=== PATIENT | female | born 1995 | race Two or more races ===

== ENCOUNTER 2024-11-20 18:49 | Inpatient (IN) | payer MEDICAID, OTHER ==
[~2024-11-20] VITALS: Ht 182.9 cm; Wt 102.1 kg
--- NOTE | 2024-11-20 19:26 | ED.PDOC ---
History of Present Illness HPI Comments 28 y/o F, with a Hx of DM - nonmedicated, presents with significant other for c/c of unhealing diabetic foot wound to bottom aspect of left foot, with associated swelling and pain and fever. Patient endorses on developing symptoms 2x days ago after cutting her foot by accident 3x weeks ago. Patient reports w rapping wound and using [id number] pain medication to no relief or improvement of symptoms. Denial of any wound discharge, nausea, vomiting, radiating pain or swelling, or further associated symptoms. Chief Complaint: Lower Extremity Time Seen by MD: 19:20 Reviewed Notes: Nurses Notes, Medications, Allergies Allergies: Coded Allergies: NO KNOWN ALLERGIES (Unverified , 11/20/24) Information Source: Patient Mode of Arrival: Wheelchair Severity: Moderate Timing: Days Duration: Since onset Prehospital treatment: None Past Medical History PAST MEDICAL HISTORY: DM All Other Systems: Reviewed and Negative (As per HPI) Physical Exam General Appearance: No Apparent Distress, Normal HEENT: Normal ENT Inspection, Pharynx Normal, TMs Normal Neck: Full Range of Motion, Non-Tender, Normal, Normal Inspection Respiratory: Chest Non-Tender, Lungs Clear, No Accessory Muscle Use, No Respiratory Distress, Normal Breath Sounds Cardiovascular: No Edema, No JVD, No Murmur, No Gallop, Normal Peripheral Pu lses, Regular Rate/Rhythm Breast Exam: Deferred Gastrointestinal: No Organomegaly, Non Tender, No Pulsatile Mass, Normal Bowel Sounds, Soft Genitalia: Deferred Pelvic: Deferred Rectal: Deferred Extremities: No calf tenderness, Normal capillary refill, Normal range of motion, Other (diffused edema with mild mild erythema associated with diabetic foot ulcer on plantar aspect of left foot ) Musculoskeletal : Apperance: Normal Neurologic: Alert, desktop support technician II-XII nml as Tested, No Motor Deficits, Normal Affect, Normal Mood, No Sensory Deficits Cerebellar Function: Normal Reflexes: Normal Skin: Dry, Normal Color, Warm Lymphatic: No Adenopathy Was a procedure done? Was a procedure done?: No Differential Dx Considerations may include: unhealing diabetic foot wound, cellulitis, dermatitis, viral syndrome, among others X-Ray, Labs, Meds, VS Vital Signs Date Time Temp Pulse Resp B/P (MAP) Pulse Ox O2 Delivery O2 Flow Rate FiO2 11/20/24 20:23 101.7 11/20/24 20:16 22 99 Room Air* 0 21 11/20/24 19:55 101.7 113 22 90/50 (63) 99 101.7 11/20/24 18:52 99.2 118 20 114/61 99 99.2 Lab Test 11/20/24 20:09 11/20/24 19:30 11/20/24 19:29 Range/Units POC Glucose 465 *H 70-106 mg/dl White Blood Count 22.4 H 4.4-10.8 10^3/uL Red Blood Count 4.06 4.0-5.20 10^6/uL Hemoglobin 11.9 L 12.2-16.2 g/dL Hematocrit 34.6 L 36.0-46.0 % Mean Corpuscular Volume 85.3 80.0-100.0 fL Mean Corpuscular Hemoglobin 29.4 28.0-32.0 pg Mean Corpuscular Hemoglobin Concent 34.5 32.0-36.0 g/dL Red Cell Distribution Width 13.1 11.8-14.3 % Platelet Count 332 140-450 10^3/uL Mean Platelet Volume 8.2 6.9-10.8 fL Neutrophils (%) (Auto) 91.6 H 37.0-80.0 % Lymphocytes (%) (Auto) 2.7 L 10.0-50.0 % Monocytes (%) (Auto) 5.5 0.0-12.0 % Eosinophils (%) (Auto) 0.0 0.0-7.0 % Basophils (%) (Auto) 0.2 0.0-2.0 % Neutrophils # (Auto) 20.5 H 1.6-8.6 10 ^3/uL Lymphocytes # (Auto) 0.6 0.4-5.4 10 ^3/uL Monocytes # (Auto) 1.2 0-1.3 10 ^3/uL Eosinophils # (Auto) 0 0-0.8 10 ^3/uL Basophils # (Auto) 0 0-0.2 10 ^3/uL Nucleated Red Blood Cells 0.0 % Sodium Level 129 L 136-145 mmol/L Potassium Level 3.7 3.5-5.1 mmol/L Chloride Level 94 L 98-107 mmol/L Carbon Dioxide Level 19 L 20-31 mmol/L Anion Gap 16 H 5-15 Blood Urea Nitrogen 15 9-23 mg/dL Creatinine 0.97 0.550-1.02 mg/dL Glomerular Filtration Rate Calc 81 >90 mL/min BUN/Creatinine Ratio 15.5 10.0-20.0 Serum Glucose 447 *H 74-106 mg/dL Lactic Acid Level 2.3 *H 0.4-2.0 mmol/L Calcium Level 9.2 8.7-10.4 mg/dL Total Bilirubin 2.1 H 0.2-1.0 mg/dL Aspartate Amino Transferase (AST) < 8 L 13-40 U/L Alanine Aminotransferase (ALT) 10 7-40 U/L Alkaline Phosphatase 128 H 46-116 U/L Total Protein 7.9 5.7-8.2 g/dL Albumin 4.2 3.2-4.8 g/dL Beta-Hydroxybutyric Acid 3.651 H < 0.4 mmol/L Blood Gas Specimen Type Venous Blood Gas Sample Site Vbg - n/a Blood Gas Patient Temperature 37.0 Arterial Blood Date Drawn [id number] Otoniel Test N/a Venous Blood pH 7.431 H 7.320-7.430 Venous Blood pCO2 at Patient Temp 28.7 L 38.0-54.0 mmHg Venous Blood pO2 at Patient Temp < 36.5 23.0-48.0 mmHg Venous Blood HCO3 18.7 L 22.0-29.0 mmol/L Venous Blood Base Excess -4.1 L -2.0-3.0 mmol/L Blood Gas Modality Vbg - n/a FiO2 % 21.0 Current Medications Medications (Trade) Dose Ordered Sig/Nadir Route Start Time Stop Time Status Last Admin Sodium Chloride 1,000 ml @ 1,000 mls/hr Q1H ONCE IVB 11/20/24 19:15 11/20/24 20:14 DC 11/20/24 19:58 Insulin Human Regular (InsuLIN R) 6 units ONCE ONCE SC 11/20/24 19:15 11/20/24 19:18 DC 11/20/24 20:09 Ondansetron HCl (Zofran) 4 mg ONCE ONCE IV 11/20/24 19:15 11/20/24 19:18 DC 11/20/24 20:06 Piperacillin Sod/ Tazobactam Sod 100 ml @ 100 mls/hr ONCE ONCE IV 11/20/24 19:15 11/20/24 20:14 DC 11/20/24 20:06 Acetaminophen (Tylenol Tablet) 1,000 mg ONCE ONCE PO 11/20/24 20:15 11/20/24 20:16 DC 11/20/24 20:23 Time of 1ST Reevaluation: 19:50 Reevaluation 1ST: Unchanged Patient Education/Counseling: Treatment, Other (need for admission ) Family Education/Counseling: Treatment, Other (need for admission ) SEPSIS Sepsis Screen Date sepsis recognized/suspect: Nov 20, 2024 Time Sepsis recognized/suspect: 1899 Recent Procedure: No On Antibiotic Therapy: No Respiratory Rate >20: No Heart Rate >90: No Temp<36 C (96.8 F) or >38.3 C: No SBP <90 or MAP <65 mmHG: No New Acute Mental Status Change: No Is the patient on CPAP, BIPAP,: No Physician Orders Blood Culture (11/20/24 19:11) Venous Blood Gas (11/20/24 19:11) Blood Glucose Q4h (11/20/24 19:11) L Foot 3 View Xray (11/20/24 19:11) Vital Signs Date Time Temp Pulse Resp B/P (MAP) Pulse Ox O2 Delivery O2 Flow Rate FiO2 11/20/24 20:23 101.7 11/20/24 20:16 22 99 Room Air* 0 21 11/20/24 19:55 101.7 113 22 90/50 (63) 99 101.7 11/20/24 18:52 99.2 118 20 114/61 99 99.2 Laboratory Tests Test 11/20/24 19:30 Lactic Acid Level 2.3 mmol/L (0.4-2.0) *H White Blood Count 22.4 10^3/uL (4.4-10.8) H Medications Medications Dose Ordered Sig/Nadir Route Start Time Stop Time Status Last Admin Dose Admin Acetaminophen 1,000 mg ONCE ONCE PO 11/20/24 20:15 11/20/24 20:16 DC 11/20/24 20:23 Insulin Human Regular 6 units ONCE ONCE SC 11/20/24 19:15 11/20/24 19:18 DC 11/20/24 20:09 Ondansetron HCl 4 mg ONCE ONCE IV 11/20/24 19:15 11/20/24 19:18 DC 11/20/24 20:06 Piperacillin Sod/ Tazobactam Sod 100 ml @ 100 mls/hr ONCE ONCE IV 11/20/24 19:15 11/20/24 20:14 DC 11/20/24 20:06 Sodium Chloride 1,000 ml @ 1,000 mls/hr Q1H ONCE IVB 11/20/24 19:15 11/20/24 20:14 DC 11/20/24 19:58 Departure 1 Departure Time of Disposition: 21:09 Impression: Primary Impression: Diabetic ulcer of left foot Additional Impression: Cellulitis of left foot Disposition: HOME / SELF CARE / HOMELESS Condition: Stable Discharged With: Self Comments Patient with uncontrolled diabetes with noncompliance and chronic hyperglycemia. Now patient has left foot ulcer with cellulitis. Patient will need admission for supportive care and further workup. Lab results reviewed. White blood cell count high at 22. Mild anemia with H and H of 12 and 35. Hyponatremia 129. Hypochloremia 94. Anion gap borderline elevated at 16. Glucose high at 447. Lactic acid slightly elevated 2.3. Beta hydroxybutyrate elevated at 3.65. Venous gas shows a normal pH. Patient was given IV fluids and insulin and IV antibiotics Zosyn and vancomycin. Patient will need to be admitted for supportive care and further workup. Critical Care Note Critical Care Time?: Yes (35 min-critical care time only) Critical care comment: Total critical care time: Approximately 36 minutes Due to a high probability of clinically significant, life threatening deterioration, the patient required my highest level of preparedness to intervene emergently and I personally spent this critical care time directly and personally managing the patient. This critical care time included obtaining a history; examining the patient; pulse oximetry; ordering and review of studies; arranging urgent treatment with development of a management plan; evaluation of patient's response to treatment; frequent reassessment; and, discussions with other providers. This critical care time was performed to assess and manage the high probability of imminent, life-threatening deterioration that could result in multi-organ failure. It was exclusive of separately billable procedures and treating other patients. Stability Stability form required: No Heart Score Heart Score: Heart Score Response (Comments) Value History N/A 0 EKG N/A 0 Age N/A 0 Risk Factors N/A 0 Troponin N/A 0 Total 0 I personally scribed for SURESH BURNS MD ([email or web address]) on 11/20/24 at 19:26. Electronically submitted by Candido Dominguez ([email or web address]). SURESH BURNS MD Nov 20, 2024 19:26
[2024-11-20 19:51] LABS: Hematocrit 34.6 % (36.0-46.0); Hemoglobin 11.9 g/dL (12.2-16.2); Mean Corpuscular Hemoglobin 29.4 pg (28.0-32.0); Mean Corpuscular Volume 85.3 fL (80.0-100.0); Nucleated Red Blood Cells % 0.0 %
[2024-11-20] MEDS: SODIUM CHLORIDE 0.9% 1,000 ML IVB ONE (19:58)
[2024-11-20] MEDS: PIPERACILLIN-TAZOB 3.375GM 100 ML IV ONE (20:06)
[2024-11-20] MEDS: ONDANSETRON HCL 4 MG/2 ML VIAL IV ONE (20:06)
[2024-11-20] MEDS: InsuLIN REG 1unit/0.01ml Soln (100units/ml) SC ONE (20:09)
[2024-11-20 20:14] LABS: Alanine Aminotransferase 10 U/L (7-40); Albumin 4.2 g/dL (3.2-4.8); Anion Gap 16 (5-15); BUN/Creatinine Ratio 15.5 (10.0-20.0); Blood Urea Nitrogen 15 mg/dL (9-23); Calcium 9.2 mg/dL (8.7-10.4); Potassium 3.7 mmol/L (3.5-5.1); Total Protein 7.9 g/dL (5.7-8.2)
[2024-11-20 20:16] VITALS: RESP 22; O2SAT 99
[2024-11-20 20:19] LABS: Carbon Dioxide 19 mmol/L (20-31); Chloride 94 mmol/L (98-107); Sodium 129 mmol/L (136-145)
[2024-11-20 20:20] LABS: Alkaline Phosphatase 128 U/L (46-116); Bilirubin, Total 2.1 mg/dL (0.2-1.0)
[2024-11-20] MEDS: ACETAMINOPHEN 325 MG TAB PO ONE (20:23)
[2024-11-20 20:29] LABS: Glucose 447 mg/dL (74-106); Lactic Acid w/Reflex 2.3 mmol/L (0.4-2.0)
--- NOTE | 2024-11-20 20:38 | DVH ---
CLINICAL INDICATION: pain / swelling / diabetic wound TECHNIQUE: XYXY L FOOT 3 VIEW XRAY Comparison: None FINDINGS/IMPRESSION: : There is no evidence of acute fracture or dislocation. Diffuse soft tissue swelling.
[2024-11-20] MEDS: VANCOMYCIN 1GM/250ML KIT 250 ML IV ONE (21:31)
[2024-11-20] MEDS: MORPHINE SULFATE 4 MG/ML SYR/VIAL IV ONE (21:39)
[2024-11-20] MEDS ORDERED: DEXTROSE (50%) 50ML SYRG IV PRN (23:30)
--- NOTE | 2024-11-20 23:39 | DVHHP2 ---
History of Present Illness Reason for Visit: Left foot wound History of Present Illness 28-year-old female presents for evaluation of left foot wound. Patient reports developing a wound three weeks ago when she was picking at a callus on her left foot. She states three days ago she noticed some purulent discharge and foul smell from the wound. She has been having fever since yesterday. No other acute complaints reported. Past Medical History Diabetes mellitus Past Surgical History Denies Family History Noncontributory Smoke: No ALCOHOL: occassional Drugs: None Lives: with Family Review of Systems Review of Systems Review of systems are currently negative otherwise addressed in HPI. Allergies: Coded Allergies: NO KNOWN ALLERGIES (Unverified , 11/20/24) Medications Current Medications Medications Dose Ordered Sig/Nadir Route Start Time Stop Time Status Last Admin Dose Admin Cefepime HCl 50 ml @ 12.5 mls/hr Q8HR IV 11/21/24 06:00 Diagnostic Test (Pha) 1 strip IQ4HR 11/21/24 00:00 Insulin Human Regular IQ4HR SC 11/21/24 00:00 Dextrose 50 ml UD PRN IV 11/20/24 23:30 Acetaminophen/ Hydrocodone Bitart 1 tab Q4HP PRN PO 11/20/24 23:30 Temazepam 15 mg QHSP PRN PO 11/20/24 23:30 Ondansetron HCl 4 mg Q4HP PRN IV 11/20/24 23:30 Acetaminophen 650 mg Q6HP PRN PO 11/20/24 23:30 UNV Morphine Sulfate 2 mg Q6HPRN PRN IV 11/20/24 23:30 UNV Exam Vital Signs Vital Signs Date Time Temp Pulse Resp B/P (MAP) Pulse Ox O2 Delivery O2 Flow Rate FiO2 11/20/24 21:38 101.3 100 18 97/49 (65) 100 101.3 11/20/24 20:16 Room Air* 0 21 Exam Gen: 28-year-old female in mild distress Skin: Warm, dry, normal color and texture, no rash. HEENT: Normocephalic atraumatic, mucous membranes moist and pink. Neck: Cervical and supraclavicular nodes normal without enlargement, trachea is midline, thyroid gland is normal without masses. Pulmonary: Clear to auscultation and percussion bilaterally. Cardiac: Regular rate and rhythm. No murmur Abdomen: Soft, nontender, nondistended, bowel sounds present all 4 quadrants, no guarding, no rigidity, no organomegaly. Extremities: No cyanosis, clubbing, left foot plantar wound with foul-smelling discharge Neuro: Cranial nerves II through XII grossly intact, normal affect and speech, no focal motor deficits. Labs/Xrays ORDERING PHYSICIAN: SURESH BURNS MD PROCEDURE(s): LFOOT - L FOOT 3 VIEW XRAY REASON: pain / swelling / diabetic wound ORDER NUMBER(s): [id number], ACCESSION NUMBER(s): [id number] CLINICAL INDICATION: pain / swelling / diabetic wound TECHNIQUE: XYXY L FOOT 3 VIEW XRAY Comparison: None FINDINGS/IMPRESSION: : There is no evidence of acute fracture or dislocation. Diffuse soft tissue swelling. Labs Test 11/20/24 21:51 11/20/24 21:20 11/20/24 19:30 11/20/24 19:29 Range/Units POC Glucose 448 *H 70-106 mg/dl Lactic Acid Level 1.6 0.4-2.0 mmol/L White Blood Count 22.4 H 4.4-10.8 10^3/uL Red Blood Count 4.06 4.0-5.20 10^6/uL Hemoglobin 11.9 L 12.2-16.2 g/dL Hematocrit 34.6 L 36.0-46.0 % Mean Corpuscular Volume 85.3 80.0-100.0 fL Mean Corpuscular Hemoglobin 29.4 28.0-32.0 pg Mean Corpuscular Hemoglobin Concent 34.5 32.0-36.0 g/dL Red Cell Distribution Width 13.1 11.8-14.3 % Platelet Count 332 140-450 10^3/uL Mean Platelet Volume 8.2 6.9-10.8 fL Neutrophils (%) (Auto) 91.6 H 37.0-80.0 % Lymphocytes (%) (Auto) 2.7 L 10.0-50.0 % Monocytes (%) (Auto) 5.5 0.0-12.0 % Eosinophils (%) (Auto) 0.0 0.0-7.0 % Basophils (%) (Auto) 0.2 0.0-2.0 % Neutrophils # (Auto) 20.5 H 1.6-8.6 10 ^3/uL Lymphocytes # (Auto) 0.6 0.4-5.4 10 ^3/uL Monocytes # (Auto) 1.2 0-1.3 10 ^3/uL Eosinophils # (Auto) 0 0-0.8 10 ^3/uL Basophils # (Auto) 0 0-0.2 10 ^3/uL Nucleated Red Blood Cells 0.0 % Sodium Level 129 L 136-145 mmol/L Potassium Level 3.7 3.5-5.1 mmol/L Chloride Level 94 L 98-107 mmol/L Carbon Dioxide Level 19 L 20-31 mmol/L Anion Gap 16 H 5-15 Blood Urea Nitrogen 15 9-23 mg/dL Creatinine 0.97 0.550-1.02 mg/dL Glomerular Filtration Rate Calc 81 >90 mL/min BUN/Creatinine Ratio 15.5 10.0-20.0 Serum Glucose 447 *H 74-106 mg/dL Calcium Level 9.2 8.7-10.4 mg/dL Total Bilirubin 2.1 H 0.2-1.0 mg/dL Aspartate Amino Transferase (AST) < 8 L 13-40 U/L Alanine Aminotransferase (ALT) 10 7-40 U/L Alkaline Phosphatase 128 H 46-116 U/L Total Protein 7.9 5.7-8.2 g/dL Albumin 4.2 3.2-4.8 g/dL Beta-Hydroxybutyric Acid 3.651 H < 0.4 mmol/L Blood Gas Specimen Type Venous Blood Gas Sample Site Vbg - n/a Blood Gas Patient Temperature 37.0 Arterial Blood Date Drawn [id number] Otoniel Test N/a Venous Blood pH 7.431 H 7.320-7.430 Venous Blood pCO2 at Patient Temp 28.7 L 38.0-54.0 mmHg Venous Blood pO2 at Patient Temp < 36.5 23.0-48.0 mmHg Venous Blood HCO3 18.7 L 22.0-29.0 mmol/L Venous Blood Base Excess -4.1 L -2.0-3.0 mmol/L Blood Gas Modality Vbg - n/a FiO2 % 21.0 SEPSIS Sepsis Screen Date sepsis recognized/suspect: Nov 20, 2024 Time Sepsis recognized/suspect: 1999 Recent Procedure: No On Antibiotic Therapy: No Respiratory Rate >20: Yes Heart Rate >90: Yes Temp<36 C (96.8 F) or >38.3 C: Yes SBP <90 or MAP <65 mmHG: No New Acute Mental Status Change: No Is the patient on CPAP, BIPAP,: No Physician Orders Blood Culture (11/20/24 19:11) Venous Blood Gas (11/20/24 19:11) Blood Glucose Q4h (11/20/24 19:11) L Foot 3 View Xray (11/20/24 19:11) Cefepime 1gm/50ml (Maxipime 1gm/50ml) (11/21/24 06:00) Wound Culture W/ Gs (11/20/24 23:18) *Podiatry Consult [facility]on(Dvmg) (11/20/24 23:18) Consistent Carb(Ccho)Diabetes (11/21/24 Breakfast) Hemoglobin A1c (11/20/24 23:18) Basic Metabolic Panel (11/21/24 04:00) Glucose Blood (Accu-Chek Comfort Curve T (11/21/24 00:00) Insulin R (Human) (Insulin R) (11/21/24 00:00) Dextrose 50% Syringe (11/20/24 23:30) Sodium Chloride 0.9% (11/20/24 23:30) Admit (11/20/24 23:18) Hydrocodone-Acet 5/325mg Tab ([place] 5/32 (11/20/24 23:30) Temazepam (Restoril) (11/20/24 23:30) Ondansetron Hcl (Zofran) (11/20/24 23:30) Complete Blood Count (11/21/24 04:00) Condition: Stable (11/20/24 23:18) Acetaminophen Tablet (Tylenol Tablet) (11/20/24 23:30) Bedrest With Bathroom Privileg (11/20/24 23:18) Morphine Sulfate Injection (11/20/24 23:30) Vital Signs Date Time Temp Pulse Resp B/P (MAP) Pulse Ox O2 Delivery O2 Flow Rate FiO2 11/20/24 21:38 101.3 100 18 97/49 (65) 100 101.3 11/20/24 21:23 101.3 11/20/24 20:23 101.7 11/20/24 20:16 22 99 Room Air* 0 21 11/20/24 19:55 101.7 113 22 90/50 (63) 99 101.7 11/20/24 18:52 99.2 118 20 114/61 99 99.2 Laboratory Tests Test 11/20/24 19:30 11/20/24 21:20 Lactic Acid Level 2.3 mmol/L (0.4-2.0) *H 1.6 mmol/L (0.4-2.0) White Blood Count 22.4 10^3/uL (4.4-10.8) H Medications Medications Dose Ordered Sig/Nadir Route Start Time Stop Time Status Last Admin Dose Admin Acetaminophen 1,000 mg ONCE ONCE PO 11/20/24 20:15 11/20/24 20:16 DC 11/20/24 20:23 1,000 MG Insulin Human Regular 6 units ONCE ONCE SC 11/20/24 19:15 11/20/24 19:18 DC 11/20/24 20:09 6 UNITS Ondansetron HCl 4 mg ONCE ONCE IV 11/20/24 19:15 11/20/24 19:18 DC 11/20/24 20:06 4 MG Piperacillin Sod/ Tazobactam Sod 100 ml @ 100 mls/hr ONCE ONCE IV 11/20/24 19:15 11/20/24 20:14 DC 11/20/24 20:06 100 MLS/HR Sodium Chloride 1,000 ml @ 1,000 mls/hr Q1H ONCE IVB 11/20/24 19:15 11/20/24 20:14 DC 11/20/24 19:58 1,000 MLS/HR Vancomycin HCl 250 ml @ 250 mls/hr ONCE ONCE IV 11/20/24 19:15 11/20/24 20:14 DC 11/20/24 21:31 250 MLS/HR Assessment/Plan Assessment/Plan Assessment Left foot infected wound Cellulitis of the left foot Uncontrolled diabetes mellitus Obesity Plan Admit the patient to Med surge to the hospitalist Cefepime/vancomycin Wound culture pending Podiatry consult Q.4 hour Accu-Cheks with aggressive scale Maintenance IV fluids Continue treatment per orders. Plan discussed with: Patient My Orders Orders - ABILIO HAYDEN Procedure Category Date Status Time Cefepime 1gm/50ml PHA 11/21/24 In Process (Maxipime 1gm/50ml) 06:00 Wound Culture W/ Gs KRISTIAN 11/20/24 Logged 23:18 *Podiatry Consult CONS 11/20/24 Transmitted Musson(Dvmg) 23:18 Consistent DIET 11/21/24 Transmitted Carb(Ccho)Diabetes Breakfast Hemoglobin A1c LAB 11/20/24 In Process 23:18 Basic Metabolic Panel LAB 11/21/24 Verified 04:00 Glucose Blood PHA 11/21/24 In Process (Accu-Chek Comfort 00:00 Insulin R (Human) PHA 11/21/24 In Process (Insulin R) 00:00 Dextrose 50% Syringe PHA 11/20/24 In Process 23:30 Sodium Chloride 0.9% PHA 11/20/24 In Process 23:30 Admit ADMIT 11/20/24 Transmitted 23:18 Hydrocodone-Acet PHA 11/20/24 In Process 5/325mg Tab ([place] 23:30 Temazepam (Restoril) PHA 11/20/24 In Process 23:30 Ondansetron Hcl PHA 11/20/24 In Process (Zofran) 23:30 Complete Blood Count LAB 11/21/24 Verified 04:00 Condition: Stable PA 11/20/24 In Process 23:18 Acetaminophen Tablet PHA 11/20/24 Logged (Tylenol Tablet) 23:30 Bedrest With Bathroom PA 11/20/24 In Process Privileg 23:18 Morphine Sulfate PHA 11/20/24 Logged Injection 23:30 Date of Service: Nov 20, 2024 Billing Provider: ABILIO HAYDEN Common Visit Codes: [id number] INP/OBS CARE (HIGH) ABILIO HAYDEN Nov 20, 2024 23:39
[2024-11-21] VITALS (9 sets, daily range): BP systolic 95–129; BP diastolic 57–82; PULSE 96–107; RESP 15–20; TEMP 98.3–99.9; O2SAT 95–99
[2024-11-21] MEDS: SODIUM CHLORIDE 0.9% 1,000 ML IV ONE
[2024-11-21] MEDS: ACCU-CHEK COMFORT CURVE STRIP VI SCH ×2 (00:07→17:22)
[2024-11-21] MEDS: InsuLIN REG 1unit/0.01ml Soln (100units/ml) SC SCH ×3 (00:10→21:32)
[2024-11-21] MEDS: HYDROcodone-ACET 5/325MG TAB PO PRN (02:10)
[2024-11-21] MEDS: CEFEPIME 1GM/50ML 50 ML IV SCH (05:17)
[2024-11-21 08:27] LABS: Hematocrit 26.9 % (36.0-46.0); Hemoglobin 9.5 g/dL (12.2-16.2); Mean Corpuscular Hemoglobin 29.4 pg (28.0-32.0); Mean Corpuscular Volume 83.2 fL (80.0-100.0); Nucleated Red Blood Cells % 0.0 %
[2024-11-21 08:51] LABS: Anion Gap 8 (5-15); Carbon Dioxide 23 mmol/L (20-31)
[2024-11-21 08:54] LABS: Calcium 8.1 mg/dL (8.7-10.4); Chloride 99 mmol/L (98-107); Potassium 3.6 mmol/L (3.5-5.1); Sodium 130 mmol/L (136-145)
[2024-11-21 08:57] LABS: BUN/Creatinine Ratio 23.7 (10.0-20.0); Blood Urea Nitrogen 18 mg/dL (9-23)
[2024-11-21 09:09] LABS: Glucose 212 mg/dL (74-106)
--- NOTE | 2024-11-21 13:05 | DVHCONRES ---
Date Seen: Nov 21, 2024 Reason for Consultation Left foot wound History of Present Illness 28-year-old female presents for evaluation of left foot wound. Patient reports developing a wound three weeks ago when she was picking at a callus on her left foot. She states three days ago she noticed some purulent discharge and foul smell from the wound. She has been having fever since yesterday. No other acute complaints reported. Past Medical History See H&P Past Surgical History See H&P Family History: Patient reports no known family medical history. Allergies: Coded Allergies: NO KNOWN ALLERGIES (Unverified , 11/20/24) Current Medications Current Medications Medications (Trade) Dose Ordered Sig/Nadir Route PRN Reason Start Time Stop Time Status Last Admin Cefepime HCl 50 ml @ 12.5 mls/hr Q8HR IV 11/21/24 06:00 11/21/24 12:46 Diagnostic Test (Pha) (Accu-Chek Comfort Curve T) 1 strip IQ4HR 11/21/24 00:00 11/21/24 11:55 Insulin Human Regular (InsuLIN R) IQ4HR SC 11/21/24 00:00 11/21/24 12:45 Dextrose 50 ml UD PRN IV Blood Sugar LESS THAN 60 11/20/24 23:30 Acetaminophen/ Hydrocodone Bitart ([place] 5/325MG Tab) 1 tab Q4HP PRN PO MODERATE PAIN (4-6 PAIN SCALE) 11/20/24 23:30 11/21/24 11:56 Temazepam (Restoril) 15 mg QHSP PRN PO FOR INSOMNIA 11/20/24 23:30 Ondansetron HCl (Zofran) 4 mg Q4HP PRN IV NAUSEA / VOMITING 11/20/24 23:30 Acetaminophen (Tylenol Tablet) 650 mg Q6HP PRN PO PAIN SCALE 1-3 OR TEMP>100.4 11/20/24 23:30 Morphine Sulfate 2 mg Q6HPRN PRN IV SEVERE PAIN (7-10 PAIN SCALE) 11/20/24 23:30 Vital Signs Vital Signs Date Time Temp Pulse Resp B/P (MAP) Pulse Ox O2 Delivery O2 Flow Rate FiO2 11/21/24 12:52 99.0 104 20 123/78 (93) 99 99.0 11/21/24 03:23 Room Air* 0 21 Physical Exam Dermatological: Skin is dry with mild erythema and some maceration around the wound site No gross deformities noted Mild non-pitting edema present bilaterally Left foot plantar wound with purulent drainage and swelling Vascular: Dorsalis pedis and posterior tibial pulses are 1+ bilaterally Capillary refill is under 2 seconds Skin temperature is warm bilaterally Neurologic: Protective sensation is absent on the plantar forefoot bilaterally Monofilament testing reveals decreased sensation in multiple plantar sites Musculoskeletal: Range of motion at the ankle and MTP joints is within normal limits. Strength is 5/5 in all tested muscle groups. Gait is antalgic due to offloading of the affected limb. Labs/Diagnostic Data Labs Test 11/21/24 11:59 11/21/24 08:12 11/20/24 21:20 11/20/24 19:30 Range/Units POC Glucose 274 H 70-106 mg/dl White Blood Count 17.1 H 4.4-10.8 10^3/uL Red Blood Count 3.23 L 4.0-5.20 10^6/uL Hemoglobin 9.5 #L 12.2-16.2 g/dL Hematocrit 26.9 #L 36.0-46.0 % Mean Corpuscular Volume 83.2 80.0-100.0 fL Mean Corpuscular Hemoglobin 29.4 28.0-32.0 pg Mean Corpuscular Hemoglobin Concent 35.4 32.0-36.0 g/dL Red Cell Distribution Width 12.7 11.8-14.3 % Platelet Count 242 140-450 10^3/uL Mean Platelet Volume 7.8 6.9-10.8 fL Neutrophils (%) (Auto) 86.2 H 37.0-80.0 % Lymphocytes (%) (Auto) 5.7 L 10.0-50.0 % Monocytes (%) (Auto) 7.7 0.0-12.0 % Eosinophils (%) (Auto) 0.1 0.0-7.0 % Basophils (%) (Auto) 0.3 0.0-2.0 % Neutrophils # (Auto) 14.8 H 1.6-8.6 10 ^3/uL Lymphocytes # (Auto) 1.0 0.4-5.4 10 ^3/uL Monocytes # (Auto) 1.3 0-1.3 10 ^3/uL Eosinophils # (Auto) 0 0-0.8 10 ^3/uL Basophils # (Auto) 0 0-0.2 10 ^3/uL Nucleated Red Blood Cells 0.0 % Sodium Level 130 L 136-145 mmol/L Potassium Level 3.6 3.5-5.1 mmol/L Chloride Level 99 98-107 mmol/L Carbon Dioxide Level 23 20-31 mmol/L Anion Gap 8 5-15 Blood Urea Nitrogen 18 9-23 mg/dL Creatinine 0.76 0.550-1.02 mg/dL Glomerular Filtration Rate Calc 108 >90 mL/min BUN/Creatinine Ratio 23.7 H 10.0-20.0 Serum Glucose 212 H 74-106 mg/dL Calcium Level 8.1 L 8.7-10.4 mg/dL Lactic Acid Level 1.6 0.4-2.0 mmol/L Hemoglobin A1c 12.1 H <5.7 % A1C Total Bilirubin 2.1 H 0.2-1.0 mg/dL Aspartate Amino Transferase (AST) < 8 L 13-40 U/L Alanine Aminotransferase (ALT) 10 7-40 U/L Alkaline Phosphatase 128 H 46-116 U/L Total Protein 7.9 5.7-8.2 g/dL Albumin 4.2 3.2-4.8 g/dL Beta-Hydroxybutyric Acid 3.651 H < 0.4 mmol/L Test 11/20/24 19:29 Range/Units Blood Gas Specimen Type Venous Blood Gas Sample Site Vbg - n/a Blood Gas Patient Temperature 37.0 Arterial Blood Date Drawn [id number] Otoniel Test N/a Venous Blood pH 7.431 H 7.320-7.430 Venous Blood pCO2 at Patient Temp 28.7 L 38.0-54.0 mmHg Venous Blood pO2 at Patient Temp < 36.5 23.0-48.0 mmHg Venous Blood HCO3 18.7 L 22.0-29.0 mmol/L Venous Blood Base Excess -4.1 L -2.0-3.0 mmol/L Blood Gas Modality Vbg - n/a FiO2 % 21.0 Problems(with codes): (1) Cellulitis of left foot (2) Diabetic ulcer of left foot Plan/Recommendation ASSESSMENT: Patient is a 28 year old seen on the floor for a worsening ulcer PLAN: - The patients chart was reviewed, clinical findings were discussed with the patient, the etiologies of the conditions were discussed in detail, and a treatment plan was agreed to at this time, with both oral and written instructions provided. - reviewed advanced imaging - discussed plan is to perform an incision and drainage - patient patient did eat lunch so we will do it under local - take him to the OR today - we will get cultures in the OR - can weightbear as tolerated in postoperative shoe All questions were answered and concerns addressed to the patient's satisfaction. The patient was given the phone number to the clinic and was told how to make contact with the clinic should any concerns or questions arise. Patient understands that if any questions or concerns arise prior to the next appointment, we should be contacted immediately. FOLLOW-UP: Continue to follow while inpatient Plan discussed with: Patient Visit Coding Podiatry Date of Service if different f: Nov 21, 2024 Billing Provider: DAISY JACKSON DPM Podiatry Common Visit Codes: CONSULT ONLY Podiatry Consult Codes: [id number]/[id number] NEW/EST HI 80 DAISY JACKSON DPM Nov 21, 2024 13:04
[2024-11-21] MEDS: BUPIVACAINE 0.5% MPF INJ 30ML SDV IJ ONE (14:32)
--- NOTE | 2024-11-21 14:41 | DVHOP2 ---
Operative Report - 2 Report Details Date: 11/21/24 Preop Diagnosis: 1. Left foot abscess 2. Left foot necrotizing fasciitis 3. Left foot cellulitis 4. Left foot diabetic ulcer Postop Diagnosis: Same as preop Surgeon: Daisy Jackson MD Anesthesiologist: None Anesthesia: Local Consent: The patient was informed of the risks and benefits of the procedure. These include but are not limited to complications of anesthesia, postoperative infection, incomplete relief of symptoms, recurrence of symptoms, damage to blood vessels, nerves and tendons, deep venous thrombosis, pulmonary embolism and possible need for repeat surgery in the future. Complications: None Estimated Blood Loss: Minimal Fluids: See anesthesia Findings: Consistent with diagnosis Indications for Surgery: Worsening left foot abscess Name of Procedure Performed 1. Left foot I&D to abscess (45971) Procedure Details Procedure Details: PRE-PROCEDURE INFORMATION: In the pre-op holding area, the extremity to be operated on was clearly marked and the patient verified correct laterality of the marking. The patient was transferred to the OR table and placed in a supine position. A timeout was performed in which identification of the correct patient, procedure, location, and materials was done. The left foot and leg were prepped and draped in normal sterile fashion. DESCRIPTION OF PROCEDURE: Attention was directed to the left dorsal and plantar foot where area of fluctuance was noted. An incision was made dorsally and plantarly over this area and was deepened through blunt dissection. The incision was deepened to the level of abscess and bone. Care was taken to the dissection to avoid any neurovascular and tendinous structures. The incision was deepened to the level of the abscess which appeared to be purulent fluid consistent with pus. All of the necrotic tissue was then removed at that point.. After the abscess was drained, the area was irrigated with 3 L normal saline using cysto tubing. Deep cultures were then obtained from the wound. The area was then inspected and any areas of tracking, especially along the tendons were also drained. The wound was packed with Betadine-soaked gauze and we will need to be closed at a later date. POSTOPERATIVE INFORMATION: The patient tolerated the above noted procedure and anesthesia well and was transferred to the PACU with vital signs stable, and vascular status intact with capillary refill intact to all digits. Deep cultures were taken. Continue IV antibiotics. Patient will need multiple I and D's due to necrotizing fasciitis. Condition Good Disposition Still a Patient Visit Coding Podiatry Date of Service if different f: Nov 21, 2024 Billing Provider: DAISY JACKSON DPM Podiatry Common Visit Codes: PROCEDURE ONLY DAISY JACKSON DPM Nov 21, 2024 14:41
--- NOTE | 2024-11-21 15:40 | DVHPN2 ---
Progress Note Date Seen: Nov 21, 2024 Medical Necessity Reason Pt with a Central, PICC or Fol: No Subjective Patient reports: No new complaints Review of Systems: HEENT:Normal, CVS:Normal, RESPIRATORY:Normal, GI:Normal, :Normal, MSK:Normal, NEURO:Normal Objective vital signs Vital Sign Date Time Temp Pulse Resp B/P (MAP) Pulse Ox O2 Delivery O2 Flow Rate FiO2 11/21/24 14:43 102 16 127/81 (96) 100 11/21/24 12:52 99.0 99.0 11/21/24 03:23 Room Air* 0 21 Total Intake and Output 11/20/24 11/20/24 11/21/24 15:00 23:00 07:00 Intake Total 1100 ml 480 ml Balance 1100 ml 480 ml medications Current Medications Medications Dose Ordered Sig/Nadir Route Start Time Stop Time Status Last Admin Dose Admin Cefepime HCl 50 ml @ 12.5 mls/hr Q8HR IV 11/21/24 06:00 11/21/24 12:46 12.5 MLS/HR Diagnostic Test (Pha) 1 strip IQ4HR 11/21/24 00:00 11/21/24 11:55 1 STRIP Insulin Human Regular IQ4HR SC 11/21/24 00:00 11/21/24 12:45 12 UNITS Dextrose 50 ml UD PRN IV 11/20/24 23:30 Acetaminophen/ Hydrocodone Bitart 1 tab Q4HP PRN PO 11/20/24 23:30 11/21/24 11:56 1 TAB Temazepam 15 mg QHSP PRN PO 11/20/24 23:30 Ondansetron HCl 4 mg Q4HP PRN IV 11/20/24 23:30 Acetaminophen 650 mg Q6HP PRN PO 11/20/24 23:30 Morphine Sulfate 2 mg Q6HPRN PRN IV 11/20/24 23:30 Examination: GENERAL:Normal, HEENT:Normal, NECK:Normal, LUNGS:Normal, CVS:Normal, ABDOMEN:Normal, MSK:Normal, MSK:Abnormal (left foot dressing), SKIN:Normal, NEURO:Normal, :Normal laboratory and microbiology Laboratory Tests 11/21/24 08:12 Test 11/21/24 08:12 Range/Units Serum Glucose 212 H 74-106 mg/dL Problem List/Assessment/Plan Problem List/Assessment/Plan #1 left foot cellulitis/abscess with sepsis s/p surg: iv antibiotics, ivf #2 uncontrolled dm: lantus, ssi #3 non compliance Plan discussed with: Patient My Orders My Orders Orders - ABILIO LIU MD Procedure Category Date Status Time Urinalysis LAB 11/21/24 Uncollected 15:36 Insulin Lantus PHA 11/21/24 Verified (Glargine) (Lantus) 22:00 NS PHA 11/21/24 Verified 15:45 Glucose Blood PHA 11/21/24 Verified (Accu-Chek Comfort 17:00 Agressive Insulin Ss PHA 11/21/24 Verified 17:00 Bedtime Insulin Ss PHA 11/21/24 Verified 22:00 Dextrose 50% Syringe PHA 11/21/24 Verified 15:45 Vancomycin PHA 11/21/24 Verified 15:45 Complete Blood Count LAB 11/22/24 Verified 06:00 Comprehensive LAB 11/22/24 Verified Metabolic Panel 06:00 Beta Hcg, Quantitative LAB 11/22/24 Verified 06:00 Dietary Evaluation Review Comments: Nutrition Recommendation: 1) Khanh 1 pk BID 2) CCHO 75gm diet 3) Refer [employer] for diabetes education Expected Outcomes/Goals: Wound to improve Lab values to improve Fu 3-5 days Date of Service: Nov 21, 2024 Billing Provider: ABILIO LIU MD Common Visit Codes: [id number] INP/OBS CARE(HIGH) ABILIO LIU MD Nov 21, 2024 15:40
[2024-11-21] MEDS ORDERED: VANCOMYCIN PER PHARMACY 0 MG IV SCH (15:45)
[2024-11-21] MEDS ORDERED: DEXTROSE (50%) 50ML SYRG IV PRN (15:45)
[2024-11-21] MEDS: ONDANSETRON HCL 4 MG/2 ML VIAL IV PRN (17:21)
[2024-11-21] MEDS: MORPHINE SULFATE INJ 2 MG/ml SYRG IV PRN (17:22)
[2024-11-21] MEDS: SODIUM CHLORIDE 0.9% 1,000 ML IV SCH (17:50)
[2024-11-21] MEDS: VANCOMYCIN 1GM/250ML KIT 250 ML IV SCH ×2 (17:50→19:46)
[2024-11-21] MEDS: INSULIN LANTUS (GLARGINE) 1 /0.01ml (100units/ml) SC SCH (21:33)
[2024-11-21] MEDS: ACETAMINOPHEN 325 MG TAB PO PRN (23:56)
[2024-11-22] VITALS (8 sets, daily range): BP systolic 104–131; BP diastolic 66–82; PULSE 93–113; RESP 17–19; TEMP 98.1–99.7; O2SAT 98–100
[2024-11-22 05:30] LABS: Hematocrit 27.2 % (36.0-46.0); Hemoglobin 9.5 g/dL (12.2-16.2); Mean Corpuscular Hemoglobin 29.1 pg (28.0-32.0); Mean Corpuscular Volume 83.5 fL (80.0-100.0); Nucleated Red Blood Cells % 0.0 %
[2024-11-22 05:50] LABS: Alanine Aminotransferase 23 U/L (7-40); Albumin 3.1 g/dL (3.2-4.8); Alkaline Phosphatase 153 U/L (46-116); Anion Gap 10 (5-15); BUN/Creatinine Ratio 17.2 (10.0-20.0); Bilirubin, Total 1.2 mg/dL (0.2-1.0); Blood Urea Nitrogen 11 mg/dL (9-23); Calcium 8.4 mg/dL (8.7-10.4); Carbon Dioxide 23 mmol/L (20-31); Chloride 99 mmol/L (98-107); Glucose 288 mg/dL (74-106); Potassium 3.7 mmol/L (3.5-5.1); Sodium 132 mmol/L (136-145); Total Protein 6.1 g/dL (5.7-8.2)
[2024-11-22 07:34] LABS: Opiate Scree,Urine Neg (NEGATIVE)
[2024-11-22 07:35] LABS: Cannabinoid Screen, Urine Pos (NEGATIVE)
[2024-11-22 07:42] LABS: Amphetamine Screen, Urine Neg (NEGATIVE); Barbiturate Scree,Urine Neg (NEGATIVE); Benzodiazephine Screen, Urine Neg (NEGATIVE); Cocaine Screen, Urine Neg (NEGATIVE); Phencyclidine Screen, Urine Neg (NEGATIVE)
[2024-11-22] MEDS: VANCOMYCIN 1GM/250ML KIT 250 ML IV SCH (08:01)
--- NOTE | 2024-11-22 12:19 | DVHPN2 ---
Subjective The patient is seen and examined at bedside. The patient complained of leg pain. Reviewed: Care Plan, H&P, Labs, Medications, Previous Orders, Radiology Changes from previous H/P or p: No Changes Objective Vitals Vital Signs Date Time Temp Pulse Resp B/P (MAP) Pulse Ox O2 Delivery O2 Flow Rate FiO2 11/22/24 09:00 99.6 99 17 115/66 (82) 98 99.6 11/21/24 20:00 Room Air* 0 21 Intake/Output Intake and Output 11/22/24 07:00 Intake Total 1520 ml Balance 1520 ml Intake Oral 1520 ml # Voids 5 General Appearance: Alert, Oriented X3, Cooperative, No acute distress HEENT: Atraumatic, PERRLA, EOMI, Mucous membr. moist/pink Neck: Supple Lungs: Clear to auscultation, Normal air movement Cardiovascular: Regular rate, Normal S1, Normal S2, No murmurs, Gallops, Rubs Abdomen: Normal bowel sounds, Soft, No tenderness Neuro: Cranial nerves 3-12 NL Psych/Mental Status: Mental status NL Medications Current Medications Medications Dose Ordered Sig/Nadir Route Start Time Stop Time Status Last Admin Dose Admin Cefepime HCl 50 ml @ 12.5 mls/hr Q8HR IV 11/21/24 06:00 11/22/24 06:05 12.5 MLS/HR Acetaminophen/ Hydrocodone Bitart 1 tab Q4HP PRN PO 11/20/24 23:30 11/21/24 11:56 1 TAB Temazepam 15 mg QHSP PRN PO 11/20/24 23:30 Ondansetron HCl 4 mg Q4HP PRN IV 11/20/24 23:30 11/21/24 17:21 4 MG Acetaminophen 650 mg Q6HP PRN PO 11/20/24 23:30 11/22/24 09:51 650 MG Morphine Sulfate 2 mg Q6HPRN PRN IV 11/20/24 23:30 11/21/24 17:22 2 MG Insulin Glargine 15 units HS SC 11/21/24 22:00 11/21/24 21:33 15 UNITS Sodium Chloride 1,000 ml @ 75 mls/hr [id number] IV 11/21/24 15:45 11/21/24 17:50 75 MLS/HR Diagnostic Test (Pha) 1 strip ACHS 11/21/24 17:00 11/22/24 11:30 1 STRIP Insulin Human Regular AC SC 11/21/24 17:00 11/22/24 11:30 20 UNITS Insulin Human Regular HS SC 11/21/24 22:00 11/21/24 21:32 6 UNITS Dextrose 50 ml UD PRN IV 11/21/24 15:45 Vancomycin HCl 0 ml @ 0 mls/hr UD IV 11/21/24 15:45 Vancomycin HCl 250 ml @ 250 mls/hr Q12H IV 11/22/24 08:00 11/22/24 08:01 250 MLS/HR Laboratory Results Laboratory Tests 11/22/24 05:06 Chemistry Test 11/22/24 05:06 Albumin 3.1 g/dL (3.2-4.8) L Calcium Level 8.4 mg/dL (8.7-10.4) L Total Protein 6.1 g/dL (5.7-8.2) LFT Test 11/22/24 05:06 Alanine Aminotransferase (ALT) 23 U/L (7-40) Alkaline Phosphatase 153 U/L (46-116) H Aspartate Amino Transferase (AST) 18 U/L (13-40) Total Bilirubin 1.2 mg/dL (0.2-1.0) H Microbiology Microbiology Date/Time Source Procedure Growth Status 11/21/24 14:30 Foot Left Gram Stain Pending Resulted 11/21/24 14:30 Foot Left Anaerobic Culture Pending Resulted 11/21/24 14:30 Aerobic Culture - Preliminary Streptococcus Group B Resulted 11/20/24 19:30 Blood Blood Culture - Preliminary NO GROWTH AFTER 24 HOURS OF INCUBATION. Resulted Labs and/or images reviewed: Labs reviewed by me Assessment/Plan Assessment/Plan #1 left foot cellulitis/abscess with sepsis s/p I&D #2 uncontrolled dm type 2 #3 non compliance Continuing current management. Continuing with IV antibiotic vancomycin and cefepime. Continuing with sliding scale insulin. Continuing with Lantus. Wound care per petal cutter recommendation. We will follow up with culture. Continuing with pain medication. This medical document was created using an electronic medical record system with [employer] direct computerized dictation system. Although this document has been carefully reviewed, there may still be some phonetic and typographical errors. These areas are purely typographical due to imperfections of the software programs, and do not reflect any compromise in the patient's medical care. Plan discussed with: Patient Date of Service: Nov 21, 2024 Billing Provider: CHANDAN MUIR MD Common Visit Codes: [id number] INP/OBS CARE(HIGH) CHANDAN MUIR MD Nov 22, 2024 12:19
[2024-11-23] VITALS (7 sets, daily range): BP systolic 109–138; BP diastolic 69–80; PULSE 95–101; RESP 18–20; TEMP 98.2–99.5; O2SAT 95–99
[2024-11-23 09:22] LABS: Hematocrit 29.0 % (36.0-46.0); Hemoglobin 10.1 g/dL (12.2-16.2); Mean Corpuscular Hemoglobin 29.0 pg (28.0-32.0); Mean Corpuscular Volume 83.3 fL (80.0-100.0); Nucleated Red Blood Cells % 0.0 %
[2024-11-23 09:30] LABS: Chloride 100 mmol/L (98-107)
[2024-11-23 09:31] LABS: Anion Gap 9 (5-15); Carbon Dioxide 26 mmol/L (20-31)
[2024-11-23 09:32] LABS: Calcium 8.8 mg/dL (8.7-10.4)
[2024-11-23 09:37] LABS: BUN/Creatinine Ratio 16.7 (10.0-20.0); Blood Urea Nitrogen 10 mg/dL (9-23); Glucose 237 mg/dL (74-106); Potassium 3.2 mmol/L (3.5-5.1); Sodium 135 mmol/L (136-145)
--- NOTE | 2024-11-23 13:07 | DVHPN2 ---
Subjective The patient is seen and examined at bedside. The patient complained of leg pain. Blood glucose is not control. Reviewed: Care Plan, H&P, Labs, Medications, Previous Orders, Radiology Changes from previous H/P or p: No Changes Objective Vitals Vital Signs Date Time Temp Pulse Resp B/P (MAP) Pulse Ox O2 Delivery O2 Flow Rate FiO2 11/23/24 12:55 99.5 97 18 130/76 (94) 95 99.5 11/23/24 08:15 Room Air* 0 21 Intake/Output Intake and Output 11/23/24 07:00 Intake Total 3955 ml Balance 3955 ml Intake Oral 3955 ml # Voids 5 General Appearance: Alert, Oriented X3, Cooperative, No acute distress HEENT: Atraumatic, PERRLA, EOMI, Mucous membr. moist/pink Neck: Supple Lungs: Clear to auscultation, Normal air movement Cardiovascular: Regular rate, Normal S1, Normal S2, No murmurs, Gallops, Rubs Abdomen: Normal bowel sounds, Soft, No tenderness Neuro: Cranial nerves 3-12 NL Psych/Mental Status: Mental status NL Medications Current Medications Medications Dose Ordered Sig/Nadir Route Start Time Stop Time Status Last Admin Dose Admin Cefepime HCl 50 ml @ 12.5 mls/hr Q8HR IV 11/21/24 06:00 11/23/24 06:07 12.5 MLS/HR Acetaminophen/ Hydrocodone Bitart 1 tab Q4HP PRN PO 11/20/24 23:30 11/21/24 11:56 1 TAB Temazepam 15 mg QHSP PRN PO 11/20/24 23:30 Ondansetron HCl 4 mg Q4HP PRN IV 11/20/24 23:30 11/21/24 17:21 4 MG Acetaminophen 650 mg Q6HP PRN PO 11/20/24 23:30 11/23/24 00:37 650 MG Morphine Sulfate 2 mg Q6HPRN PRN IV 11/20/24 23:30 11/21/24 17:22 2 MG Insulin Glargine 15 units HS SC 11/21/24 22:00 11/22/24 22:55 15 UNITS Sodium Chloride 1,000 ml @ 75 mls/hr [id number] IV 11/21/24 15:45 11/23/24 10:53 75 MLS/HR Diagnostic Test (Pha) 1 strip ACHS 11/21/24 17:00 11/23/24 11:52 1 STRIP Insulin Human Regular AC SC 11/21/24 17:00 11/23/24 11:55 12 UNITS Insulin Human Regular HS SC 11/21/24 22:00 11/22/24 22:54 8 UNITS Dextrose 50 ml UD PRN IV 11/21/24 15:45 Vancomycin HCl 0 ml @ 0 mls/hr UD IV 11/21/24 15:45 Vancomycin HCl 250 ml @ 250 mls/hr Q12H IV 11/22/24 08:00 11/23/24 10:53 250 MLS/HR Laboratory Results Laboratory Tests 11/23/24 08:50 Chemistry Test 11/23/24 08:50 Calcium Level 8.8 mg/dL (8.7-10.4) Microbiology Microbiology Date/Time Source Procedure Growth Status 11/21/24 14:30 Foot Left Gram Stain - Final Resulted 11/21/24 14:30 Foot Left Anaerobic Culture - Preliminary Resulted 11/21/24 14:30 Aerobic Culture - Preliminary Streptococcus Group B Resulted 11/20/24 19:30 Blood Blood Culture - Preliminary NO GROWTH AFTER 48 HOURS OF INCUBATION. Resulted Labs and/or images reviewed: Labs reviewed by me Assessment/Plan Assessment/Plan #1 left foot cellulitis/abscess with sepsis s/p I&D #2 uncontrolled dm type 2 #3 non compliance Continuing current management. Continuing with IV antibiotic vancomycin and cefepime. Continuing with sliding scale insulin. Continuing with Lantus. Wound care per procurement engineer recommendation. We will follow up with culture. Continuing with pain medication. Increase Lantus to 20 units sq qhs. Will follow up culture. This medical document was created using an electronic medical record system with [employer] direct computerized dictation system. Although this document has been carefully reviewed, there may still be some phonetic and typographical errors. These areas are purely typographical due to imperfections of the software programs, and do not reflect any compromise in the patient's medical care. Plan discussed with: Patient Date of Service: Nov 23, 2024 Billing Provider: CHANDAN MUIR MD Common Visit Codes: [id number] INP/OBS CARE(HIGH) CHANDAN MUIR MD Nov 23, 2024 13:07
--- NOTE | 2024-11-23 15:49 | DVH ---
ULTRASOUND OF THE PELVIS (NON-OB) FEMALE INDICATION: vaginal bleeding. LMP 10/04/2024. COMPARISON: None TECHNIQUE AND FINDINGS: Transabdominal Ultrasound: Transabdominal ultrasound examination was performed. Endovaginal Ultrasound: Endovaginal ultrasound was declined. UTERUS: The uterus measures 7.6 x 4.6 x 5.5 cm. No focal uterine abnormality is seen. The endometria l stripe is 7 mm in thickness, within normal limits. RIGHT OVARY: The right ovary measures 4.4 x 2.7 x 3.0 cm. The right ovary is normal in appearance wit h expected Doppler flow. There is no evidence of abnormal adnexal mass. LEFT OVARY: The left ovary measures 4.8 x 2.7 x 3.2 cm. The left ovary is normal in appearance with expected Doppler flow. There is a 1.8 x 1.5 x 1.4 cm hypoechoic structure within the left ovary with undulating margins likely representing an involuting follicle. There is no evidence of abnormal adnex al mass. CUL de SAC: No evidence of pelvic free fluid or mass. IMPRESSION: Normal pelvic ultrasound.
[2024-11-23] MEDS: POTASSIUM CHL 20 Meq TABLET PO ONE (17:42)
[2024-11-23 18:30] LABS: Urine Protein, UAD Negative (Negative)
[2024-11-23] MEDS: INSULIN LANTUS (GLARGINE) 1 /0.01ml (100units/ml) SC SCH (21:22)
[2024-11-24] VITALS (7 sets, daily range): BP systolic 114–127; BP diastolic 70–78; PULSE 92–100; RESP 16–20; TEMP 98.2–99.3; O2SAT 96–99
[2024-11-24 06:37] LABS: Hematocrit 29.9 % (36.0-46.0); Hemoglobin 10.3 g/dL (12.2-16.2); Mean Corpuscular Hemoglobin 29.1 pg (28.0-32.0); Mean Corpuscular Volume 84.7 fL (80.0-100.0); Nucleated Red Blood Cells % 0.0 %
[2024-11-24 06:43] LABS: Anion Gap 9 (5-15); Carbon Dioxide 25 mmol/L (20-31); Chloride 100 mmol/L (98-107); Potassium 3.7 mmol/L (3.5-5.1)
[2024-11-24 06:45] LABS: Calcium 9.0 mg/dL (8.7-10.4)
[2024-11-24 06:49] LABS: BUN/Creatinine Ratio 22.2 (10.0-20.0); Blood Urea Nitrogen 12 mg/dL (9-23)
[2024-11-24 07:05] LABS: Glucose 252 mg/dL (74-106); Sodium 134 mmol/L (136-145)
[2024-11-24] MEDS: VANCOMYCIN 750MG KIT 100 ML IV SCH (17:48)
[2024-11-24] MEDS: TEMAZEPAM 15 MG CAP PO PRN (22:20)
[2024-11-24] MEDS: INSULIN LANTUS (GLARGINE) 1 /0.01ml (100units/ml) SC SCH (22:25)
[2024-11-25] VITALS (9 sets, daily range): BP systolic 105–143; BP diastolic 74–85; PULSE 90–105; RESP 16–18; TEMP 98.2–98.5; O2SAT 91–99
--- NOTE | 2024-11-25 05:57 | DVHPN2 ---
Subjective The patient is seen and examined at bedside. The patient complained of leg pain. Blood glucose is not control. Reviewed: Care Plan, H&P, Labs, Medications, Previous Orders, Radiology Changes from previous H/P or p: No Changes Objective Vitals Vital Signs Date Time Temp Pulse Resp B/P (MAP) Pulse Ox O2 Delivery O2 Flow Rate FiO2 11/25/24 05:04 98.2 105 18 105/76 (86) 99 98.2 11/24/24 20:00 Room Air* 0 21 Intake/Output Intake and Output 11/25/24 07:00 Intake Total 3870 ml Balance 3870 ml Intake Oral 2520 ml IV Total 1350 ml # Voids 9 General Appearance: Alert, Oriented X3, Cooperative, No acute distress HEENT: Atraumatic, PERRLA, EOMI, Mucous membr. moist/pink Neck: Supple Lungs: Clear to auscultation, Normal air movement Cardiovascular: Regular rate, Normal S1, Normal S2, No murmurs, Gallops, Rubs Abdomen: Normal bowel sounds, Soft, No tenderness Neuro: Cranial nerves 3-12 NL Psych/Mental Status: Mental status NL Medications Current Medications Medications Dose Ordered Sig/Nadir Route Start Time Stop Time Status Last Admin Dose Admin Cefepime HCl 50 ml @ 12.5 mls/hr Q8HR IV 11/21/24 06:00 11/24/24 22:20 12.5 MLS/HR Acetaminophen/ Hydrocodone Bitart 1 tab Q4HP PRN PO 11/20/24 23:30 11/23/24 23:39 1 TAB Temazepam 15 mg QHSP PRN PO 11/20/24 23:30 11/24/24 22:20 15 MG Ondansetron HCl 4 mg Q4HP PRN IV 11/20/24 23:30 11/21/24 17:21 4 MG Acetaminophen 650 mg Q6HP PRN PO 11/20/24 23:30 11/24/24 20:34 650 MG Morphine Sulfate 2 mg Q6HPRN PRN IV 11/20/24 23:30 11/21/24 17:22 2 MG Sodium Chloride 1,000 ml @ 75 mls/hr [id number] IV 11/21/24 15:45 11/24/24 12:54 75 MLS/HR Diagnostic Test (Pha) 1 strip ACHS 11/21/24 17:00 11/24/24 22:26 1 STRIP Insulin Human Regular AC SC 11/21/24 17:00 11/24/24 17:42 8 UNITS Insulin Human Regular HS SC 11/21/24 22:00 11/24/24 22:26 8 UNITS Dextrose 50 ml UD PRN IV 11/21/24 15:45 Vancomycin HCl 0 ml @ 0 mls/hr UD IV 11/21/24 15:45 Vancomycin HCl 100 ml @ 100 mls/hr Q8H IV 11/24/24 18:00 11/25/24 02:02 100 MLS/HR Insulin Glargine 25 units HS SC 11/24/24 22:00 11/24/24 22:25 25 UNITS Laboratory Results Chemistry Test 11/25/24 05:34 Calcium Level Pending Urinalysis Test 11/23/24 17:55 Urine Color Light-yellow (Yellow) Urine Clarity Clear (Clear) Urine pH 6.0 (5.0-9.0) Urine Specific [place] 1.011 (1.001-1.035) Urine Protein Negative (Negative) Urine Ketones Negative (Negative) Urine Blood 3+ /uL (Negative) H Urine Nitrite Negative (Negative) Urine Bilirubin Negative (Negative) Urine Urobilinogen 2 mg/dL (Negative) H Urine Leukocyte Esterase Negative /uL (Negative) Urine RBC 54 /hpf (0 - 4) Urine Microscopic WBC 1 /HPF (0-5) Urine Squamous Epithelial Cells None seen /hpf (<5) Urine Bacteria None seen /hpf (None Seen) Urine Glucose 4+ mg/dL (Normal) H Microbiology Microbiology Date/Time Source Procedure Growth Status 11/21/24 14:30 Foot Left Gram Stain - Final Complete 11/21/24 14:30 Anaerobic Culture - Final Prevotella bivia Complete 11/21/24 14:30 Aerobic Culture - Final Staphylococcus aureus Streptococcus Group B Complete 11/20/24 19:30 Blood Blood Culture - Preliminary NO GROWTH AFTER 72 HOURS OF INCUBATION. Resulted Labs and/or images reviewed: Labs reviewed by me Assessment/Plan Assessment/Plan #1 left foot cellulitis/abscess with sepsis s/p I&D #2 uncontrolled dm type 2 #3 non compliance Continuing current management. Continuing with IV antibiotic vancomycin and cefepime. Continuing with sliding scale insulin. Continuing with Lantus. Wound care per it technical support specialist recommendation. We will follow up with culture. Continuing with pain medication. Increase Lantus to 25 units sq qhs. Will follow up culture. This medical document was created using an electronic medical record system with [employer] direct computerized dictation system. Although this document has been carefully reviewed, there may still be some phonetic and typographical errors. These areas are purely typographical due to imperfections of the software programs, and do not reflect any compromise in the patient's medical care. Plan discussed with: Patient My Orders Orders - CHANDAN MUIR MD Procedure Category Date Status Time Insulin Lantus PHA 11/24/24 In Process (Glargine) (Lantus) 22:00 Date of Service: Nov 24, 2024 Billing Provider: CHANDAN MUIR MD Common Visit Codes: [id number] INP/OBS CARE(HIGH) CHANDAN MUIR MD Nov 25, 2024 05:57
[2024-11-25 06:10] LABS: Hematocrit 27.2 % (36.0-46.0); Hemoglobin 9.5 g/dL (12.2-16.2); Mean Corpuscular Hemoglobin 29.1 pg (28.0-32.0); Mean Corpuscular Volume 83.2 fL (80.0-100.0); Nucleated Red Blood Cells % 0.0 %
[2024-11-25 06:17] LABS: Anion Gap 8 (5-15); Carbon Dioxide 26 mmol/L (20-31); Chloride 103 mmol/L (98-107); Sodium 137 mmol/L (136-145)
[2024-11-25 06:18] LABS: Calcium 8.9 mg/dL (8.7-10.4)
[2024-11-25 06:22] LABS: Potassium 3.5 mmol/L (3.5-5.1)
[2024-11-25 06:23] LABS: BUN/Creatinine Ratio 13.5 (10.0-20.0)
[2024-11-25 06:27] LABS: Blood Urea Nitrogen 7 mg/dL (9-23); Glucose 183 mg/dL (74-106)
--- NOTE | 2024-11-25 08:46 | MEDREC ---
[facility] Intervention Section I [facility] Intervention: Deescalate AB based on CS (PLEASE CONSIDER DE-ESCALATION BASED ON CULTURE RESULTS AND SWITCH TO UNASYN (AMPICILLIN-SULBACTAM) TO COVER STAPHYLOCOCCUS AUREUS, STREPTOCOCCUS GROUP B, AND PREVOTELLA SPECIES ) DEVONTE SMITH PHARMACIST Nov 25, 2024 08:46
--- NOTE | 2024-11-25 10:55 | DVHPN2 ---
Progress Note Date Seen: Nov 25, 2024 Medical Necessity Reason Pt with a Central, PICC or Fol: No Subjective Patient reports: No new complaints Review of Systems: HEENT:Normal, CVS:Normal, RESPIRATORY:Normal, GI:Normal, :Normal, MSK:Normal, NEURO:Normal Objective vital signs Vital Sign Date Time Temp Pulse Resp B/P (MAP) Pulse Ox O2 Delivery O2 Flow Rate FiO2 11/25/24 09:00 98.5 100 16 143/84 (103) 95 98.5 11/24/24 20:00 Room Air* 0 21 Total Intake and Output 11/24/24 11/24/24 11/25/24 15:00 23:00 07:00 Intake Total 540 ml 1940 ml 1390 ml Balance 540 ml 1940 ml 1390 ml medications Current Medications Medications Dose Ordered Sig/Nadir Route Start Time Stop Time Status Last Admin Dose Admin Cefepime HCl 50 ml @ 12.5 mls/hr Q8HR IV 11/21/24 06:00 11/25/24 06:04 12.5 MLS/HR Acetaminophen/ Hydrocodone Bitart 1 tab Q4HP PRN PO 11/20/24 23:30 11/23/24 23:39 1 TAB Temazepam 15 mg QHSP PRN PO 11/20/24 23:30 11/24/24 22:20 15 MG Ondansetron HCl 4 mg Q4HP PRN IV 11/20/24 23:30 11/21/24 17:21 4 MG Acetaminophen 650 mg Q6HP PRN PO 11/20/24 23:30 11/24/24 20:34 650 MG Morphine Sulfate 2 mg Q6HPRN PRN IV 11/20/24 23:30 11/21/24 17:22 2 MG Sodium Chloride 1,000 ml @ 75 mls/hr [id number] IV 11/21/24 15:45 11/24/24 12:54 75 MLS/HR Diagnostic Test (Pha) 1 strip ACHS 11/21/24 17:00 11/25/24 06:04 1 STRIP Insulin Human Regular AC SC 11/21/24 17:00 11/24/24 17:42 8 UNITS Insulin Human Regular HS SC 11/21/24 22:00 11/24/24 22:26 8 UNITS Dextrose 50 ml UD PRN IV 11/21/24 15:45 Vancomycin HCl 0 ml @ 0 mls/hr UD IV 11/21/24 15:45 Vancomycin HCl 100 ml @ 100 mls/hr Q8H IV 11/24/24 18:00 11/25/24 09:00 100 MLS/HR Insulin Glargine 25 units HS SC 11/24/24 22:00 11/24/24 22:25 25 UNITS Examination: GENERAL:Normal, HEENT:Normal, NECK:Normal, LUNGS:Normal, CVS:Normal, ABDOMEN:Normal, MSK:Normal, MSK:Abnormal (left foot dressing), SKIN:Normal, NEURO:Normal, :Normal laboratory and microbiology Laboratory Tests 11/25/24 05:34 Test 11/25/24 05:34 Range/Units Serum Glucose 183 H 74-106 mg/dL Microbiology Date/Time Source Procedure Growth Status 11/21/24 14:30 Foot Left Gram Stain - Final Complete 11/21/24 14:30 Anaerobic Culture - Final Prevotella bivia Complete 11/21/24 14:30 Aerobic Culture - Final Staphylococcus aureus Streptococcus Group B Complete 11/20/24 19:30 Blood Blood Culture - Preliminary NO GROWTH AFTER 72 HOURS OF INCUBATION. Resulted Problem List/Assessment/Plan Problem List/Assessment/Plan #1 left foot cellulitis/abscess with sepsis s/p surg: iv antibiotics, ivf, repeat surg today #2 uncontrolled dm: lantus, ssi #3 non compliance Plan discussed with: Patient My Orders My Orders Orders - ABILIO LIU MD Procedure Category Date Status Time Vancomycin 750mg Kit PHA 11/24/24 In Process (Vancomycin Hcl) 18:00 Vancomycin,Trough LAB 11/25/24 Logged 17:00 Vancomycin Per PA 11/24/24 In Process Pharmacy Protoc 14:35 Basic Metabolic Panel LAB 11/26/24 Verified 06:00 Complete Blood Count LAB 11/26/24 Verified 06:00 Dietary Evaluation Review Comments: Nutrition Recommendation: 1) Khanh 1 pk BID 2) CCHO 75gm diet 3) Refer Dry Cleaning Supervisor for diabetes education Expected Outcomes/Goals: Wound to improve Lab values to improve Fu 3-5 days Date of Service: Nov 25, 2024 Billing Provider: ABILIO LIU MD Common Visit Codes: [id number] INP/OBS CARE(HIGH) ABILIO LIU MD Nov 25, 2024 10:55
--- NOTE | 2024-11-25 11:49 | DVHPN2 ---
Subjective 28-year-old female presents for evaluation of left foot wound. Patient reports developing a wound three weeks ago when she was picking at a callus on her left foot. She states three days ago she noticed some purulent discharge and foul smell from the wound. She has been having fever since yesterday. No other acute complaints reported. Reviewed: Care Plan, H&P, Labs, Medications, Previous Orders, Radiology Changes from previous H/P or p: No Changes Objective Vitals Vital Signs Date Time Temp Pulse Resp B/P (MAP) Pulse Ox O2 Delivery O2 Flow Rate FiO2 11/25/24 09:00 98.5 100 16 143/84 (103) 95 98.5 11/25/24 08:00 Room Air* 0 21 Intake/Output Intake and Output 11/25/24 07:00 Intake Total 3870 ml Balance 3870 ml Intake Oral 2520 ml IV Total 1350 ml # Voids 9 General Appearance: Alert, Oriented X3, Cooperative, No acute distress HEENT: Atraumatic, PERRLA, EOMI, Mucous membr. moist/pink Neck: Supple Lungs: Clear to auscultation, Normal air movement Cardiovascular: Regular rate, Normal S1, Normal S2, No murmurs, Gallops, Rubs Abdomen: Normal bowel sounds, Soft, No tenderness Neuro: Cranial nerves 3-12 NL Psych/Mental Status: Mental status NL Medications Current Medications Medications Dose Ordered Sig/Nadir Route Start Time Stop Time Status Last Admin Dose Admin Cefepime HCl 50 ml @ 12.5 mls/hr Q8HR IV 11/21/24 06:00 11/25/24 06:04 12.5 MLS/HR Acetaminophen/ Hydrocodone Bitart 1 tab Q4HP PRN PO 11/20/24 23:30 11/23/24 23:39 1 TAB Temazepam 15 mg QHSP PRN PO 11/20/24 23:30 11/24/24 22:20 15 MG Ondansetron HCl 4 mg Q4HP PRN IV 11/20/24 23:30 11/21/24 17:21 4 MG Acetaminophen 650 mg Q6HP PRN PO 11/20/24 23:30 11/24/24 20:34 650 MG Morphine Sulfate 2 mg Q6HPRN PRN IV 11/20/24 23:30 11/21/24 17:22 2 MG Sodium Chloride 1,000 ml @ 75 mls/hr [id number] IV 11/21/24 15:45 11/24/24 12:54 75 MLS/HR Diagnostic Test (Pha) 1 strip ACHS 11/21/24 17:00 11/25/24 11:11 1 STRIP Insulin Human Regular AC SC 11/21/24 17:00 11/25/24 11:10 8 UNITS Insulin Human Regular HS SC 11/21/24 22:00 11/24/24 22:26 8 UNITS Dextrose 50 ml UD PRN IV 11/21/24 15:45 Vancomycin HCl 0 ml @ 0 mls/hr UD IV 11/21/24 15:45 Vancomycin HCl 100 ml @ 100 mls/hr Q8H IV 11/24/24 18:00 11/25/24 09:00 100 MLS/HR Insulin Glargine 25 units HS SC 11/24/24 22:00 11/24/24 22:25 25 UNITS Laboratory Results Laboratory Tests 11/25/24 05:34 Chemistry Test 11/25/24 05:34 Calcium Level 8.9 mg/dL (8.7-10.4) Urinalysis Test 11/23/24 17:55 Urine Color Light-yellow (Yellow) Urine Clarity Clear (Clear) Urine pH 6.0 (5.0-9.0) Urine Specific [place] 1.011 (1.001-1.035) Urine Protein Negative (Negative) Urine Ketones Negative (Negative) Urine Blood 3+ /uL (Negative) H Urine Nitrite Negative (Negative) Urine Bilirubin Negative (Negative) Urine Urobilinogen 2 mg/dL (Negative) H Urine Leukocyte Esterase Negative /uL (Negative) Urine RBC 54 /hpf (0 - 4) Urine Microscopic WBC 1 /HPF (0-5) Urine Squamous Epithelial Cells None seen /hpf (<5) Urine Bacteria None seen /hpf (None Seen) Urine Glucose 4+ mg/dL (Normal) H Microbiology Microbiology Date/Time Source Procedure Growth Status 11/21/24 14:30 Foot Left Gram Stain - Final Complete 11/21/24 14:30 Anaerobic Culture - Final Prevotella bivia Complete 11/21/24 14:30 Aerobic Culture - Final Staphylococcus aureus Streptococcus Group B Complete 11/20/24 19:30 Blood Blood Culture - Preliminary NO GROWTH AFTER 72 HOURS OF INCUBATION. Resulted Assessment/Plan Assessment/Plan ASSESSMENT: Patient is a 28 year old seen on the floor follow up s/p foot I&D PLAN: - The patients chart was reviewed, clinical findings were discussed with the patient, the etiologies of the conditions were discussed in detail, and a treatment plan was agreed to at this time, with both oral and written instructions provided. - reviewed advanced imaging - reviewed all of the labs and pathology - discussed plan is to perform a subsequent incision and drainage - patient has been NPO since midnight - take her to the OR today - it was determined that multiple I&Ds will be necessary to save the limb - evaluted patients both feet and there is excessive dryness and onychomycosis that patient would benefit from routine foot care as an outpatient - can weightbear as tolerated in postoperative shoe All questions were answered and concerns addressed to the patient's satisfaction. The patient was given the phone number to the clinic and was told how to make contact with the clinic should any concerns or questions arise. Patient understands that if any questions or concerns arise prior to the next appointment, we should be contacted immediately. FOLLOW-UP: Continue to follow while inpatient Plan discussed with: Patient My Orders Orders - DAISY JACKSON DPM Procedure Category Date Status Time Obtain Consent For: ORDERS 11/24/24 Transmitted 12:34 Npo (Nothing By DIET 11/25/24 Transmitted Mouth) Diet Breakfast Problem List: (1) Cellulitis of left foot (2) Diabetic ulcer of left foot Visit Coding Podiatry Date of Service if different f: Nov 25, 2024 Billing Provider: DAISY JACKSON DPM Podiatry Common Visit Codes: [id number] INP/OBS CARE(HIGH) DAISY JACKSON DPM Nov 25, 2024 11:48
[2024-11-25] MEDS ORDERED: LIDOCAINE 1% INJ PF 5ML AMP ONE (12:22)
[2024-11-25] MEDS ORDERED: ONDANSETRON HCL 4 MG/2 ML VIAL ONE (12:22)
[2024-11-25] MEDS ORDERED: KETOROLAC TROMETH 30 MG/ML 1ML VIAL ONE (12:22)
[2024-11-25] MEDS ORDERED: GLYCOPYRROLATE 0.2 MG/ML 1ML VIAL ONE (12:22)
[2024-11-25] MEDS ORDERED: PROPOFOL 10 MG/ML 20 ML IV ONE (12:22)
[2024-11-25] MEDS: VANCOMYCIN HCL 1000 MG VL ONE (12:34)
--- NOTE | 2024-11-25 12:43 | DVHOP2 ---
Operative Report - 2 Report Details Date: 11/25/24 Preop Diagnosis: 1. Left foot abscess 2. Left foot necrotizing fasciitis 3. Left foot cellulitis 4. Left foot diabetic ulcer Postop Diagnosis: Same as preop Surgeon: Daisy Jackson MD Anesthesiologist: None Anesthesia: Local Consent: The patient was informed of the risks and benefits of the procedure. These include but are not limited to complications of anesthesia, postoperative infection, incomplete relief of symptoms, recurrence of symptoms, damage to blood vessels, nerves and tendons, deep venous thrombosis, pulmonary embolism and possible need for repeat surgery in the future. Complications: None Estimated Blood Loss: Minimal Fluids: See anesthesia Findings: Consistent with diagnosis Indications for Surgery: Worsening left foot wound Name of Procedure Performed 1. Left foot I&D to abscess (07172) Procedure Details Procedure Details: PRE-PROCEDURE INFORMATION: In the pre-op holding area, the extremity to be operated on was clearly marked and the patient verified correct laterality of the marking. The patient was transferred to the OR table and placed in a supine position. A timeout was performed in which identification of the correct patient, procedure, location, and materials was done. The left foot and leg were prepped and draped in normal sterile fashion. DESCRIPTION OF PROCEDURE: Attention was directed to the left dorsal and plantar foot where previous incision was made. An incision was made dorsally and plantarly over this area and was deepened through blunt dissection. The incision was deepened to the level of abscess and bone. Care was taken to the dissection to avoid any neurovascular and tendinous structures. The incision was deepened to the level of the abscess which appeared to be purulent fluid consistent with pus. All of the necrotic tissue was then removed at that point. After the abscess was drained, the area was irrigated with 3 L normal saline using cysto tubing. The area was then inspected and any areas of tracking, especially along the tendons were also drained. The wound was packed with Betadine-soaked gauze and we will need to be closed at a later date. POSTOPERATIVE INFORMATION: The patient tolerated the above noted procedure and anesthesia well and was transferred to the PACU with vital signs stable, and vascular status intact with capillary refill intact to all digits. Continue IV antibiotics. Patient will need another incision and drainage on Monday due to significant purulent drainage still present in the wound. Condition Good Disposition Still a Patient Visit Coding Podiatry Date of Service if different f: Nov 25, 2024 Billing Provider: DAISY JACKSON DPM Podiatry Common Visit Codes: PROCEDURE ONLY DAISY JACKSON DPM Nov 25, 2024 12:43
[2024-11-25] MEDS: BUPIVACAINE 0.5% P/F INJ 10 ML VIAL ONE (12:48)
[2024-11-25] MEDS ORDERED: FLUMAZENIL 0.1 MG/ML INJ 10ML MDV IV PRN (13:00)
[2024-11-25] MEDS ORDERED: hydrALAZINE HCL 20 MG/ML VL IV PRN (13:00)
[2024-11-25] MEDS ORDERED: fentaNYL CITRATE 100 MCG/2 ML VL IV PRN (13:00)
[2024-11-25] MEDS ORDERED: HYDROmorphone HCL 2 MG/ML VL/or syr IV PRN (13:00)
[2024-11-25] MEDS ORDERED: ONDANSETRON HCL 4 MG/2 ML VIAL IV PRN (13:00)
[2024-11-25] MEDS ORDERED: NALOXONE HCL 0.4 MG/ML VIAL IV PRN (13:00)
[2024-11-25] MEDS ORDERED: DEXTROSE (50%) 50ML SYRG IV PRN (21:30)
[2024-11-26] VITALS (7 sets, daily range): BP systolic 119–128; BP diastolic 71–81; PULSE 68–96; RESP 17–100; TEMP 97.6–98.3; O2SAT 95–100
[2024-11-26] MEDS: VANCOMYCIN 1GM/250ML KIT 250 ML IV SCH
[2024-11-26] MEDS: ACCU-CHEK COMFORT CURVE STRIP VI SCH (00:05)
[2024-11-26] MEDS: InsuLIN REG 1unit/0.01ml Soln (100units/ml) SC SCH ×2 (00:05→17:25)
[2024-11-26 06:24] LABS: Chloride 100 mmol/L (98-107)
[2024-11-26 06:25] LABS: Anion Gap 11 (5-15); Calcium 8.8 mg/dL (8.7-10.4); Carbon Dioxide 25 mmol/L (20-31)
[2024-11-26 06:26] LABS: Potassium 3.4 mmol/L (3.5-5.1); Sodium 136 mmol/L (136-145)
[2024-11-26 06:30] LABS: BUN/Creatinine Ratio 24.5 (10.0-20.0); Blood Urea Nitrogen 13 mg/dL (9-23)
[2024-11-26 06:31] LABS: Glucose 226 mg/dL (74-106)
[2024-11-26 06:36] LABS: Hematocrit 27.4 % (36.0-46.0); Hemoglobin 9.3 g/dL (12.2-16.2); Mean Corpuscular Hemoglobin 28.4 pg (28.0-32.0); Mean Corpuscular Volume 84.0 fL (80.0-100.0)
[2024-11-26 07:21] LABS: Total Cells Counted 100.0 (100)
--- NOTE | 2024-11-26 11:16 | DVHPN2 ---
Progress Note Date Seen: Nov 26, 2024 Medical Necessity Reason Pt with a Central, PICC or Fol: No Subjective Patient reports: No new complaints Review of Systems: HEENT:Normal, CVS:Normal, RESPIRATORY:Normal, GI:Normal, :Normal, MSK:Normal, NEURO:Normal Objective vital signs Vital Sign Date Time Temp Pulse Resp B/P (MAP) Pulse Ox O2 Delivery O2 Flow Rate FiO2 11/26/24 09:00 98.0 68 17 123/81 (95) 96 98.0 11/26/24 08:00 Room Air* 0 21 Total Intake and Output 11/25/24 11/25/24 11/26/24 15:00 23:00 07:00 Intake Total 490 ml 850 ml 1900 ml Balance 490 ml 850 ml 1900 ml medications Current Medications Medications Dose Ordered Sig/Nadir Route Start Time Stop Time Status Last Admin Dose Admin Cefepime HCl 50 ml @ 12.5 mls/hr Q8HR IV 11/21/24 06:00 11/26/24 05:48 12.5 MLS/HR Acetaminophen/ Hydrocodone Bitart 1 tab Q4HP PRN PO 11/20/24 23:30 11/23/24 23:39 1 TAB Temazepam 15 mg QHSP PRN PO 11/20/24 23:30 11/24/24 22:20 15 MG Ondansetron HCl 4 mg Q4HP PRN IV 11/20/24 23:30 11/21/24 17:21 4 MG Acetaminophen 650 mg Q6HP PRN PO 11/20/24 23:30 11/26/24 07:44 650 MG Morphine Sulfate 2 mg Q6HPRN PRN IV 11/20/24 23:30 11/21/24 17:22 2 MG Sodium Chloride 1,000 ml @ 75 mls/hr [id number] IV 11/21/24 15:45 11/26/24 04:29 75 MLS/HR Insulin Human Regular AC SC 11/21/24 17:00 11/25/24 17:38 20 UNITS Insulin Human Regular HS SC 11/21/24 22:00 11/25/24 21:33 10 UNITS Dextrose 50 ml UD PRN IV 11/21/24 15:45 Vancomycin HCl 0 ml @ 0 mls/hr UD IV 11/21/24 15:45 Insulin Glargine 25 units HS SC 11/24/24 22:00 11/25/24 21:34 25 UNITS Vancomycin HCl 250 ml @ 250 mls/hr Q8HR@0000,0800,1600 IV 11/26/24 00:00 11/26/24 08:47 250 MLS/HR Diagnostic Test (Pha) 1 strip IQ4HR 11/26/24 00:00 11/26/24 07:51 1 STRIP Insulin Human Regular IQ4HR SC 11/26/24 00:00 11/26/24 07:53 3 UNITS Dextrose 50 ml UD PRN IV 11/25/24 21:30 Examination: GENERAL:Normal, HEENT:Normal, NECK:Normal, LUNGS:Normal, CVS:Normal, ABDOMEN:Normal, MSK:Normal, MSK:Abnormal (left foot dressing), SKIN:Normal, NEURO:Normal, :Normal laboratory and microbiology Laboratory Tests 11/26/24 05:26 Test 11/26/24 05:26 Range/Units Serum Glucose 226 H 74-106 mg/dL Microbiology Date/Time Source Procedure Growth Status 11/21/24 14:30 Foot Left Gram Stain - Final Complete 11/21/24 14:30 Anaerobic Culture - Final Prevotella bivia Complete 11/21/24 14:30 Aerobic Culture - Final Staphylococcus aureus Streptococcus Group B Complete 11/20/24 19:30 Blood Blood Culture - Final NO GROWTH AFTER 5 DAYS OF INCUBATION. Complete Problem List/Assessment/Plan Problem List/Assessment/Plan #1 left foot cellulitis/abscess with sepsis s/p surg: iv antibiotics, ivf, s/p repeat surg, likely repeat surg in am #2 uncontrolled dm: increase lantus, ssi #3 non compliance Plan discussed with: Patient My Orders My Orders Orders - ABILIO LIU MD Procedure Category Date Status Time Vancomycin 1gm/250ml PHA 11/26/24 In Process Kit 00:00 Vancomycin,Trough LAB 11/26/24 Logged 15:00 Vancomycin Per PA 11/25/24 In Process Pharmacy Protoc 20:00 Insulin Lantus PHA 11/26/24 Transmitted (Glargine) (Lantus) 22:00 Potassium Er Tablet PHA 11/26/24 Verified (Klor-Con Tablet) 11:15 Basic Metabolic Panel LAB 11/27/24 Verified 06:00 Complete Blood Count LAB 11/27/24 Verified 06:00 Magnesium LAB 11/27/24 Verified 05:00 PTPTT LAB 11/27/24 Verified 04:00 Dietary Evaluation Review Comments: Nutrition Recommendation: 1) Khanh 1 pk BID 2) CCHO 75gm diet 3) Refer Rubber Covering Machine Operator for diabetes education Expected Outcomes/Goals: Wound to improve Lab values to improve Fu 3-5 days Date of Service: Nov 26, 2024 Billing Provider: ABILIO LIU MD Common Visit Codes: [id number] INP/OBS CARE(HIGH) ABILIO LIU MD Nov 26, 2024 11:16
[2024-11-26] MEDS: POTASSIUM CHL 20 Meq TABLET PO ONE (14:55)
[2024-11-26] MEDS ORDERED: MORPHINE SULFATE 4 MG/ML SYR/VIAL IV PRN ×2 (16:30)
[2024-11-26] MEDS: VANCOMYCIN 1.25GM/250ML 250 ML IV SCH (18:20)
[2024-11-26] MEDS: INSULIN LANTUS (GLARGINE) 1 /0.01ml (100units/ml) SC SCH (21:23)
[2024-11-27] VITALS (9 sets, daily range): BP systolic 125–150; BP diastolic 8–96; PULSE 77–105; RESP 10–20; TEMP 97.7–98.4; O2SAT 92–100
[2024-11-27 05:56] LABS: Chloride 106 mmol/L (98-107); Potassium 3.9 mmol/L (3.5-5.1); Sodium 142 mmol/L (136-145)
[2024-11-27 05:57] LABS: Anion Gap 11 (5-15); Calcium 8.8 mg/dL (8.7-10.4); Carbon Dioxide 25 mmol/L (20-31)
[2024-11-27 06:02] LABS: BUN/Creatinine Ratio 17.8 (10.0-20.0)
[2024-11-27 06:03] LABS: Magnesium 1.9 mg/dL (1.6-2.6)
[2024-11-27 06:08] LABS: Blood Urea Nitrogen 8 mg/dL (9-23); Glucose 124 mg/dL (74-106)
[2024-11-27 06:17] LABS: Prothrombin Time 10.6 sec (9.3-11.8)
[2024-11-27 06:18] LABS: INR 1.0 (0.9-1.15); Partial Thromboplastin Time 28.5 SEC (24.5-34.5)
[2024-11-27 08:45] LABS: Hematocrit 25.3 % (36.0-46.0); Hemoglobin 8.9 g/dL (12.2-16.2); Mean Corpuscular Hemoglobin 29.1 pg (28.0-32.0); Mean Corpuscular Volume 83.1 fL (80.0-100.0)
--- NOTE | 2024-11-27 10:49 | DVHPN2 ---
Progress Note Date Seen: Nov 27, 2024 Medical Necessity Reason Pt with a Central, PICC or Fol: No Subjective Patient reports: No new complaints Review of Systems: HEENT:Normal, CVS:Normal, RESPIRATORY:Normal, GI:Normal, :Normal, MSK:Normal, NEURO:Normal Objective vital signs Vital Sign Date Time Temp Pulse Resp B/P (MAP) Pulse Ox O2 Delivery O2 Flow Rate FiO2 11/27/24 09:00 97.8 105 20 135/85 (102) 98 97.8 11/26/24 20:00 Room Air* 0 21 Total Intake and Output 11/26/24 11/26/24 11/27/24 15:00 23:00 07:00 Intake Total 300 ml 1190 ml 1800 ml Balance 300 ml 1190 ml 1800 ml medications Current Medications Medications Dose Ordered Sig/Nadir Route Start Time Stop Time Status Last Admin Dose Admin Cefepime HCl 50 ml @ 12.5 mls/hr Q8HR IV 11/21/24 06:00 11/27/24 05:38 12.5 MLS/HR Acetaminophen/ Hydrocodone Bitart 1 tab Q4HP PRN PO 11/20/24 23:30 11/23/24 23:39 1 TAB Temazepam 15 mg QHSP PRN PO 11/20/24 23:30 11/24/24 22:20 15 MG Ondansetron HCl 4 mg Q4HP PRN IV 11/20/24 23:30 11/21/24 17:21 4 MG Acetaminophen 650 mg Q6HP PRN PO 11/20/24 23:30 11/27/24 00:04 650 MG Sodium Chloride 1,000 ml @ 75 mls/hr [id number] IV 11/21/24 15:45 11/27/24 05:42 75 MLS/HR Dextrose 50 ml UD PRN IV 11/21/24 15:45 Vancomycin HCl 0 ml @ 0 mls/hr UD IV 11/21/24 15:45 Insulin Glargine 30 units HS SC 11/26/24 22:00 11/26/24 21:23 30 UNITS Insulin Human Regular Q6HR SC 11/26/24 18:00 11/27/24 00:02 2 UNITS Morphine Sulfate 2 mg Q6HPRN PRN IV 11/26/24 16:30 Vancomycin HCl 250 ml @ 200 mls/hr Q8H IV 11/26/24 19:00 11/27/24 10:27 200 MLS/HR Examination: GENERAL:Normal, HEENT:Normal, NECK:Normal, LUNGS:Normal, CVS:Normal, ABDOMEN:Normal, MSK:Normal, MSK:Abnormal (left foot dressing), SKIN:Normal, NEURO:Normal, :Normal laboratory and microbiology Laboratory Tests 11/27/24 07:47 11/27/24 05:12 Test 11/27/24 05:12 Range/Units Serum Glucose 124 H 74-106 mg/dL Microbiology Date/Time Source Procedure Growth Status 11/21/24 14:30 Foot Left Gram Stain - Final Complete 11/21/24 14:30 Anaerobic Culture - Final Prevotella bivia Complete 11/21/24 14:30 Aerobic Culture - Final Staphylococcus aureus Streptococcus Group B Complete 11/20/24 19:30 Blood Blood Culture - Final NO GROWTH AFTER 5 DAYS OF INCUBATION. Complete Problem List/Assessment/Plan Problem List/Assessment/Plan #1 left foot cellulitis/abscess with sepsis s/p surg: iv antibiotics, ivf, s/p repeat surg, surg today #2 uncontrolled dm: increase lantus, ssi #3 non compliance #4 anemia Plan discussed with: Patient My Orders My Orders Orders - ABILIO LIU MD Procedure Category Date Status Time Insulin Lantus PHA 11/26/24 In Process (Glargine) (Lantus) 22:00 Complete Blood Count LAB 11/27/24 In Process 06:00 Insulin R (Human) PHA 11/26/24 In Process (Insulin R) 18:00 Morphine Sulfate PHA 11/26/24 In Process Injection 16:30 Vancomycin PHA 11/26/24 In Process 1.25gm/250ml 19:00 Vancomycin,Trough LAB 11/27/24 Logged 18:00 Vancomycin Per PA 11/26/24 In Process Pharmacy Protoc 19:00 Manual Differential LAB 11/27/24 In Process 07:47 Creatinine LAB 11/28/24 Verified 04:00 Basic Metabolic Panel LAB 11/28/24 Verified 06:00 Complete Blood Count LAB 11/28/24 Verified 06:00 Dietary Evaluation Review Comments: Nutrition Recommendation: 1) Khanh 1 pk BID 2) CCHO 75gm diet 3) Refer Courtesy Clerk for diabetes education Expected Outcomes/Goals: Wound to improve Lab values to improve Fu 3-5 days Date of Service: Nov 27, 2024 Billing Provider: ABILIO LIU MD Common Visit Codes: [id number] INP/OBS CARE(HIGH) ABILIO LIU MD Nov 27, 2024 10:49
[2024-11-27 11:05] LABS: Total Cells Counted 100.0 (100)
[2024-11-27] MEDS ORDERED: fentaNYL CITRATE 100 MCG/2 ML VL ONE (13:28)
[2024-11-27] MEDS ORDERED: HYDROmorphone HCL 2 MG/ML VL/or syr ONE (13:34)
[2024-11-27] MEDS: BUPIVACAINE 0.5% P/F INJ 10 ML VIAL ONE (13:50)
[2024-11-27] MEDS ORDERED: ONDANSETRON HCL 4 MG/2 ML VIAL ONE (13:56)
--- NOTE | 2024-11-27 14:08 | DVHOP2 ---
Operative Report - 2 Report Details Date: 11/27/24 Preop Diagnosis: 1. Left foot abscess 2. Left foot necrotizing fasciitis 3. Left foot cellulitis 4. Left foot diabetic ulcer Postop Diagnosis: Same as preop Surgeon: Daisy Jackson MD Anesthesiologist: None Anesthesia: Local Consent: The patient was informed of the risks and benefits of the procedure. These include but are not limited to complications of anesthesia, postoperative infection, incomplete relief of symptoms, recurrence of symptoms, damage to blood vessels, nerves and tendons, deep venous thrombosis, pulmonary embolism and possible need for repeat surgery in the future. Complications: None Estimated Blood Loss: Minimal Fluids: See anesthesia Findings: Consistent with diagnosis Indications for Surgery: Worsening left foot wound Name of Procedure Performed 1. Left foot I&D to abscess ([id number]) Procedure Details Procedure Details: PRE-PROCEDURE INFORMATION: In the pre-op holding area, the extremity to be operated on was clearly marked and the patient verified correct laterality of the marking. The patient was transferred to the OR table and placed in a supine position. A timeout was performed in which identification of the correct patient, procedure, location, and materials was done. The left foot and leg were prepped and draped in normal sterile fashion. DESCRIPTION OF PROCEDURE: Attention was directed to the left dorsal and plantar foot where previous incision was made. An incision was made dorsally and plantarly over this area and was deepened through blunt dissection. The incision was deepened to the level of abscess and bone. Care was taken to the dissection to avoid any neurovascular and tendinous structures. The incision was deepened to the level of the abscess which appeared to be purulent fluid consistent with pus. All of the necrotic tissue was then removed at that point. After the abscess was drained, the area was irrigated with 3 L normal saline using cysto tubing. The area was then inspected and any areas of tracking, especially along the tendons were also drained. The wound was packed with Betadine-soaked gauze and we will need to be closed at a later date. POSTOPERATIVE INFORMATION: The patient tolerated the above noted procedure and anesthesia well and was transferred to the PACU with vital signs stable, and vascular status intact with capillary refill intact to all digits. Continue IV antibiotics. Recommend placement of PICC line 6 weeks IV antibiotics. Recommend wound VAC to the left foot a significant tissue loss. Condition Good Disposition Still a Patient Visit Coding Podiatry Date of Service if different f: Nov 27, 2024 Billing Provider: DAISY JACKSON DPM Podiatry Common Visit Codes: PROCEDURE ONLY DAISY JACKSON DPM Nov 27, 2024 14:07
[2024-11-27] MEDS ORDERED: HYDROmorphone HCL 2 MG/ML VL/or syr IV PRN (14:15)
[2024-11-27] MEDS ORDERED: ONDANSETRON HCL 4 MG/2 ML VIAL IV PRN (14:15)
[2024-11-27] MEDS ORDERED: ACETAMINOPHEN IV 1000 MG/100ML (10MG/ML) IV PRN (14:15)
[2024-11-27] MEDS: LIDOCAINE 1% (LOCAL ANESTH.) PF 5ml SDV ID ONE (18:10)
[2024-11-27] MEDS: VANCOMYCIN 1.25GM/250ML 250 ML IV SCH (20:09)
[2024-11-27] MEDS: SODIUM CHLOR 0.9% PF (SALINE LOCK) 10ML VIAL/SYR IV SCH (22:24)
[2024-11-27] MEDS ORDERED: DEXTROSE (50%) 50ML SYRG IV PRN (23:30)
[2024-11-28] VITALS (8 sets, daily range): BP systolic 116–134; BP diastolic 75–82; PULSE 90–98; RESP 14–17; TEMP 98.2–98.9; O2SAT 96–99
[2024-11-28] MEDS ORDERED: InsuLIN REG 1unit/0.01ml Soln (100units/ml) SC SCH
[2024-11-28] MEDS: ACCU-CHEK COMFORT CURVE STRIP VI SCH (00:13)
[2024-11-28] MEDS: VANCOMYCIN 1.25GM/250ML 250 ML IV SCH ×2 (06:01→13:58)
[2024-11-28 06:13] LABS: Hemoglobin 9.9 g/dL (12.2-16.2)
[2024-11-28 06:16] LABS: Hematocrit 27.9 % (36.0-46.0); Mean Corpuscular Hemoglobin 29.4 pg (28.0-32.0); Mean Corpuscular Volume 82.8 fL (80.0-100.0)
[2024-11-28 06:20] LABS: Anion Gap 10 (5-15); Carbon Dioxide 28 mmol/L (20-31); Chloride 102 mmol/L (98-107); Potassium 3.7 mmol/L (3.5-5.1); Sodium 140 mmol/L (136-145)
[2024-11-28 06:22] LABS: Calcium 8.7 mg/dL (8.7-10.4)
[2024-11-28 06:26] LABS: BUN/Creatinine Ratio 22.2 (10.0-20.0); Blood Urea Nitrogen 10 mg/dL (9-23); Glucose 87 mg/dL (74-106)
[2024-11-28 06:56] LABS: Total Cells Counted 100.0 (100)
--- NOTE | 2024-11-28 10:38 | DVHPN2 ---
Progress Note Date Seen: Nov 28, 2024 Medical Necessity Reason Pt with a Central, PICC or Fol: No Subjective Patient reports: No new complaints Review of Systems: HEENT:Normal, CVS:Normal, RESPIRATORY:Normal, GI:Normal, :Normal, MSK:Normal, NEURO:Normal Objective vital signs Vital Sign Date Time Temp Pulse Resp B/P (MAP) Pulse Ox O2 Delivery O2 Flow Rate FiO2 11/28/24 09:46 98.6 92 16 121/81 (94) 98 98.6 11/27/24 20:00 Room Air* 0 21 Total Intake and Output 11/27/24 11/27/24 11/28/24 15:00 23:00 07:00 Intake Total 400 ml 900 ml 850 ml Balance 400 ml 900 ml 850 ml medications Current Medications Medications Dose Ordered Sig/Nadir Route Start Time Stop Time Status Last Admin Dose Admin Cefepime HCl 50 ml @ 12.5 mls/hr Q8HR IV 11/21/24 06:00 11/28/24 06:52 12.5 MLS/HR Acetaminophen/ Hydrocodone Bitart 1 tab Q4HP PRN PO 11/20/24 23:30 11/23/24 23:39 1 TAB Ondansetron HCl 4 mg Q4HP PRN IV 11/20/24 23:30 11/27/24 15:32 4 MG Acetaminophen 650 mg Q6HP PRN PO 11/20/24 23:30 11/27/24 00:04 650 MG Sodium Chloride 1,000 ml @ 75 mls/hr [id number] IV 11/21/24 15:45 11/27/24 05:42 75 MLS/HR Vancomycin HCl 0 ml @ 0 mls/hr UD IV 11/21/24 15:45 Insulin Glargine 30 units HS SC 11/26/24 22:00 11/27/24 22:25 30 UNITS Insulin Human Regular Q6HR SC 11/26/24 18:00 11/28/24 00:06 16 UNITS Morphine Sulfate 2 mg Q6HPRN PRN IV 11/26/24 16:30 Sodium Chloride 10 ml QSHIFT@10,22 IV 11/27/24 22:00 11/27/24 22:24 10 ML Diagnostic Test (Pha) 1 strip Q6HR 11/28/24 00:00 11/28/24 06:00 1 STRIP Dextrose 50 ml UD PRN IV 11/27/24 23:30 Vancomycin HCl 250 ml @ 200 mls/hr Q8H IV 11/28/24 14:00 Examination: GENERAL:Normal, HEENT:Normal, NECK:Normal, LUNGS:Normal, CVS:Normal, ABDOMEN:Normal, MSK:Normal, MSK:Abnormal (LEFT FOOT DRESSING), SKIN:Normal, NEURO:Normal, :Normal laboratory and microbiology Laboratory Tests 11/28/24 05:45 Test 11/28/24 05:45 Range/Units Serum Glucose 87 74-106 mg/dL Microbiology Date/Time Source Procedure Growth Status 11/21/24 14:30 Foot Left Gram Stain - Final Complete 11/21/24 14:30 Anaerobic Culture - Final Prevotella bivia Complete 11/21/24 14:30 Aerobic Culture - Final Staphylococcus aureus Streptococcus Group B Complete 11/20/24 19:30 Blood Blood Culture - Final NO GROWTH AFTER 5 DAYS OF INCUBATION. Complete Problem List/Assessment/Plan Problem List/Assessment/Plan #1 left foot cellulitis/abscess with sepsis s/p surg: iv antibiotics, ivf, s/p repeat surg, ? surg in am #2 uncontrolled dm: increase lantus, ssi #3 non compliance #4 anemia Plan discussed with: Patient My Orders My Orders Orders - ABILIO LIU MD Procedure Category Date Status Time * Picc Line Consult CONS 11/27/24 Transmitted 14:33 Us Guided Vascular US 11/27/24 Taken Access 17:40 Nursing Protocol Picc [facility] 11/27/24 In Process 17:40 Change Dressing Prn [facility] 11/27/24 In Process 17:40 PICC BD 11/27/24 Transmitted 17:40 Sodium Chloride Lock PHA 11/27/24 In Process (Saline Lock Ns) 22:00 Do Not Use Picc For [facility] 11/27/24 In Process Blood Cult 17:40 May Draw Blood From [facility] 11/27/24 In Process Picc 17:40 Ok To Use Picc PA 11/27/24 In Process 17:40 Vancomycin Per [facility] 11/28/24 In Process Pharmacy Protoc 10:17 Creatinine LAB 11/29/24 Verified 05:00 Vancomycin,Trough LAB 11/29/24 Verified 05:00 Vancomycin PHA 11/28/24 In Process 1.25gm/250ml 14:00 Dietary Evaluation Review Comments: Nutrition Recommendation: 1) Khanh 1 pk BID 2) CCHO 75gm diet 3) Refer [employer] for diabetes education Expected Outcomes/Goals: Wound to improve Lab values to improve Fu 3-5 days Date of Service: Nov 28, 2024 Billing Provider: ABILIO LIU MD Common Visit Codes: [id number] INP/OBS CARE(HIGH) ABILIO LIU MD Nov 28, 2024 10:38
[2024-11-28] MEDS: IPRATROPIUM BROM 0.5 MG/2.5ML INH SOL ONE (11:56)
[2024-11-28] MEDS: ALBUTEROL SULF 2.5 MG/0.5ML(0.5%) NEB SOLN ONE (11:56)
[2024-11-29] VITALS (8 sets, daily range): BP systolic 115–137; BP diastolic 70–88; PULSE 92–98; RESP 14–18; TEMP 97.7–99; O2SAT 96–100
[2024-11-29] MEDS: CEFEPIME 1GM/50ML 50 ML IV SCH (08:06)
--- NOTE | 2024-11-29 11:39 | DVHPN2 ---
Subjective Patient denies any pain. Reviewed: Care Plan, H&P, Labs, Medications, Previous Orders, Radiology Changes from previous H/P or p: No Changes General: Per HPI Objective Vitals Vital Signs Date Time Temp Pulse Resp B/P (MAP) Pulse Ox O2 Delivery O2 Flow Rate FiO2 11/29/24 09:00 98.2 97 16 119/74 (89) 98 98.2 11/28/24 20:00 Room Air* 0 21 Intake/Output Intake and Output 11/29/24 07:00 Intake Total 3700 ml Balance 3700 ml Intake Oral 2100 ml IV Total 1600 ml # Voids 7 # Bowel Movements 1 General Appearance: Alert, Oriented X3, Cooperative, No acute distress HEENT: Atraumatic, PERRLA, EOMI, Mucous membr. moist/pink Neck: Supple Lungs: Clear to auscultation, Normal air movement Cardiovascular: Regular rate, Normal S1, Normal S2, No murmurs, Gallops, Rubs Abdomen: Normal bowel sounds, Soft, No tenderness Neuro: Cranial nerves 3-12 NL Skin: Dry, Intact Psych/Mental Status: Mental status NL Medications Current Medications Medications Dose Ordered Sig/Nadir Route Start Time Stop Time Status Last Admin Dose Admin Acetaminophen/ Hydrocodone Bitart 1 tab Q4HP PRN PO 11/20/24 23:30 11/23/24 23:39 1 TAB Ondansetron HCl 4 mg Q4HP PRN IV 11/20/24 23:30 11/27/24 15:32 4 MG Acetaminophen 650 mg Q6HP PRN PO 11/20/24 23:30 11/29/24 05:30 650 MG Sodium Chloride 1,000 ml @ 75 mls/hr [id number] IV 11/21/24 15:45 11/28/24 23:06 75 MLS/HR Vancomycin HCl 0 ml @ 0 mls/hr UD IV 11/21/24 15:45 Insulin Glargine 30 units HS SC 11/26/24 22:00 11/28/24 23:03 30 UNITS Insulin Human Regular Q6HR SC 11/26/24 18:00 11/29/24 00:31 8 UNITS Morphine Sulfate 2 mg Q6HPRN PRN IV 11/26/24 16:30 Sodium Chloride 10 ml QSHIFT@10,22 IV 11/27/24 22:00 11/28/24 23:03 10 ML Diagnostic Test (Pha) 1 strip Q6HR 11/28/24 00:00 11/29/24 06:13 1 STRIP Dextrose 50 ml UD PRN IV 11/27/24 23:30 Cefepime HCl 50 ml @ 12.5 mls/hr Q8H IV 11/29/24 07:30 11/29/24 08:06 12.5 MLS/HR Vancomycin HCl 250 ml @ 200 mls/hr Q8H IV 11/29/24 14:00 Laboratory Results Laboratory Tests 11/28/24 05:45 11/29/24 05:07 Urinalysis Test 11/23/24 17:55 Urine Color Light-yellow (Yellow) Urine Clarity Clear (Clear) Urine pH 6.0 (5.0-9.0) Urine Specific [place] 1.011 (1.001-1.035) Urine Protein Negative (Negative) Urine Ketones Negative (Negative) Urine Blood 3+ /uL (Negative) H Urine Nitrite Negative (Negative) Urine Bilirubin Negative (Negative) Urine Urobilinogen 2 mg/dL (Negative) H Urine Leukocyte Esterase Negative /uL (Negative) Urine RBC 54 /hpf (0 - 4) Urine Microscopic WBC 1 /HPF (0-5) Urine Squamous Epithelial Cells None seen /hpf (<5) Urine Bacteria None seen /hpf (None Seen) Urine Glucose 4+ mg/dL (Normal) H Microbiology Microbiology Date/Time Source Procedure Growth Status 11/21/24 14:30 Foot Left Gram Stain - Final Complete 11/21/24 14:30 Anaerobic Culture - Final Prevotella bivia Complete 11/21/24 14:30 Aerobic Culture - Final Staphylococcus aureus Streptococcus Group B Complete 11/20/24 19:30 Blood Blood Culture - Final NO GROWTH AFTER 5 DAYS OF INCUBATION. Complete Labs and/or images reviewed: Labs reviewed by me, Image(s) reviewed by me Assessment/Plan Assessment/Plan Impression: -sepsis secondary to left foot osteomyelitis -diabetes mellitus, noncompliant -normocytic anemia Plan: -podiatry consultation: Patient is status post I&D. -wound care consultation: Wound VAC placed today -continue antibiotic therapy with vancomycin and cefepime -continue regular insulin sliding scale, Lantus -pain management -social service consultation for IV antibiotic therapy at home, wound VAC Total time spent with patient discussing and formulating plan of care: 35 minutes. This medical document was created using an electronic medical record system with [employer] computerized dictation system. Although this document has been carefully reviewed, there may still be some phonetic and typographical errors. These areas are purely typographical due to imperfections of the software programs, and do not reflect any compromise in the patient's medical care. Plan discussed with: Patient, Other (RN) Date of Service: Nov 29, 2024 Billing Provider: MARCO AVILA NP Common Visit Codes: [id number] INP/OBS CARE(HIGH) MARCO AVILA NP Nov 29, 2024 11:39
[2024-11-29] MEDS: ceFAZolin 1GM/50ML 50 ML IV SCH (13:39)
[2024-11-29] MEDS ORDERED: VANCOMYCIN 1GM/250ML KIT 250 ML IV SCH (14:00)
[2024-11-30] VITALS (8 sets, daily range): BP systolic 127–135; BP diastolic 75–91; PULSE 92–97; RESP 18–19; TEMP 97.2–98.6; O2SAT 98–99
--- NOTE | 2024-11-30 10:29 | DVHPN2 ---
Subjective Patient denies any pain. Reviewed: Care Plan, H&P, Labs, Medications, Previous Orders, Radiology Changes from previous H/P or p: No Changes General: Per HPI Objective Vitals Vital Signs Date Time Temp Pulse Resp B/P (MAP) Pulse Ox O2 Delivery O2 Flow Rate FiO2 11/30/24 08:54 98.3 92 18 129/81 (97) 98 98.3 11/29/24 20:00 Room Air* 0 21 Intake/Output Intake and Output 11/30/24 07:00 Intake Total 4750 ml Balance 4750 ml Intake Oral 3250 ml IV Total 1500 ml # Voids 5 # Bowel Movements 1 General Appearance: Alert, Oriented X3, Cooperative, No acute distress HEENT: Atraumatic, PERRLA, EOMI, Mucous membr. moist/pink Neck: Supple Lungs: Clear to auscultation, Normal air movement Cardiovascular: Regular rate, Normal S1, Normal S2, No murmurs, Gallops, Rubs Abdomen: Normal bowel sounds, Soft, No tenderness Neuro: Cranial nerves 3-12 NL Skin: Dry, Intact, Wounds (See nurse notes and pictures) Psych/Mental Status: Mental status NL, Mood NL Medications Current Medications Medications Dose Ordered Sig/Nadir Route Start Time Stop Time Status Last Admin Dose Admin Acetaminophen/ Hydrocodone Bitart 1 tab Q4HP PRN PO 11/20/24 23:30 11/23/24 23:39 1 TAB Ondansetron HCl 4 mg Q4HP PRN IV 11/20/24 23:30 11/27/24 15:32 4 MG Acetaminophen 650 mg Q6HP PRN PO 11/20/24 23:30 11/30/24 06:30 650 MG Sodium Chloride 1,000 ml @ 75 mls/hr [id number] IV 11/21/24 15:45 11/30/24 06:32 75 MLS/HR Insulin Glargine 30 units HS SC 11/26/24 22:00 11/29/24 21:48 30 UNITS Insulin Human Regular Q6HR SC 11/26/24 18:00 11/30/24 00:17 4 UNITS Morphine Sulfate 2 mg Q6HPRN PRN IV 11/26/24 16:30 Sodium Chloride 10 ml QSHIFT@10,22 IV 11/27/24 22:00 11/29/24 21:53 10 ML Diagnostic Test (Pha) 1 strip Q6HR 11/28/24 00:00 11/30/24 05:26 1 STRIP Dextrose 50 ml UD PRN IV 11/27/24 23:30 Cefazolin Sodium 50 ml @ 100 mls/hr Q6HR IV 11/29/24 12:00 11/30/24 05:03 100 MLS/HR Laboratory Results Laboratory Tests 11/28/24 05:45 11/29/24 05:07 Urinalysis Test 11/23/24 17:55 Urine Color Light-yellow (Yellow) Urine Clarity Clear (Clear) Urine pH 6.0 (5.0-9.0) Urine Specific [place] 1.011 (1.001-1.035) Urine Protein Negative (Negative) Urine Ketones Negative (Negative) Urine Blood 3+ /uL (Negative) H Urine Nitrite Negative (Negative) Urine Bilirubin Negative (Negative) Urine Urobilinogen 2 mg/dL (Negative) H Urine Leukocyte Esterase Negative /uL (Negative) Urine RBC 54 /hpf (0 - 4) Urine Microscopic WBC 1 /HPF (0-5) Urine Squamous Epithelial Cells None seen /hpf (<5) Urine Bacteria None seen /hpf (None Seen) Urine Glucose 4+ mg/dL (Normal) H Microbiology Microbiology Date/Time Source Procedure Growth Status 11/21/24 14:30 Foot Left Gram Stain - Final Complete 11/21/24 14:30 Anaerobic Culture - Final Prevotella bivia Complete 11/21/24 14:30 Aerobic Culture - Final Staphylococcus aureus Streptococcus Group B Complete 11/20/24 19:30 Blood Blood Culture - Final NO GROWTH AFTER 5 DAYS OF INCUBATION. Complete Labs and/or images reviewed: Labs reviewed by me, Image(s) reviewed by me Assessment/Plan Assessment/Plan Impression: -sepsis secondary to left foot osteomyelitis -diabetes mellitus, noncompliant -normocytic anemia Plan: Events: No events overnight. Repeat labs today. No change in A/P. -podiatry consultation: Patient is status post I&D. -wound care consultation: Wound VAC placed today -continue antibiotic therapy with vancomycin and cefepime -continue regular insulin sliding scale, Lantus -pain management -social service consultation for IV antibiotic therapy at home, wound VAC Total time spent with patient discussing and formulating plan of care: 35 minutes. This medical document was created using an electronic medical record system with Dragon computerized dictation system. Although this document has been carefully reviewed, there may still be some phonetic and typographical errors. These areas are purely typographical due to imperfections of the software programs, and do not reflect any compromise in the patient's medical care. Plan discussed with: Patient, Other (RN) My Orders Orders - MARCO AVILA NP Procedure Category Date Status Time * Screen Printing Stencil Preparer CONS 11/29/24 Transmitted Consult Cefazolin 1gm/50ml PHA 11/29/24 In Process (Ancef) 12:00 Complete Blood Count LAB 11/30/24 Logged 10:25 Basic Metabolic Panel LAB 11/30/24 Logged 10:25 Date of Service: Nov 30, 2024 Billing Provider: MARCO AVILA NP Common Visit Codes: [id number] INP/OBS CARE(HIGH) MARCO AVILA NP Nov 30, 2024 10:29
[2024-11-30 11:11] LABS: Hematocrit 28.8 % (36.0-46.0); Hemoglobin 9.8 g/dL (12.2-16.2); Mean Corpuscular Hemoglobin 29.3 pg (28.0-32.0); Mean Corpuscular Volume 86.1 fL (80.0-100.0); Nucleated Red Blood Cells % 0.0 %
[2024-11-30 11:19] LABS: Chloride 102 mmol/L (98-107); Potassium 4.1 mmol/L (3.5-5.1); Sodium 140 mmol/L (136-145)
[2024-11-30 11:20] LABS: Anion Gap 9 (5-15); Carbon Dioxide 29 mmol/L (20-31)
[2024-11-30 11:25] LABS: BUN/Creatinine Ratio 27.3 (10.0-20.0); Blood Urea Nitrogen 15 mg/dL (9-23)
[2024-11-30 11:49] LABS: Calcium 8.7 mg/dL (8.7-10.4); Glucose 229 mg/dL (74-106)
[2024-12-01 01:00] VITALS: BP 111/69; PULSE 99; RESP 18; TEMP 97.8; O2SAT 97
[2024-12-01 05:00] VITALS: BP 128/83; PULSE 92; RESP 18; TEMP 97.8; O2SAT 98
[2024-12-01 08:00] VITALS: PULSE 96; RESP 18; O2SAT 98
[2024-12-01 09:00] VITALS: BP 133/89; PULSE 96; RESP 18; TEMP 98; O2SAT 98
--- NOTE | 2024-12-01 11:04 | DVHDS2 ---
Discharge Summary Date of Admission Nov 20, 2024 at 23:18 Date of Discharge: Dec 01, 2024 Admitting Diagnosis Infected left foot wound Labs/Diagnostic Data: Laboratory Results Test 12/01/24 05:04 11/30/24 10:48 11/29/24 05:07 11/28/24 05:45 POC Glucose 93 mg/dl (70-106) White Blood Count 13.4 10^3/uL (4.4-10.8) Red Blood Count 3.34 10^6/uL (4.0-5.20) Hemoglobin 9.8 g/dL (12.2-16.2) Hematocrit 28.8 % (36.0-46.0) Mean Corpuscular Volume 86.1 fL (80.0-100.0) Mean Corpuscular Hemoglobin 29.3 pg (28.0-32.0) Mean Corpuscular Hemoglobin Concent 34.0 g/dL (32.0-36.0) Red Cell Distribution Width 13.2 % (11.8-14.3) Platelet Count 452 10^3/uL (140-450) Mean Platelet Volume 7.1 fL (6.9-10.8) Neutrophils (%) (Auto) 80.5 % (37.0-80.0) Lymphocytes (%) (Auto) 12.9 % (10.0-50.0) Monocytes (%) (Auto) 5.9 % (0.0-12.0) Eosinophils (%) (Auto) 0.4 % (0.0-7.0) Basophils (%) (Auto) 0.3 % (0.0-2.0) Neutrophils # (Auto) 10.8 10 ^3/uL (1.6-8.6) Lymphocytes # (Auto) 1.7 10 ^3/uL (0.4-5.4) Monocytes # (Auto) 0.8 10 ^3/uL (0-1.3) Eosinophils # (Auto) 0.1 10 ^3/uL (0-0.8) Basophils # (Auto) 0 10 ^3/uL (0-0.2) Nucleated Red Blood Cells 0.0 % Sodium Level 140 mmol/L (136-145) Potassium Level 4.1 mmol/L (3.5-5.1) Chloride Level 102 mmol/L (98-107) Carbon Dioxide Level 29 mmol/L (20-31) Anion Gap 9 (5-15) Blood Urea Nitrogen 15 mg/dL (9-23) Creatinine 0.55 mg/dL (0.550-1.02) Glomerular Filtration Rate Calc 126 mL/min (>90) BUN/Creatinine Ratio 27.3 (10.0-20.0) Serum Glucose 229 mg/dL (74-106) Calcium Level 8.7 mg/dL (8.7-10.4) Vancomycin Level Trough 15.6 ug/mL (5-10) Differential Total Cells Counted 100.0 (100) Neutrophils % (Manual) 77 (37.0-80.0) Band Neutrophils % (Manual) 2 Lymphocytes % (Manual) 14 (10.0-50.0) Monocytes % (Manual) 5 (0-12) Eosinophils % (Manual) 0 (0-7) Basophils % (Manual) 0 (0.0-2.0) Metamyelocytes % (manual) 0 Myelocytes % (Manual) 2 Promyelocytes % (Manual) 0 Blast Cells % (Manual) 0 Reactive Lymphocytes 0 Platelet Estimate Increased Test 11/27/24 05:12 11/23/24 17:55 11/22/24 05:06 11/21/24 06:28 Prothrombin Time 10.6 sec (9.3-11.8) Prothrombin Time INR 1.00 (0.9-1.15) Activated Partial Thromboplast Time 28.5 SEC (24.5-34.5) Magnesium Level 1.9 mg/dL (1.6-2.6) Urine Color Light-yellow (Yellow) Urine Clarity Clear (Clear) Urine pH 6.0 (5.0-9.0) Urine Specific [place] 1.011 (1.001-1.035) Urine Protein Negative (Negative) Urine Ketones Negative (Negative) Urine Blood 3+ /uL (Negative) Urine Nitrite Negative (Negative) Urine Bilirubin Negative (Negative) Urine Urobilinogen 2 mg/dL (Negative) Urine Leukocyte Esterase Negative /uL (Negative) Urine RBC 54 /hpf (0 - 4) Urine Microscopic WBC 1 /HPF (0-5) Urine Squamous Epithelial Cells None seen /hpf (<5) Urine Bacteria None seen /hpf (None Seen) Urine Glucose 4+ mg/dL (Normal) Total Bilirubin 1.2 mg/dL (0.2-1.0) Aspartate Amino Transferase (AST) 18 U/L (13-40) Alanine Aminotransferase (ALT) 23 U/L (7-40) Alkaline Phosphatase 153 U/L (46-116) Total Protein 6.1 g/dL (5.7-8.2) Albumin 3.1 g/dL (3.2-4.8) Beta HCG, Quantitative 0.0 mIU/mL (1.5-4.2) Urine Opiates Screen Neg (NEGATIVE) Urine Fentanyl Screen Neg (NEGATIVE) Urine Barbiturates Screen Neg (NEGATIVE) Urine Phencyclidine Screen Neg (NEGATIVE) Urine Amphetamines Screen Neg (NEGATIVE) Urine Benzodiazepines Screen Neg (NEGATIVE) Urine Cocaine Screen Neg (NEGATIVE) Urine Cannabinoids Screen Pos (NEGATIVE) Test 11/20/24 21:20 11/20/24 19:30 11/20/24 19:29 Lactic Acid Level 1.6 mmol/L (0.4-2.0) Hemoglobin A1c 12.1 % A1C (<5.7) Beta-Hydroxybutyric Acid 3.651 mmol/L (< 0.4) Blood Gas Specimen Type Venous Blood Gas Sample Site Vbg - n/a Blood Gas Patient Temperature 37.0 Arterial Blood Date Drawn [id number] Otoniel Test N/a Venous Blood pH 7.431 (7.320-7.430) Venous Blood pCO2 at Patient Temp 28.7 mmHg (38.0-54.0) Venous Blood pO2 at Patient Temp < 36.5 mmHg (23.0-48.0) Venous Blood HCO3 18.7 mmol/L (22.0-29.0) Venous Blood Base Excess -4.1 mmol/L (-2.0-3.0) Blood Gas Modality Vbg - n/a FiO2 % 21.0 Other Laboratory Tests 11/30/24 10:48 Brief Hx & Hospital Course: History of Present Illness 28-year-old female presents for evaluation of left foot wound. Patient reports developing a wound three weeks ago when she was picking at a callus on her left foot. She states three days ago she noticed some purulent discharge and foul smell from the wound. She has been having fever since yesterday. No other acute complaints reported. Course of hospitalization: Patient was placed on empiric antibiotic therapy. Patient was found to have uncontrolled diabetes mellitus, for which the patient states that she has been off her medications for approximately five years. Podiatry consultation was obtained with the patient going to the OR for I and D on three different occasions. Patient's wounds extensive in his able to close, with wound VAC placed on the foot. Patient will be discharged with home health services, IV antibiotic therapy with Ancef 1 g to be given 4 times a day, Lantus 30 units q.h.s., as well as patient being started on metformin 500 mg p.o. b.i.d.. Patient will be prescribed a diabetic Accu-Chek machine. She will follow up with her established PCP appointment this week as well as Dr. Rodriguez in 1-2 weeks. Physical examination General: Alert and Oriented x3. No acute distress. Well-nourished. Eyes: EOMI. Anicteric. HENT: Moist mucous membranes. Lungs: Clear to auscultation bilaterally. No accessory muscle use. Cardiovascular: Regular rate and rhythm. No murmur. No JVD. Abdomen: Soft, non-tender and non-distended. No palpable masses. Extremities: No edema. Non-tender. Skin: No rashes or lesions. Warm. Neurologic: No focal neurological deficits. CN II-XII grossly intact, but not individually tested. Psychiatric: Cooperative. Appropriate mood and affect. Total time spent with patient discussing and formulating plan of care: 35 minutes. This medical document was created using an electronic medical record system with [email or web address] dictation system. Although this document has been carefully reviewed, there may still be some phonetic and typographical errors. These areas are purely typographical due to imperfections of the software programs, and do not reflect any compromise in the patient's medical care. Consults/Reason for consult Podiatry Operations or Procedures Left foot I and D Condition at Discharge: Good Final Diagnosis/Problems List Left foot necrotizing fasciitis -diabetes mellitus, noncompliant -normocytic anemia -diabetic ketoacidosis Discharge Disposition: Home with Health Services Discharge Instruct/Medications Diet: Consistent carbohydrate Activity: No Restrictions, As Tolerated Activity comment: No weight-bearing to left foot Follow Up/Referral: PCP in one week Podiatry, Dr. Rodriguez in 1-2 weeks Medications: Ancef 1 g IV q.6 hours Lantus 30 units q.h.s. Metformin 500 mg p.o. b.i.d. 36 Discharge Statement: "Patient was advised to return to the ER or call 911 if any headaches, dizziness, shortness of breath, chest pain, abdominal pain, bleeding, fevers, or worsening of medical condition. Patient was counseled about treatment plan, medications, possible side effects, patientverbalized understanding. All questions were answered to the best of my ability. This discharge took greater then 30 minutes in planning, reviewing documentation, counseling the patient, and discussing with other team members." ASSESSMENT ASSESSMENT Assessment Left foot necrotizing fasciitis Date of Service: Dec 01, 2024 Billing Provider: MARCO AVILA NP Common Visit Codes: [id number] DISCH DAY >30min MARCO AVILA NP Dec 01, 2024 11:04
[2024-12-01] MEDS ORDERED: BLOO1KIT60 XX (11:07)
[2024-12-01] MEDS ORDERED: METF-370 PO (11:07)
[2024-12-01] MEDS ORDERED: INSLANTI SC (11:07)
[2024-12-01] MEDS ORDERED: LANC-268 XX (11:07)
[2024-12-01 12:22] VITALS: BP 132/85; PULSE 92; RESP 18; TEMP 36.7; O2SAT 99
[2024-12-01 12:53] VITALS: BP 132/85; PULSE 92; RESP 18; TEMP 98.2; O2SAT 99
== END 2024-12-01 14:40 | disposition home health service (06) | DRG 720 ==
LOC: ER 18:49 → OVERFLOW 23:18 → EAST 11-21 03:00
PROVIDERS: ADMIT Nurse Practitioner Acute Care; ATTEND Nurse Practitioner Acute Care
PROC: 0Y9N0ZZ Drainage of Left Foot, Open Approach (ICD-10-PCS; principal; 2024-11-21 14:22)
PROC: 0Y9N0ZZ Drainage of Left Foot, Open Approach (ICD-10-PCS; 2024-11-25)
PROC: 0Y9N0ZZ Drainage of Left Foot, Open Approach (ICD-10-PCS; 2024-11-27)
PROC: 02HV33Z Insertion of Infusion Device into Superior Vena Cava, Percutaneous Approach (ICD-10-PCS; 2024-11-27)
PROC: B548ZZA Ultrasonography of Superior Vena Cava, Guidance (ICD-10-PCS; 2024-11-27)
DX: A41.9 Sepsis, unspecified organism (principal); M72.6 Necrotizing fasciitis; E11.10 Type 2 diabetes mellitus with ketoacidosis without coma; L03.116 Cellulitis of left lower limb; E11.621 Type 2 diabetes mellitus with foot ulcer; D64.9 Anemia, unspecified; M86.8X7 Other osteomyelitis, ankle and foot; E66.9 Obesity, unspecified; L02.612 Cutaneous abscess of left foot; L97.529 Non-pressure chronic ulcer of other part of left foot with unspecified severity; E11.69 Type 2 diabetes mellitus with other specified complication; E11.65 Type 2 diabetes mellitus with hyperglycemia; Z68.30 Body mass index [BMI] 30.0-30.9, adult; Z91.199 Patient's noncompliance with other medical treatment and regimen due to unspecified reason; Z79.4 Long term (current) use of insulin
CPT/HCPCS: 36415; 36569; 36600; 73630; 76856; 76937; 80048; 80053; 80202; 80307; 81001; 82010; 82565; 82805; 82962; 83036; 83605; 83735; 84702; 85007; 85025; 85027; 85610; 85730; 87040; 87070; 87075; 87076; 87077; 87081; 87186; 87205; 96365; 96372; 96375; 99291; G0378; J1100; J1815; J1885; J2405; J2543; J2704; J3490

== ENCOUNTER 2024-12-13 10:35 | Inpatient (IN) | payer MEDICAID ==
[~2024-12-13] VITALS: Ht 183.5 cm; Wt 99.2 kg
[~2024-12-13 10:35] MED LIST: BLOO1KIT60 XX; INSLANTI SC; LANC-268 XX; METF-370 PO
--- NOTE | 2024-12-13 10:59 | ED.PDOC ---
History of Present Illness HPI Comments A 28 YEAR OLD FEMALE PRESENTS TO THE ED WITH COMPLAINT OF INFECTED WOUND OF LEFT FOOT. PATIENT STATES SHE HAS A HISTORY OF DIABETES AND HAS HAD A WOUND ON HER LEFT FOOT FOR THE PAST FEW WEEKS. PATIENT REPORTS SHE WAS ADMITTED ON 11/20/2024 FOR AN INFECTION OF THIS WOUND ON HER LEFT FOOT AND HAD A DEBRIDEMENT DONE DURING THIS HOSPITAL STAY. PATIENT STATES SHE WENT TO A FOLLOW UP APPOINTMENT WITH HER ATHLETIC COACH, DR. LORENZO TODAY AND WAS INSTRUCTED TO GO TO THE ED AGAIN FOR ADMISSION FOR ANOTHER DEBRIDEMENT PROCEDURE ON HER LEFT FOOT. PATIENT NOTES SHE ALREADY HAS A PICC LINE IN PLACE AND RECEIVES ANCEF INTRAVENOUSLY ON A DAILY BASIS. PATIENT DENIES FEVER, CHILLS, SHORTNESS OF BREATH, CHEST PAIN, ABDOMINAL PAIN, NAUSEA, VOMITING, HEADACHE, OR OTHER COMPLAINTS. NO OTHER SYMPTOMS OR MODIFYING FACTORS AT THIS TIME. PATIENT IS ALERT, ORIENTED X 4, AND HAS STEADY GAIT. Chief Complaint: Lower Extremity Time Seen by MD: 10:38 Reviewed Notes: Nurses Notes, Medications, Allergies Allergies: Coded Allergies: NO KNOWN ALLERGIES (Unverified , 11/20/24) Home Meds Active Scripts Blood Glucose Monitoring Suppl (D-Care Glucometer Kit/Glu W/Device) 1 Kit Kit, KIT XX BID, #1 Prov:MARCO AVILA NP 12/01/24 Lancets (Accu-Chek Softclix Lancet) Lancets Mis, BOX XX BID, #1 Prov:MARCO AVILA NP 12/01/24 Metformin Hydrochloride (Metformin Hcl) 500 Mg Tab, 1 TAB PO BID for 30 Days, #60 TAB 3 Refills Prov:MARCO AVILA NP 12/01/24 Insulin Glargine (Lantus) 100 Unit/Ml Inj, 30 UNIT SC HS for 30 Days, #5 INJ Please provide patient Lantus quick pen 30 units q.h.s.. Quantity five with two refills Prov:MARCO AVILA NP 12/01/24 Information Source: Patient Mode of Arrival: Ambulatory Severity: Moderate Timing: Days Duration: Since onset, Days Prehospital treatment: None Medication Refill: For: Other (INFECTED WOUND OF LEFT FOOT) Past Medical History PAST MEDICAL HISTORY: DM Surgical History: Denies all surgeries COMMUNITY AIDE History: Denies all COMMUNITY AIDE Hx Family History Family History: Reviewed,noncontributory to illness Social History Smoker: Non-Smoker Alcohol: Denies ETOH Use Drugs: Denies Drug Use Lives In: Home Constitutional: denies: chills, diaphoresis, fatigue, fever, malaise, sweats, weakness, others EENTM: denies: blurred vision, double vision, ear bleeding, ear discharge, ear drainage, ear pain, ear ringing, eye pain, eye redness, hearing loss, mouth pain, mouth swelling, nasal discharge, nose bleeding, nose congestion, nose pain, photophobia, tearing, throat pain, throat swelling, voice changes, others Respiratory: denies: cough, hemoptysis, orthopnea, SOB at rest, shortness of breath, SOB with excertion, stridor, wheezing, others Cardiovascular: denies: chest pain, dizzy spells, diaphoresis, Dyspnea on exertion, edema, irregular heart beat, left arm pain, lightheadedness, palpitations, PND, syncope, others Gastrointestinal: denies: abdomen distended, abdominal pain, blood streaked bowels, constipated, diarrhea, dysphagia, difficulty swallowing, hematemesis, melena, nausea, poor appetite, poor fluid intake, rectal bleeding, rectal pain, vomiting, others Genitourinary: denies: abnormal vagina bleeding, burning, dyspareunia, dysuria, flank pain, frequency, hematuria, incontinence, pain, , vagina discharge, urgency, others Neurological: denies: dizziness, fainting, headache, left sided numbness, left sided weakness, numbness, paresthesia, pre-existing deficit, right sided numbness, right sided weakness, seizure, speech problems, tingling, tremors, weakness, others Musculoskeletal: denies: back pain, gout, joint pain, joint swelling, muscle pain, muscle stiffness, neck pain, others Integumetry: reports: lesions, wounds (INFECTED WOUND OF LEFT FOOT); denies: bruises, change in color, change in hair/nails, dryness, laceration, lumps, rash, others Allergic/Immunocompromised: denies: Difficulty Healing, Frequent Infections, Hives, Itching, others Hematologic/Lymphatic: denies: anemia, blood clots, easy bleeding, easy bruising, swollen glands, others Endocrine: denies: excessive hunger, excessive sweating, excessive thirst, excessive urination, flushing, intolerance to cold, intolerance to heat, unexplained weight gain, unexplained weight loss, others Psychiatric: denies: anxiety, bipolar disorder, depression, hopeless, panic disorder, schizophrenia, sleepless, suicidal, others All Other Systems: Reviewed and Negative Physical Exam General Appearance: No Apparent Distress, Normal HEENT: Normal ENT Inspection, PERRL/EOMI, Pharynx Normal, TMs Normal Neck: Full Range of Motion, Non-Tender, Normal, Normal Inspection Respiratory: Chest Non-Tender, Lungs Clear, No Accessory Muscle Use, No Respiratory Distress, Normal Breath Sounds Cardiovascular: No Edema, No JVD, No Murmur, No Gallop, Normal Peripheral Pulses, Regular Rate/Rhythm Breast Exam: Deferred Gastrointestinal: No Organomegaly, Non Tender, No Pulsatile Mass, Normal Bowel Sounds, Soft Genitalia: Deferred Pelvic: Deferred Rectal: Deferred Extremities: Decreased range of motion, No calf tenderness, Normal capillary refill, No pedal edema, Swelling (TENDERNESS AND SWELLING WITH OPEN WOUND ON LEFT DORSAL AND PLANTAR FOOT. ), Tender (AND SWELLING WITH REDNESS AND OPEN WOUND ON LEFT FOOT. ) Musculoskeletal : Apperance: Normal Neurologic: Alert, senior courtroom clerk II-XII nml as Tested, No Motor Deficits, Normal Affect, Normal Mood, No Sensory Deficits Cerebellar Function: Normal Reflexes: Normal Skin: Dry, Warm, Wounds (LOCALIZED REDNESS AND SWELLING WITH TWO OPEN WOUNDS WITH YELLOW DRAINAGE ON DORSAL AND PLANTAR LEFT FOOT. +DIABETIC FOOT ULCER WOUND) Peripheral Pulses: 2+ carotid (R), 2+ carotid (L), 2+ dorsalis pedis (R), 2+ dorsalis pedis (L) Lymphatic: No Adenopathy Was a procedure done? Was a procedure done?: No Differential Dx Considerations may include: WOUND INFECTION, WOUND RECHECKED, DIABETIC FOOT ULCER, FAILURE OF OUTPATIENT TREATMENT, DIRECT REFERRAL FOR ADMISSION X-Ray, Labs, Meds, VS Vital Signs Date Time Temp Pulse Resp B/P (MAP) Pulse Ox O2 Delivery O2 Flow Rate FiO2 12/13/24 10:38 97.9 104 16 135/84 98 97.9 Lab Test 12/13/24 12:16 12/13/24 10:55 Range/Units Urine Test Negative Negative White Blood Count 12.2 H 4.4-10.8 10^3/uL Red Blood Count 3.53 L 4.0-5.20 10^6/uL Hemoglobin 9.8 L 12.2-16.2 g/dL Hematocrit 29.0 L 36.0-46.0 % Mean Corpuscular Volume 82.1 80.0-100.0 fL Mean Corpuscular Hemoglobin 27.7 L 28.0-32.0 pg Mean Corpuscular Hemoglobin Concent 33.8 32.0-36.0 g/dL Red Cell Distribution Width 13.7 11.8-14.3 % Platelet Count 459 H 140-450 10^3/uL Mean Platelet Volume 7.0 6.9-10.8 fL Neutrophils (%) (Auto) 81.4 H 37.0-80.0 % Lymphocytes (%) (Auto) 11.0 10.0-50.0 % Monocytes (%) (Auto) 6.7 0.0-12.0 % Eosinophils (%) (Auto) 0.6 0.0-7.0 % Basophils (%) (Auto) 0.3 0.0-2.0 % Neutrophils # (Auto) 9.9 H 1.6-8.6 10 ^3/uL Lymphocytes # (Auto) 1.3 0.4-5.4 10 ^3/uL Monocytes # (Auto) 0.8 0-1.3 10 ^3/uL Eosinophils # (Auto) 0.1 0-0.8 10 ^3/uL Basophils # (Auto) 0 0-0.2 10 ^3/uL Nucleated Red Blood Cells 0.0 % Sodium Level 133 L 136-145 mmol/L Potassium Level 4.1 3.5-5.1 mmol/L Chloride Level 99 98-107 mmol/L Carbon Dioxide Level 26 20-31 mmol/L Anion Gap 8 5-15 Blood Urea Nitrogen 40 H 9-23 mg/dL Creatinine 0.57 0.550-1.02 mg/dL Glomerular Filtration Rate Calc 125 >90 mL/min BUN/Creatinine Ratio 70.2 H 10.0-20.0 Serum Glucose 143 H 74-106 mg/dL Lactic Acid Level 0.8 0.4-2.0 mmol/L Calcium Level 8.9 8.7-10.4 mg/dL X-Ray, Labs, Meds, VS Comment EXTERNAL MEDICAL RECORDS REVIEWED: [NONE] INDEPENDENT HISTORIANS: [NONE] SOCIAL DETERMINANTS OF HEALTH: [NONE] LABS ORDERED: CBC, BMP, LACTIC ACID W/REFLEX, WOUND CULTURE REVIEWED AND INTERPRETED RESULTS: WBC 12.2, HGB 9.8 IMAGING ORDERED: NONE TREATMENTS ORDERED: NS 1 L IV, ANCEF 1 G IV PROCEDURES PERFORMED: NONE CRITICAL CARE TIME: NONE I HAVE DISCUSSED THE PATIENT WITH THE ATTENDING PHYSICIAN DR. HERNANDES AND HE AGREES WITH THE PATIENT'S PLAN OF CARE. UPON MY PHYSICAL EXAMINATION, THE PATIENT HAD AN INFECTED WOUND ON HER LEFT FOOT CONSISTENT WITH AN INFECTED DIABETIC FOOT ULCER. DUE TO THE FACT THAT THE PATIENT'S WOUND DOES NOT APPEAR TO BE GETTING BETTER DESPITE PICC LINE IV TREATMENT AND THE FACT THAT HER ATHLETIC COACH SENT HER TO THE ED TODAY FOR FURTHER DEBRIDEMENT OF HER WOUND AND ADMISSION, I HAVE DETERMINED THAT THE PATIENT NEEDS TO BE ADMITTED FOR FURTHER TREATMENT AND EVALUATION. ON-CALL HOSPITALIST WILL BE CONTACTED FOR ADMISSION OF THIS PATIENT. Time of 1ST Reevaluation: 14:13 Reevaluation 1ST: Unchanged Patient Education/Counseling: Diagnosis, Treatment Family Education/Counseling: Diagnosis, Treatment SEPSIS Sepsis Screen Date sepsis recognized/suspect: Dec 13, 2024 Time Sepsis recognized/suspect: 1042 Recent Procedure: Yes On Antibiotic Therapy: Yes Respiratory Rate >20: No Heart Rate >90: Yes Temp<36 C (96.8 F) or >38.3 C: No SBP <90 or MAP <65 mmHG: No New Acute Mental Status Change: No Is the patient on CPAP, BIPAP,: No Physician Orders Wound Culture W/ Gs (12/13/24 10:51) Heplock Iv (12/13/24 ) Sodium Chloride 0.9% (12/13/24 11:45) Chest Portable (12/13/24 11:58) Vital Signs Date Time Temp Pulse Resp B/P (MAP) Pulse Ox O2 Delivery O2 Flow Rate FiO2 12/13/24 10:38 97.9 104 16 135/84 98 97.9 Laboratory Tests Test 12/13/24 10:55 Lactic Acid Level 0.8 mmol/L (0.4-2.0) White Blood Count 12.2 10^3/uL (4.4-10.8) H Departure 1 Departure Time of Disposition: 14:14 Impression: Primary Impression: Diabetic ulcer of left foot Qualified Codes: E11.621 - Type 2 diabetes mellitus with foot ulcer; L97.429 - Non-pressure chronic ulcer of left heel and midfoot with unspecified severity Additional Impression: Failure of outpatient treatment Disposition: ADMITTED INPATIENT Condition: Serious Critical Care Note Critical Care Time?: No Stability Stability form required: Yes Unstable for transfer: Requires medication, ED Physician Assesment, Possible rapid decline I personally scribed for LUDIN VOGEL ([email or web address]) on 12/13/24 at 10:59. Electronically submitted by Keshav Dc ([employer]). I personally scribed for LUDIN VOGEL ([email or web address]) on 12/13/24 at 11:04. Electronically submitted by Keshav Dc ([employer]). I personally scribed for LUDIN VOGEL ([email or web address]) on 12/13/24 at 11:52. Electronically submitted by Keshav Dc ([employer]). LUDIN VOGEL Dec 13, 2024 10:59
[2024-12-13 11:17] LABS: Hematocrit 29.0 % (36.0-46.0); Hemoglobin 9.8 g/dL (12.2-16.2); Mean Corpuscular Hemoglobin 27.7 pg (28.0-32.0); Mean Corpuscular Volume 82.1 fL (80.0-100.0); Nucleated Red Blood Cells % 0.0 %
[2024-12-13 11:27] LABS: Chloride 99 mmol/L (98-107); Potassium 4.1 mmol/L (3.5-5.1)
[2024-12-13 11:28] LABS: Anion Gap 8 (5-15); Calcium 8.9 mg/dL (8.7-10.4); Carbon Dioxide 26 mmol/L (20-31)
[2024-12-13 11:29] LABS: Sodium 133 mmol/L (136-145)
[2024-12-13 11:33] LABS: BUN/Creatinine Ratio 70.2 (10.0-20.0); Glucose 143 mg/dL (74-106)
[2024-12-13 11:34] LABS: Blood Urea Nitrogen 40 mg/dL (9-23)
--- NOTE | 2024-12-13 12:59 | DVH ---
EXAM: XY CHEST PORTABLE Indication: PICC line confirmation Technique: Single frontal view of the chest was obtained Comparison: None FINDINGS: Lines and Tubes: Right PICC tip projects over superior vena cava. Lungs: No focal consolidation. Pleura: No effusion. No pneumothorax. Cardiomediastinal contours: Unremarkable Bones: No acute osseous abnormality. IMPRESSION: No acute cardiopulmonary disease.
[2024-12-13] MEDS: SODIUM CHLORIDE 0.9% 1,000 ML IV ONE ×2 (14:57→15:09)
[2024-12-13] MEDS: ceFAZolin 1GM/50ML 50 ML IV ONE (14:57)
[2024-12-13] MEDS ORDERED: VANCOMYCIN PER PHARMACY 0 MG IV SCH (17:00)
[2024-12-13] MEDS ORDERED: HYDROcodone-ACET 5/325MG TAB PO PRN (17:00)
--- NOTE | 2024-12-13 17:33 | DVHHPRES ---
History of Present Illness Resident Creating Document: JALEEL FERGUSON RESIDENT History of Present Illness 28-year-old female with past medical history of type 2 diabetes for the past 13 years presented to the emergency department with complaints of infected wound of the left foot. Patient states that she was admitted on 11/20/2024 to this facility because she had a callus on her foot which she picked, that began to bleed and got infected with pus oozing out. She was admitted by Dr. Rodriguez/podiatry and he performed incision and drainage procedures on her 3 times during her stay at the hospital. Patient reports she was sent home with a PICC line and medication antibiotic Ancef. She had home health, and wound was cleaned last on Monday. Today she reports that she went for a follow up appointment with her shop helper, Dr. Rodriguez who instructed her to go to the ED again for admission for another debridement procedure on her left foot. Patient denies any fever, chills, shortness of breath, chest pain, abdominal pain, nausea, vomiting, headache or any other complaints. on inquiry the patient states that she has had type 2 diabetes for the past 13 years and has been noncompliant to her insulin medication and metformin for the past 5 years because she suffers from depression. On inquiry she has no suicidal ideation or plan now but reports she had it in her last hospitalization. Patient states that she has been to her PCP who has referred her to a behavioral health specialist. Patient reports that she has been compliant with metformin 500 mg, Lantus 30 mg HS and Ancef medication daily for the past 2 weeks. She states that her blood glucose levels have been good and today it was 107 in the morning. Patient is septic on admission with a heart rate of 98 and WBC of 12.2 with a source of infection being her left foot wound. We are admitting her for further workup. Past medical history: As stated above Past surgical history: Incision and drainage of the same wound on her left leg 3 times in the last hospitalization Family history: Father's mother and sister had diabetes, patient's brother has diabetes type 2 as well social history: Patient denies smoking, drinking alcohol or using any other illicit drugs now. Patient admits she used to smoke marijuana heavily for 10 years and stopped 3 weeks ago when she got hospitalized home medications: Ancef via PICC line, metformin 500 mg, Lantus 30 HS allergies: None Review of Systems Constitutional: No: Fever, Chills, Sweats, Weakness, Malaise, Other Eyes: No: Pain, Vision change, Conjunctivae inflammation, Eyelid inflammation, Other, Redness ENT: No: Ear pain, Ear discharge, Nose pain, Nose discharge, Nose congestion, Mouth pain, Mouth swelling, Throat pain, Throat swelling, Other Respiratory: No: Cough, Dry, Shortness of breath, SOB with excertion, Wheezing, Hemoptysis, Pleuritic Pain, Sputum, Wheezing, Other Cardiovascular: No: Chest Pain, Palpitations, Orthopnea, Paroxysmal Noc. Dyspnea, Edema, Lt Headedness, Other Gastrointestinal: No: Nausea, Vomiting, Abdominal Pain, Diarrhea, Constipation, Melena, Hematochezia, Other Genitourinary: No Dysuria, No Frequency, No Incontinence, No Hematuria, No Retention, No Other Musculoskeletal: foot pain; No: other, neck pain, shoulder pain, arm pain, back pain, hand pain, leg pain Skin: No: Rash, Lesions, Jaundice, Bruising, Other Neurological: No: Weakness, Numbness, Incoordination, Change in speech, Confusion, Seizures, Other Allergies: Coded Allergies: NO KNOWN ALLERGIES (Unverified , 11/20/24) Medications Current Medications Medications Dose Ordered Sig/Nadir Route Start Time Stop Time Status Last Admin Dose Admin Ondansetron HCl 4 mg Q4HP PRN IV 12/13/24 16:45 Enoxaparin Sodium 40 mg DAILY SC 12/14/24 10:00 Acetaminophen 650 mg Q6HP PRN PO 12/13/24 16:45 Insulin Glargine 30 units HS SC 12/13/24 22:00 Insulin Human Lispro AC SC 12/13/24 17:00 Metronidazole 100 ml @ 100 mls/hr Q8H IV 12/14/24 01:00 Cefepime HCl 50 ml @ 12.5 mls/hr Q8H IV 12/14/24 02:00 Vancomycin HCl 0 ml @ 0 mls/hr UD IV 12/13/24 17:00 UNV Acetaminophen/ Hydrocodone Bitart 1 tab Q4HPRN PRN PO 12/13/24 17:00 Pantoprazole Sodium 40 mg DAILY IV 12/14/24 10:00 Exam Vital Signs Vital Signs Date Time Temp Pulse Resp B/P (MAP) Pulse Ox O2 Delivery O2 Flow Rate FiO2 10/17/25 10:38 97.9 104 16 135/84 98 97.9 Exam General Appearance: Alert, Oriented X3, Cooperative, Not in acute distress HEENT: Atraumatic, Mucous membranes moist/pink Respiratory: Clear to auscultation, Normal air movement, No added sounds Cardiovascular: Regular rate, Normal S1, Normal S2, No murmurs Abdominal: Active bowel sounds, Soft, no distention, no tenderness Extremities: Present soft wet wound on the 4th metatarsal measuring 0.5 x3 cm on the dorsal as well as the plantar surface of the left foot, Oozing slightly, foul-smelling. Presence of blackish discoloration of the 4th toe on the left leg Skin: No Significant rash, except past surgical scars Neuro: Normal speech, sensorimotor deficits none Psych/Mental Status: Mental status NL, Mood NL Nurse was there as irrigation equipment mechanic during examination Labs/Xrays Labs Test 12/13/24 12:16 12/13/24 10:55 Range/Units Urine Test Negative Negative White Blood Count 12.2 H 4.4-10.8 10^3/uL Red Blood Count 3.53 L 4.0-5.20 10^6/uL Hemoglobin 9.8 L 12.2-16.2 g/dL Hematocrit 29.0 L 36.0-46.0 % Mean Corpuscular Volume 82.1 80.0-100.0 fL Mean Corpuscular Hemoglobin 27.7 L 28.0-32.0 pg Mean Corpuscular Hemoglobin Concent 33.8 32.0-36.0 g/dL Red Cell Distribution Width 13.7 11.8-14.3 % Platelet Count 459 H 140-450 10^3/uL Mean Platelet Volume 7.0 6.9-10.8 fL Neutrophils (%) (Auto) 81.4 H 37.0-80.0 % Lymphocytes (%) (Auto) 11.0 10.0-50.0 % Monocytes (%) (Auto) 6.7 0.0-12.0 % Eosinophils (%) (Auto) 0.6 0.0-7.0 % Basophils (%) (Auto) 0.3 0.0-2.0 % Neutrophils # (Auto) 9.9 H 1.6-8.6 10 ^3/uL Lymphocytes # (Auto) 1.3 0.4-5.4 10 ^3/uL Monocytes # (Auto) 0.8 0-1.3 10 ^3/uL Eosinophils # (Auto) 0.1 0-0.8 10 ^3/uL Basophils # (Auto) 0 0-0.2 10 ^3/uL Nucleated Red Blood Cells 0.0 % Sodium Level 133 L 136-145 mmol/L Potassium Level 4.1 3.5-5.1 mmol/L Chloride Level 99 98-107 mmol/L Carbon Dioxide Level 26 20-31 mmol/L Anion Gap 8 5-15 Blood Urea Nitrogen 40 H 9-23 mg/dL Creatinine 0.57 0.550-1.02 mg/dL Glomerular Filtration Rate Calc 125 >90 mL/min BUN/Creatinine Ratio 70.2 H 10.0-20.0 Serum Glucose 143 H 74-106 mg/dL Lactic Acid Level 0.8 0.4-2.0 mmol/L Calcium Level 8.9 8.7-10.4 mg/dL SEPSIS Sepsis Screen Date sepsis recognized/suspect: Dec 13, 2024 Time Sepsis recognized/suspect: 1042 Recent Procedure: Yes On Antibiotic Therapy: Yes Respiratory Rate >20: No Heart Rate >90: Yes Temp<36 C (96.8 F) or >38.3 C: No SBP <90 or MAP <65 mmHG: No New Acute Mental Status Change: No Is the patient on CPAP, BIPAP,: No Physician Orders Wound Culture W/ Gs (12/13/24 10:51) Heplock Iv (12/13/24 ) Sodium Chloride 0.9% (12/13/24 11:45) Chest Portable (12/13/24 11:58) Code Status (12/13/24 16:33) Ondansetron Hcl (Zofran) (12/13/24 16:45) Enoxaparin Sodium (Lovenox) (12/14/24 10:00) Condition: Unstable (12/13/24 16:33) Acetaminophen Tablet (Tylenol Tablet) (12/13/24 16:45) Stat Ekg For Chest Pain (12/13/24 16:33) PTPTT (12/13/24 16:37) *Podiatry Consult Jennifer([facility]) (12/13/24 16:37) Admit (12/13/24 16:41) L Foot 2 View Xray (12/13/24 16:41) Wound Culture W/ Gs (12/13/24 16:41) Wound Dressing: BID (12/13/24 16:41) Lactic Acid W/ Reflex Order (12/13/24 16:41) Blood Culture (12/13/24 16:41) Erythrocyte Sedimentation Rate (12/13/24 16:41) C-Reactive Protein (12/13/24 16:41) Insulin Lantus (Glargine) (Lantus) (12/13/24 22:00) Insulin Lispro (Human) (Humalog) (12/13/24 17:00) Vancomycin Per Pharmacy (12/13/24 17:00) Vancomycin 1gm/250ml Kit (12/13/24 17:00) Ct L Foot Wo Contrast (12/13/24 16:51) Hydrocodone-Acet 5/325mg Tab (Burton 5/32 (12/13/24 17:00) Pantoprazole (Protonix) (12/14/24 10:00) Mrsa Screen (12/13/24 16:51) Sodium Chloride 0.9% (12/13/24 17:00) Cefepime 2gm/50ml Ns (Maxipime 2gm/50ml) (12/13/24 17:15) Cefepime 2gm/50ml Ns (Maxipime 2gm/50ml) (12/14/24 02:00) Metronidazole 500mg/100ml (Flagyl 500mg/ (12/13/24 18:30) Metronidazole 500mg/100ml (Flagyl 500mg/ (12/14/24 01:00) Npo After Midnight (12/13/24 17:27) Npo (Nothing By Mouth) Diet (12/14/24 Breakfast) Consistent Carb(Ccho)Diabetes (12/13/24 Dinner) Vital Signs Date Time Temp Pulse Resp B/P (MAP) Pulse Ox O2 Delivery O2 Flow Rate FiO2 12/13/24 10:38 97.9 104 16 135/84 98 97.9 Laboratory Tests Test 12/13/24 10:55 Lactic Acid Level 0.8 mmol/L (0.4-2.0) White Blood Count 12.2 10^3/uL (4.4-10.8) H Medications Medications Dose Ordered Sig/Nadir Route Start Time Stop Time Status Last Admin Dose Admin Cefazolin Sodium 50 ml @ 100 mls/hr ONCE ONCE IV 12/13/24 11:00 12/13/24 11:29 DC 12/13/24 14:57 100 MLS/HR Sodium Chloride 1,000 ml @ 1,000 mls/hr Q1H ONCE IV 12/13/24 11:45 12/13/24 12:44 DC 12/13/24 14:57 1,000 MLS/HR Assessment/Plan Assessment/Plan # sepsis due to severe infected left foot diabetic wound - Na Cl 0.9% IV once to 50 mL and 500 mL once - urine test negative - CT of left foot without contrast, pending - NPO except for medication - PT/PTT - wound culture /Gram stain - Wound dressing b.i.d. - Blood Culture - lactic acid levels - ESR, CRP - iv metronidazole 500 mg Q 8 scheduled - IV cefepime 2 g Q 8 scheduled - IV vancomycin once and as per pharmacy scheduled - pain management with acetaminophen 625 mg for mild pain and hydrocodone 5/325 mg q.4 PRN - diabetic diet, NPO after midnight - podiatry consult placed, pending # uncontrolled type 2 diabetes mellitus -A1c on 11/20/2024 was 12.1 -insulin Lantus 30 units HS -insulin mild sliding scale #Marijuana use disorder -counseled the patient for 16 minutes on marijuana use disorder GI prophylaxis: Protonix 40 mg IV daily DVT prophylaxis: Lovenox 40 mg subcutaneous daily Diet: diabetic diet, NPO after midnight Goals of care discussed with the patient for 20 minutes: Full code status Case discussed with Dr. Martinez, patient and nurse. Plan discussed with: Patient, Other (rn) My Orders Orders - JALEEL FERGUSON RESIDENT Procedure Category Date Status Time Code Status CODE 12/13/24 Transmitted 16:33 Ondansetron Hcl PHA 12/13/24 In Process (Zofran) 16:45 Enoxaparin Sodium PHA 12/14/24 In Process (Lovenox) 10:00 Condition: Unstable PA 12/13/24 In Process 16:33 Acetaminophen Tablet PHA 12/13/24 In Process (Tylenol Tablet) 16:45 Stat Ekg For Chest PA 12/13/24 In Process Pain 16:33 PTPTT LAB 10/17/25 Logged 16:37 *Podiatry Consult CONS 12/13/24 Transmitted Musson([facility]) 16:37 Admit ADMIT 12/13/24 Transmitted 16:41 L Foot 2 View Xray XY 12/13/24 Taken 16:41 Wound Culture W/ Gs KRISTIAN 12/13/24 Uncollected 16:41 Wound Dressing: PA 12/13/24 In Process 16:41 Lactic Acid W/ Reflex LAB 12/13/24 Logged Order 16:41 Blood Culture KRISTIAN 12/13/24 Uncollected 16:41 Erythrocyte LAB 12/13/24 Logged Sedimentation Rate 16:41 C-Reactive Protein LAB 12/13/24 Logged 16:41 Insulin Lantus PHA 12/13/24 In Process (Glargine) (Lantus) 22:00 Vancomycin Per PHA 12/13/24 Pending Pharmacy 17:00 Vancomycin 1gm/250ml PHA 12/13/24 In Process Kit 17:00 Ct L Foot Wo Contrast CT 12/13/24 Taken 16:51 Hydrocodone-Acet PHA 12/13/24 In Process 5/325mg Tab (Burton 17:00 Pantoprazole PHA 12/14/24 In Process (Protonix) 10:00 Mrsa Screen KRISTIAN 12/13/24 Uncollected 16:51 Sodium Chloride 0.9% PHA 12/13/24 In Process 17:00 Cefepime 2gm/50ml Ns PHA 12/13/24 In Process (Maxipime 2gm/50ml) 17:15 Cefepime 2gm/50ml Ns PHA 12/14/24 In Process (Maxipime 2gm/50ml) 02:00 Metronidazole PHA 12/13/24 In Process 500mg/100ml (Flagyl 18:30 Metronidazole PHA 12/14/24 In Process 500mg/100ml (Flagyl 01:00 Npo After Midnight PA 12/13/24 In Process 17:27 Npo (Nothing By DIET 12/14/24 Transmitted Mouth) Diet Breakfast Consistent DIET 12/13/24 Transmitted Carb(Ccho)Diabetes Dinner Date of Service: Dec 13, 2024 Billing Provider: MACI MARTINEZ MD Common Visit Codes: 82480-[id number] INP/OBS CARE (HIGH) Secondary Visit Codes: 86317-NCMQI CHNG SMOKING >10MIN (16 minutes for marijuana use cessation), [id number] CARE PLAN 30 MINUTES (20 minutes) JALEEL FERGUSON Dec 13, 2024 17:33 MACI MARTINEZ MD Dec 16, 2024 12:30
[2024-12-13] MEDS: SODIUM CHLORIDE 0.9% 500 ML IV ONE (17:37)
[2024-12-13] MEDS: PANTOPRAZOLE 40 MG/10 ML VIAL INJ IV ONE (17:37)
--- NOTE | 2024-12-13 17:41 | DVH ---
CLINICAL INDICATION: eval for osteomylitis TECHNIQUE: 2 radiographic views of the left foot were obtained. Comparison: XY L FOOT 3 VIEW XRAY on DOS: 11/20/24 FINDINGS/IMPRESSION: Soft tissue swelling is noted over the metatarsal phalangeal joints of the left foot. Osteoporotic changes of the heads of the 2nd 3rd 4th and 5th metatarsals. There appears to be gas in the surrounding tissues of the metatarsal phalangeal joints of the 2nd and 3rd digits. Findings are worrisome for osteomyelitis consider MRI for further evaluation.
[2024-12-13] MEDS: INSULIN LISPRO (HUMAN) 100 UNITS/ML ML SC SCH (18:09)
[2024-12-13] MEDS: CEFEPIME 2GM/50ML NS 50 ML IV ONE (18:15)
[2024-12-13 18:23] VITALS: PULSE 100; RESP 19; O2SAT 100
[2024-12-13 18:30] LABS: INR 1.07 (0.9-1.15); Partial Thromboplastin Time 30.0 SEC (24.5-34.5); Prothrombin Time 11.3 sec (9.3-11.8)
--- NOTE | 2024-12-13 20:47 | DVH ---
EXAMINATION: CT CT L FOOT WO CONTRAST INDICATION: eval for osteomylitis. Pain and swelling. COMPARISON: XY L FOOT 2 VIEW XRAY on DOS: 12/13/24, XY L FOOT 3 VIEW XRAY on DOS: 11/20/24 TECHNIQUE: CT of the rightleft foot was performed without contrast. Volume transverse images were obt ained reconstructed in multiple planes using bone and soft tissue algorithms. Radiation: CTDIvol 7.75 mGy; FINDINGS: Extensive soft tissue gas along the plantar aspect of the forefoot most pronounced surrounding the 3r d digit and 3rd MTP joint. Air is seen within the 3rd proximal phalanx. Erosive changes at the 2nd through 4th metatarsal heads. Erosive changes at the base of the 2nd and 4th proximal phalanges. IMPRESSION: Extensive soft tissue gas throughout the forefoot and air in the 3rd proximal phalanx concerning for infection with osteonecrosis. Erosive changes at the 2nd through 4th metatarsal heads as well as at the 2nd and 4th proximal phalan ges suggesting osteomyelitis.
[2024-12-13 21:00] VITALS: BP 125/79; PULSE 95; RESP 17; TEMP 98.1; O2SAT 98
[2024-12-13] MEDS: INSULIN LANTUS (GLARGINE) 1 /0.01ml (100units/ml) SC SCH (22:00)
[2024-12-14] VITALS (7 sets, daily range): BP systolic 112–128; BP diastolic 70–82; PULSE 90–95; RESP 18–20; TEMP 97.8–98.9; O2SAT 96–99
[2024-12-14] MEDS: VANCOMYCIN 1GM/250ML KIT 250 ML IV ONE (00:28)
[2024-12-14] MEDS: CEFEPIME 2GM/50ML NS 50 ML IV SCH ×2 (04:11→12:15)
[2024-12-14 05:18] LABS: Hematocrit 26.7 % (36.0-46.0); Hemoglobin 9.3 g/dL (12.2-16.2); Mean Corpuscular Hemoglobin 28.2 pg (28.0-32.0); Mean Corpuscular Volume 81.2 fL (80.0-100.0); Nucleated Red Blood Cells % 0.1 %
[2024-12-14 05:58] LABS: Anion Gap 9 (5-15); Calcium 9.2 mg/dL (8.7-10.4); Carbon Dioxide 25 mmol/L (20-31)
[2024-12-14 06:03] LABS: BUN/Creatinine Ratio 34.0 (10.0-20.0); Blood Urea Nitrogen 18 mg/dL (9-23)
[2024-12-14 06:16] LABS: Chloride 105 mmol/L (98-107); Glucose 161 mg/dL (74-106); Potassium 3.9 mmol/L (3.5-5.1); Sodium 139 mmol/L (136-145)
[2024-12-14] MEDS: PANTOPRAZOLE 40 MG/10 ML VIAL INJ IV SCH (09:53)
[2024-12-14] MEDS: ENOXAPARIN SOD 40 MG/0.4 ML SYRINGE SC SCH (09:54)
--- NOTE | 2024-12-14 11:45 | DVHPNRES ---
Progress Note Date Seen: Dec 14, 2024 Resident Creating Document: JALEEL FERGUSON RESIDENT Has the PT tested + for MRSA If YES, has PT been informed?: No Medical Necessity Reason Pt with a Central, PICC or Fol: Yes The following are medically ne: PICC Line Subjective Review of Systems 28-year-old female Kyree Julian with past medical history of type 2 diabetes for the past 13 years presented to the emergency department with complaints of infected wound of the left foot. Patient states that she was admitted on 11/20/2024 to this facility because she had a callus on her foot which she picked, that began to bleed and got infected with pus oozing out. She was admitted by Dr. Rodriguez/podiatry and he performed incision and drainage procedures on her 3 times during her stay at the hospital. Patient reports she was sent home with a PICC line and medication antibiotic Ancef. She had home health, and wound was cleaned last on Monday. Today she reports that she went for a follow up appointment with her learning design specialist, Dr. Rodriguez who instructed her to go to the ED again for admission for another debridement procedure on her left foot. Patient denies any fever, chills, shortness of breath, chest pain, abdominal pain, nausea, vomiting, headache or any other complaints. on inquiry the patient states that she has had type 2 diabetes for the past 13 years and has been noncompliant to her insulin medication and metformin for the past 5 years because she suffers from depression. On inquiry she has no suicidal ideation or plan now but reports she had it in her last hospitalization. Patient states that she has been to her PCP who has referred her to a behavioral health specialist. Patient reports that she has been compliant with metformin 500 mg, Lantus 30 mg HS and Ancef medication daily for the past 2 weeks. She states that her blood glucose levels have been good and today it was 107 in the morning. Patient is septic on admission with a heart rate of 98 and WBC of 12.2 with a source of infection being her left foot wound. We are admitting her for further workup. past medical history: As stated above Past surgical history: Incision and drainage of the same wound on her left leg 3 times in the last hospitalization Family history: Father's mother and sister had diabetes, patient's brother has diabetes type 2 as well social history: Patient denies smoking, drinking alcohol or using any other illicit drugs now. Patient admits she used to smoke marijuana heavily for 10 years and stopped 3 weeks ago when she got hospitalized home medications: Ancef via PICC line, metformin 500 mg, Lantus 30 HS allergies: None ROS: 12/14/2024: Patient was seen and examined by me at the bedside today. All charts and lab work were reviewed. Dr. Rodriguez let us know that the surgery would happen on Monday and to keep the patient NPO from Monday midnight. We put the patient back on diabetic diet as she was NPO before. We added Maalox as the patient complained of burning sensation in the abdomen Objective vital signs Vital Sign Date Time Temp Pulse Resp B/P (MAP) Pulse Ox O2 Delivery O2 Flow Rate FiO2 12/14/24 09:00 98.3 95 18 128/82 (97) 99 98.3 12/14/24 02:22 Room Air* 0 21 Total Intake and Output 12/13/24 12/13/24 12/14/24 15:00 23:00 07:00 Intake Total 1550 ml 220 ml Balance 1550 ml 220 ml medications Current Medications Medications Dose Ordered Sig/Nadir Route Start Time Stop Time Status Last Admin Dose Admin Ondansetron HCl 4 mg Q4HP PRN IV 12/13/24 16:45 Enoxaparin Sodium 40 mg DAILY SC 12/14/24 10:00 12/14/24 09:54 40 MG Acetaminophen 650 mg Q6HP PRN PO 12/13/24 16:45 Insulin Glargine 30 units HS SC 12/13/24 22:00 Insulin Human Lispro AC SC 12/13/24 17:00 Metronidazole 100 ml @ 100 mls/hr Q8H IV 12/14/24 01:00 12/14/24 09:48 100 MLS/HR Vancomycin HCl 0 ml @ 0 mls/hr UD IV 12/13/24 17:00 Acetaminophen/ Hydrocodone Bitart 1 tab Q4HPRN PRN PO 12/13/24 17:00 Pantoprazole Sodium 40 mg DAILY IV 12/14/24 10:00 12/14/24 09:53 40 MG Cefepime HCl 50 ml @ 12.5 mls/hr Q8H IV 12/14/24 12:15 Vancomycin HCl 250 ml @ 200 mls/hr Q8H IV 12/14/24 16:00 Examination General Appearance: Alert, Oriented X3, Cooperative, Not in acute distress HEENT: Atraumatic, Mucous membranes moist/pink Respiratory: Clear to auscultation, Normal air movement, No added sounds Cardiovascular: Regular rate, Normal S1, Normal S2, No murmurs Abdominal: Active bowel sounds, Soft, no distention, no tenderness Extremities: Present soft wet wound on the 4th metatarsal measuring 0.5 x3 cm on the dorsal as well as the plantar surface of the left foot, Oozing slightly, foul-smelling. Presence of blackish discoloration of the 4th toe on the left leg Skin: No Significant rash, except past surgical scars Neuro: Normal speech, sensorimotor deficits none Psych/Mental Status: Mental status NL, Mood NL Nurse was there as diabetes nurse during examination laboratory and microbiology Laboratory Tests 12/14/24 04:51 Test 12/14/24 04:51 Range/Units Serum Glucose 161 H 74-106 mg/dL Microbiology Date/Time Source Procedure Growth Status 12/13/24 11:00 Foot Left Gram Stain Pending Resulted 12/13/24 11:00 Foot Left Wound Culture - Preliminary Resulted Labs and/or images reviewed: Labs reviewed by me, Image(s) reviewed by me Problem List/Assessment/Plan Problem List/Assessment/Plan # Severe infected left foot diabetic wound - Na Cl 0.9% IV once to 50 mL and 500 mL once - urine test negative - PT/PTT normal - wound culture /Gram stain - Wound dressing b.i.d. - Blood Culture - lactic acid levels 0.8> 1.1, normal - ESR, CRP- 3.51 elevated - iv metronidazole 500 mg Q 8 scheduled - IV cefepime 2 g Q 8 scheduled - IV vancomycin once and as per pharmacy scheduled - pain management with acetaminophen 625 mg for mild pain and hydrocodone 5/325 mg q.4 PRN -x-ray of the foot shows: soft tissue swelling over the metatarsophalangeal joint of the left foot, osteoporotic changes of the head of the 2nd, 3rd, 4th and 5th metatarsals. There appears to be gas in the surrounding tissues of the metatarsophalangeal joints of the 2nd and 3rd digits. Findings are worrisome for osteomyelitis consider for MRI for further evaluation. - CT of the left foot without contrast shows: extensive soft tissue gas throughout the forefoot and air in the 3rd proximal phalanx concerning for infection with osteonecrosis. Erosive changes of the 2nd through 4th metatarsal heads as well as at the 2nd and 4th proximal phalanges suggesting osteomyelitis. - podiatry consult placed, pending notes, Dr. Rodriguez informed that the patient would be undergoing surgery on Monday and to keep NPO after midnight on Monday - diabetic diet # uncontrolled type 2 diabetes mellitus -A1c on 11/20/2024 was 12.1 -insulin Lantus 30 units HS -insulin mild sliding scale # possible GERD -Protonix 40 mg IV daily -Maalox 15 mL Q8H # marijuana use disorder -counseled on cessation GI prophylaxis: Protonix 40 mg IV daily DVT prophylaxis: Lovenox 40 mg subcutaneous daily Diet: diabetic diet Goals of care: Full code status Case discussed with Dr. Baugh, patient and nurse. Plan discussed with: Patient, Other (RN) My Orders My Orders Orders - JALEEL FERGUSON RESIDENT Procedure Category Date Status Time Code Status CODE 12/13/24 Transmitted 16:33 Ondansetron Hcl PHA 12/13/24 In Process (Zofran) 16:45 Enoxaparin Sodium PHA 12/14/24 In Process (Lovenox) 10:00 Condition: Unstable PA 12/13/24 In Process 16:33 Acetaminophen Tablet PHA 12/13/24 In Process (Tylenol Tablet) 16:45 Stat Ekg For Chest PA 12/13/24 In Process Pain 16:33 *Podiatry Consult CONS 12/13/24 Transmitted Jennifer([facility]) 16:37 Admit ADMIT 12/13/24 Transmitted 16:41 L Foot 2 View Xray XY 12/13/24 Resulted 16:41 Wound Culture W/ Gs KRISTIAN 12/13/24 Uncollected 16:41 Wound Dressing: PA 12/13/24 In Process 16:41 Blood Culture KRISTIAN 12/13/24 In Process 17:59 Insulin Lantus PHA 12/13/24 In Process (Glargine) (Lantus) 22:00 Vancomycin Per PHA 12/13/24 In Process Pharmacy 17:00 Ct L Foot Wo Contrast CT 12/13/24 Resulted 16:51 Hydrocodone-Acet PHA 12/13/24 In Process 5/325mg Tab ([employer] 17:00 Pantoprazole PHA 12/14/24 In Process (Protonix) 10:00 Mrsa Screen KRISTIAN 12/14/24 In Process 02:30 Metronidazole PHA 12/14/24 In Process 500mg/100ml (Flagyl 01:00 Npo After Midnight PA 12/13/24 In Process 17:27 Soc Telemed Psych CONS 12/13/24 Transmitted Consult 23:40 Cefepime 2gm/50ml Ns PHA 12/14/24 In Process (Maxipime 2gm/50ml) 12:15 Consistent DIET 12/14/24 Transmitted Carb(Ccho)Diabetes Lunch Vancomycin 1gm/250ml PHA 12/14/24 In Process Kit 16:00 Complete Blood Count LAB 12/15/24 Verified 04:00 Creatinine LAB 12/15/24 Verified 04:00 Vancomycin,Trough LAB 12/15/24 Verified 15:00 Vancomycin Per PA 12/14/24 In Process Pharmacy Protoc 16:00 Date of Service: Dec 14, 2024 Billing Provider: MACI BAUGH MD Common Visit Codes: [id number] INP/OBS CARE(HIGH) Addendum Addendum Addendum I was physically present for the ponce portions of the service provided to patient by THE RESIDENT. I have reviewed the documentation, discussed the case with resident and agree with the resident's documentation except as noted. Also the patient's clinical case was discussed with the patient's nurse. This medical document was created using an electronic medical record system with computerized dictation system. Although this document has been carefully reviewed, there might still be some phonetic and typographical errors. These areas are purely typographical due to imperfections of the software programs, and do not reflect any compromise in the patient's medical care. Late signature. JALEEL FERGUSON RESIDENT Dec 14, 2024 11:45 MACI BAUGH MD Dec 16, 2024 12:33
[2024-12-14] MEDS ORDERED: MAALOX PLUS or MAALOX 30 ML PO PRN (13:45)
[2024-12-14] MEDS: VANCOMYCIN 1GM/250ML KIT 250 ML IV SCH (16:22)
[2024-12-14] MEDS: ACETAMINOPHEN 325 MG TAB PO PRN (20:41)
[2024-12-15 01:00] VITALS: BP 116/81; PULSE 90; RESP 19; TEMP 98.5; O2SAT 99
[2024-12-15 05:00] VITALS: BP 120/78; PULSE 90; RESP 19; TEMP 98.7; O2SAT 99
[2024-12-15 05:41] LABS: Hemoglobin 7.1 g/dL (12.2-16.2); Nucleated Red Blood Cells % 0.1 %
[2024-12-15 05:43] LABS: Hematocrit 20.2 % (36.0-46.0); Mean Corpuscular Hemoglobin 28.5 pg (28.0-32.0); Mean Corpuscular Volume 81.4 fL (80.0-100.0)
[2024-12-15 05:55] LABS: Anion Gap 7 (5-15); Carbon Dioxide 27 mmol/L (20-31); Chloride 105 mmol/L (98-107); Potassium 3.6 mmol/L (3.5-5.1); Sodium 139 mmol/L (136-145)
[2024-12-15 05:56] LABS: Calcium 8.8 mg/dL (8.7-10.4)
[2024-12-15 06:01] LABS: BUN/Creatinine Ratio 26.5 (10.0-20.0); Blood Urea Nitrogen 13 mg/dL (9-23)
[2024-12-15 06:13] LABS: Glucose 143 mg/dL (74-106)
[2024-12-15 08:30] VITALS: BP 126/70; PULSE 92; RESP 16; TEMP 98.8; O2SAT 99
[2024-12-15] MEDS ORDERED: HYDROcodone-ACET 5/325MG TAB PO PRN (11:15)
--- NOTE | 2024-12-15 11:44 | DVHPNRES ---
Progress Note Date Seen: Dec 15, 2024 Resident Creating Document: AMBER NARANJO RESIDENT Has the PT tested + for MRSA If YES, has PT been informed?: No Medical Necessity Reason Pt with a Central, PICC or Fol: Yes The following are medically ne: PICC Line Subjective Review of Systems 28-year-old female Kyree Julian with past medical history of type 2 diabetes for the past 13 years presented to the emergency department with complaints of infected wound of the left foot. Patient states that she was admitted on 11/20/2024 to this facility because she had a callus on her foot which she picked, that began to bleed and got infected with pus oozing out. She was admitted by Dr. Rodriguez/podiatry and he performed incision and drainage procedures on her 3 times during her stay at the hospital. Patient reports she was sent home with a PICC line and medication antibiotic Ancef. She had home health, and wound was cleaned last on Monday. Today she reports that she went for a follow up appointment with her fuel cell test engineer, Dr. Rodriguez who instructed her to go to the ED again for admission for another debridement procedure on her left foot. Patient denies any fever, chills, shortness of breath, chest pain, abdominal pain, nausea, vomiting, headache or any other complaints. on inquiry the patient states that she has had type 2 diabetes for the past 13 years and has been noncompliant to her insulin medication and metformin for the past 5 years because she suffers from depression. On inquiry she has no suicidal ideation or plan now but reports she had it in her last hospitalization. Patient states that she has been to her PCP who has referred her to a behavioral health specialist. Patient reports that she has been compliant with metformin 500 mg, Lantus 30 mg HS and Ancef medication daily for the past 2 weeks. She states that her blood glucose levels have been good and today it was 107 in the morning. Patient is septic on admission with a heart rate of 98 and WBC of 12.2 with a source of infection being her left foot wound. We are admitting her for further workup. past medical history: As stated above Past surgical history: Incision and drainage of the same wound on her left leg 3 times in the last hospitalization Family history: Father's mother and sister had diabetes, patient's brother has diabetes type 2 as well social history: Patient denies smoking, drinking alcohol or using any other illicit drugs now. Patient admits she used to smoke marijuana heavily for 10 years and stopped 3 weeks ago when she got hospitalized home medications: Ancef via PICC line, metformin 500 mg, Lantus 30 HS allergies: None 12/14/2024: Patient was seen and examined by me at the bedside today. All charts and lab work were reviewed. Dr. Rodriguez and let us know that the surgery would happen on Monday and to keep the patient NPO from Monday midnight. We put the patient back on diabetic diet as she was NPO before. We added Maalox as the patient complained of burning sensation in the abdomen 12/15/2024- Patient was seen today at bedside, labs and chart reviewed. Hemoglobin 7.1, ordered repeat H&H in the evening. Blood culture no growth so far. Wound culture Gram-positive bakari, MRSA screening negative. Patient with left foot wound on the dorsum and plantar surface and also blackish discoloration in the 3rd toe. CT scan of the Extensive soft tissue gas throughout the forefoot and air in the 3rd proximal phalanx concerning for infection with osteonecrosis. Erosive changes at the 2nd through 4th metatarsal heads as well as at the 2nd and 4th proximal phalanges suggesting osteomyelitis. Spoke to Dr. Mcmahan Podiatry and also send him the CT scan report of the left foot for possible necrotizing fascitis. Podiatry recommended for NPO after midnight, surgery tomorrow. Ordered clindamycin IV. We will continue other current management. Objective vital signs Vital Sign Date Time Temp Pulse Resp B/P (MAP) Pulse Ox O2 Delivery O2 Flow Rate FiO2 12/15/24 08:30 98.8 92 16 126/70 (88) 99 98.8 12/14/24 02:22 Room Air* 0 21 Total Intake and Output 12/14/24 12/14/24 12/15/24 15:00 23:00 07:00 Intake Total 150 ml 940 ml 2050 ml Balance 150 ml 940 ml 2050 ml medications Current Medications Medications Dose Ordered Sig/Nadir Route Start Time Stop Time Status Last Admin Dose Admin Ondansetron HCl 4 mg Q4HP PRN IV 12/13/24 16:45 Enoxaparin Sodium 40 mg DAILY SC 12/14/24 10:00 12/15/24 10:40 40 MG Acetaminophen 650 mg Q6HP PRN PO 12/13/24 16:45 12/14/24 20:41 650 MG Insulin Glargine 30 units HS SC 12/13/24 22:00 12/14/24 22:21 30 UNITS Insulin Human Lispro AC SC 12/13/24 17:00 12/14/24 16:36 1 UNITS Vancomycin HCl 0 ml @ 0 mls/hr UD IV 12/13/24 17:00 Pantoprazole Sodium 40 mg DAILY IV 12/14/24 10:00 12/15/24 10:39 40 MG Cefepime HCl 50 ml @ 12.5 mls/hr Q8H IV 12/14/24 12:15 12/15/24 04:15 12.5 MLS/HR Vancomycin HCl 250 ml @ 200 mls/hr Q8H IV 12/14/24 16:00 12/15/24 09:09 200 MLS/HR Al Hydrox/Mg Hydrox/Simethicone 15 ml Q8HP PRN PO 12/14/24 13:45 Clindamycin Phosphate 50 ml @ 50 mls/hr Q8H IV 12/15/24 20:00 Acetaminophen/ Hydrocodone Bitart 1 tab Q6HPRN PRN PO 12/15/24 11:45 UNV Examination General Appearance: Alert, Oriented X3, Cooperative, Not in acute distress HEENT: Atraumatic, Mucous membranes moist/pink Respiratory: Clear to auscultation, Normal air movement, No added sounds Cardiovascular: Regular rate, Normal S1, Normal S2, No murmurs Abdominal: Active bowel sounds, Soft, no distention, no tenderness Extremities: Present soft wet wound on the 4th metatarsal measuring 0.5 x3 cm on the dorsal as well as the plantar surface of the left foot, Oozing slightly, foul-smelling. Presence of blackish discoloration of the 4th toe on the left leg Skin: No Significant rash, except past surgical scars Neuro: Normal speech, sensorimotor deficits none Psych/Mental Status: Mental status NL, Mood NL Nurse was there as express manager during examination laboratory and microbiology Laboratory Tests 12/15/24 05:12 Test 12/15/24 05:12 Range/Units Serum Glucose 143 H 74-106 mg/dL Microbiology Date/Time Source Procedure Growth Status 12/14/24 02:30 Nose MRSA Screen - Final Complete 12/13/24 18:18 Blood Blood Culture - Preliminary NO GROWTH AFTER 24 HOURS OF INCUBATION. Resulted Labs and/or images reviewed: Labs reviewed by me, Image(s) reviewed by me Problem List/Assessment/Plan Problem List/Assessment/Plan Assessment and plan # sepsis likely due to infected left foot wound/necrotizing fascitis # Severe infected left foot diabetic wound # suspected necrotizing fasciitis of the left foot -- CT of the left foot without contrast shows: extensive soft tissue gas throughout the forefoot and air in the 3rd proximal phalanx concerning for infection with osteonecrosis. Erosive changes of the 2nd through 4th metatarsal heads as well as at the 2nd and 4th proximal phalanges suggesting osteomyelitis. -spoke to Podiatry Dr. Mcmahan regarding possible necrotizing fascitis along with a CT scan of the left foot report. Dr. Rodriguez informed that the patient would be undergoing surgery on Monday and to keep NPO after midnight on Monday. -x-ray of the foot shows: soft tissue swelling over the metatarsophalangeal joint of the left foot, osteoporotic changes of the head of the 2nd, 3rd, 4th and 5th metatarsals. There appears to be gas in the surrounding tissues of the metatarsophalangeal joints of the 2nd and 3rd digits. Findings are worrisome for osteomyelitis -blood culture negative so far -wound culture Gram-positive bakari so far - urine test negative - PT/PTT normal - Wound dressing as prescribed - iv metronidazole 500 mg Q 8 scheduled - IV cefepime 2 g Q 8 scheduled - IV vancomycin as per pharmacy scheduled -continue clindamycin IV as prescribed -low carb diet # uncontrolled type 2 diabetes mellitus -A1c on 11/20/2024 was 12.1 -insulin Lantus 30 units HS -insulin mild sliding scale # possible GERD -Protonix 40 mg p.o. daily -Maalox 15 mL Q8H # marijuana use disorder -counseled on cessation GI prophylaxis: Protonix DVT prophylaxis: Lovenox Diet: diabetic diet, NPO after midnight on Monday Goals of care: Full code status Case discussed with Dr. Baugh, patient and nurse. Plan discussed with: Patient, Other (RN) Dietary Evaluation Review Recommendations by RD: Dietary education by RD, Protein Supplementation Comments: 1) Initiate MVI @ 1 tb qd 2) Initiate Khanh @ 1 pk bid 3) Initiate vitamin C @ 500 mg bid and zinc sulfate @ 220 mg qd for 7 days 4) Refer to outpatient RD/[facility] for diabetes education 5) Follow-up with podiatry 6) Continue to monitor I&O, labs, and skin integrity Expected Outcomes/Goals: 1) appetite and labs to improve 2) wound to improve 3) gradual wt loss 4) f/u in 3-5 days Addendum Addendum Addendum I was physically present for the ponce portions of the service provided to patient by THE RESIDENT. I have reviewed the documentation, discussed the case with resident and agree with the resident's documentation except as noted. Also the patient's clinical case was discussed with the patient's nurse. This medical document was created using an electronic medical record system with computerized dictation system. Although this document has been carefully reviewed, there might still be some phonetic and typographical errors. These areas are purely typographical due to imperfections of the software programs, and do not reflect any compromise in the patient's medical care. Late signature. Date of Service: Dec 15, 2024 Billing Provider: MACI BAUGH MD Common Visit Codes: [id number] INP/OBS CARE(HIGH) AMBER NARANJO RESIDENT Dec 15, 2024 11:44 MACI BAUGH MD Dec 16, 2024 12:34
[2024-12-15] MEDS: CLINDAMYCIN 900MG IV 50 ML IV ONE (12:02)
[2024-12-15 12:34] VITALS: BP 124/82; PULSE 86; RESP 19; TEMP 98.8; O2SAT 100
[2024-12-15 17:01] VITALS: BP 135/77; PULSE 88; RESP 18; TEMP 97.7; O2SAT 97
[2024-12-15 17:15] LABS: Hematocrit 27.9 % (36.0-46.0); Hemoglobin 9.5 g/dL (12.2-16.2)
[2024-12-15] MEDS: CLINDAMYCIN 900MG IV 50 ML IV SCH (20:15)
[2024-12-15 21:05] VITALS: BP 121/81; PULSE 93; RESP 16; TEMP 98.9; O2SAT 98
[2024-12-16 01:00] VITALS: BP 121/82; PULSE 92; RESP 18; TEMP 98.1; O2SAT 100
[2024-12-16] MEDS: VANCOMYCIN 1GM/250ML KIT 250 ML IV SCH ×2 (02:04→17:58)
[2024-12-16 05:00] VITALS: BP 120/79; PULSE 94; RESP 18; TEMP 97.8; O2SAT 99
--- NOTE | 2024-12-16 07:55 | ECG ---
[facility] Test Date: 2024-12-15 Test Time: 18:29:28 Pat Name: MINA MALDONADO Department: Room: 0246 Gender: F Acoustic Intelligence Specialist: JAYDEN LOWE : 1995 Requested By: AMBER NARANJO Order Number: [id number] Reading MD: Jairo Abrams Measurements Intervals [place] Rate: 87 P: 26 [place]: 128 QRS: 66 QRSD: 76 T: 42 QT: 372 QTc: 448 Interpretive Statements Sinus rhythm RSR' in V1 or V2, probably normal variant Electronically Signed On 12-23-2024 15:20:49 PDT by Jairo Abrams Please click the below link to view image of tracing.
[2024-12-16 07:59] LABS: Hematocrit 26.7 % (36.0-46.0); Hemoglobin 9.1 g/dL (12.2-16.2); Mean Corpuscular Hemoglobin 28.5 pg (28.0-32.0); Mean Corpuscular Volume 83.5 fL (80.0-100.0); Nucleated Red Blood Cells % 0.1 %
[2024-12-16 08:19] LABS: Alanine Aminotransferase < 9 U/L (7-40); Alkaline Phosphatase 132 U/L (46-116); Anion Gap 11 (5-15); BUN/Creatinine Ratio 20.0 (10.0-20.0); Blood Urea Nitrogen 11 mg/dL (9-23); Calcium 8.7 mg/dL (8.7-10.4); Carbon Dioxide 25 mmol/L (20-31); Chloride 104 mmol/L (98-107); Glucose 98 mg/dL (74-106); Magnesium 1.9 mg/dL (1.6-2.6); Potassium 3.8 mmol/L (3.5-5.1); Sodium 140 mmol/L (136-145); Total Protein 7.1 g/dL (5.7-8.2)
[2024-12-16 08:20] LABS: Albumin 3.4 g/dL (3.2-4.8); Bilirubin, Total 0.6 mg/dL (0.2-1.0)
[2024-12-16 09:00] VITALS: BP 129/86; PULSE 89; RESP 17; TEMP 99.2; O2SAT 98
--- NOTE | 2024-12-16 12:07 | DVHCONRES ---
Date Seen: Dec 16, 2024 Reason for Consultation Right foot wound History of Present Illness 28-year-old female With past medical history of type 2 diabetes for the past 13 years presented to the emergency department with complaints of infected wound of the left foot. Patient states that she was admitted on 11/20/2024 to this facility because she had a callus on her foot which she picked, that began to bleed and got infected with pus oozing out. She was admitted by Dr. Jackson/podiatry and he performed incision and drainage procedures on her 3 times during her stay at the hospital. Patient reports she was sent home with a PICC line and medication antibiotic Ancef. She had home health, and wound was cleaned last on Monday. Today she reports that she went for a follow up appointment with her mdm sr, Dr. Jackson who instructed her to go to the ED again for admission for another debridement procedure on her left foot. Patient denies any fever, chills, shortness of breath, chest pain, abdominal pain, nausea, vomiting, headache or any other complaints. on inquiry the patient states that she has had type 2 diabetes for the past 13 years and has been noncompliant to her insulin medication and metformin for the past 5 years because she suffers from depression. On inquiry she has no suicidal ideation or plan now but reports she had it in her last hospitalization. Patient states that she has been to her PCP who has referred her to a behavioral health specialist. Patient reports that she has been compliant with metformin 500 mg, Lantus 30 mg HS and Ancef medication daily for the past 2 weeks. She states that her blood glucose levels have been good and today it was 107 in the morning. Patient is septic on admission with a heart rate of 98 and WBC of 12.2 with a source of infection being her left foot wound. We are admitting her for further workup. Past Medical History See H&P Past Surgical History See H&P Family History: FH: colon cancer FH: lung cancer Allergies: Coded Allergies: NO KNOWN ALLERGIES (Unverified , 11/20/24) Home Meds Active Scripts Blood Glucose Monitoring Suppl (D-Care Glucometer Kit/Glu W/Device) 1 Kit Kit, KIT XX BID, #1 Prov:MARCO AVILA NP 12/01/24 Lancets (Accu-Chek Softclix Lancet) Lancets Mis, BOX XX BID, #1 Prov:MARCO AVILA NP 12/01/24 Metformin Hydrochloride (Metformin Hcl) 500 Mg Tab, 1 TAB PO BID for 30 Days, #60 TAB 3 Refills Prov:MARCO AVILA NP 12/01/24 Insulin Glargine (Lantus) 100 Unit/Ml Inj, 30 UNIT SC HS for 30 Days, #5 INJ Please provide patient Lantus quick pen 30 units q.h.s.. Quantity five with two refills Prov:MARCO AVILA NP 12/01/24 Current Medications Current Medications Medications (Trade) Dose Ordered Sig/Nadir Route PRN Reason Start Time Stop Time Status Last Admin Clindamycin Phosphate 50 ml @ 50 mls/hr Q8H IV 12/15/24 20:00 12/16/24 03:33 Vancomycin HCl 250 ml @ 200 mls/hr Q8H IV 12/16/24 02:00 12/16/24 11:42 DC 12/16/24 09:00 Vancomycin HCl 250 ml @ 200 mls/hr Q8H IV 12/16/24 18:00 UNV Vital Signs Vital Signs Date Time Temp Pulse Resp B/P (MAP) Pulse Ox O2 Delivery O2 Flow Rate FiO2 12/16/24 09:00 99.2 89 17 129/86 (100) 98 99.2 12/16/24 08:00 Room Air* 0 21 Physical Exam Dermatological: Skin is dry with mild erythema and some maceration around the wound site No gross deformities noted Mild non-pitting edema present bilaterally Significant dorsal and plantar wound with purulent drainage carlie necrosis Vascular: Dorsalis pedis and posterior tibial pulses are 1+ bilaterally Capillary refill is under 2 seconds Skin temperature is warm bilaterally Neurologic: Protective sensation is absent on the plantar forefoot bilaterally Monofilament testing reveals decreased sensation in multiple plantar sites Musculoskeletal: Range of motion at the ankle and MTP joints is within normal limits. Strength is 5/5 in all tested muscle groups. Gait is antalgic due to offloading of the affected limb. Labs/Diagnostic Data Labs Test 12/16/24 10:46 12/16/24 05:58 12/15/24 14:59 12/14/24 04:51 Range/Units POC Glucose 99 70-106 mg/dl White Blood Count 6.6 4.4-10.8 10^3/uL Red Blood Count 3.19 L 4.0-5.20 10^6/uL Hemoglobin 9.1 L 12.2-16.2 g/dL Hematocrit 26.7 L 36.0-46.0 % Mean Corpuscular Volume 83.5 80.0-100.0 fL Mean Corpuscular Hemoglobin 28.5 28.0-32.0 pg Mean Corpuscular Hemoglobin Concent 34.2 32.0-36.0 g/dL Red Cell Distribution Width 13.7 11.8-14.3 % Platelet Count 389 140-450 10^3/uL Mean Platelet Volume 7.3 6.9-10.8 fL Neutrophils (%) (Auto) 70.7 37.0-80.0 % Lymphocytes (%) (Auto) 17.7 10.0-50.0 % Monocytes (%) (Auto) 9.6 0.0-12.0 % Eosinophils (%) (Auto) 1.4 0.0-7.0 % Basophils (%) (Auto) 0.6 0.0-2.0 % Neutrophils # (Auto) 4.6 1.6-8.6 10 ^3/uL Lymphocytes # (Auto) 1.2 0.4-5.4 10 ^3/uL Monocytes # (Auto) 0.6 0-1.3 10 ^3/uL Eosinophils # (Auto) 0.1 0-0.8 10 ^3/uL Basophils # (Auto) 0 0-0.2 10 ^3/uL Nucleated Red Blood Cells 0.1 % Sodium Level 140 136-145 mmol/L Potassium Level 3.8 3.5-5.1 mmol/L Chloride Level 104 98-107 mmol/L Carbon Dioxide Level 25 20-31 mmol/L Anion Gap 11 5-15 Blood Urea Nitrogen 11 9-23 mg/dL Creatinine 0.55 0.550-1.02 mg/dL Glomerular Filtration Rate Calc 126 >90 mL/min BUN/Creatinine Ratio 20.0 10.0-20.0 Serum Glucose 98 74-106 mg/dL Calcium Level 8.7 8.7-10.4 mg/dL Magnesium Level 1.9 1.6-2.6 mg/dL Total Bilirubin 0.6 0.2-1.0 mg/dL Aspartate Amino Transferase (AST) < 8 L 13-40 U/L Alanine Aminotransferase (ALT) < 9 7-40 U/L Alkaline Phosphatase 132 H 46-116 U/L Total Protein 7.1 5.7-8.2 g/dL Albumin 3.4 3.2-4.8 g/dL Vancomycin Level Trough 12.8 H 5-10 ug/mL Beta HCG, Quantitative < 1.5 L 1.5-4.2 mIU/mL Random Vancomycin Level 9.4 5-10 ug/mL Test 12/13/24 17:36 12/13/24 12:16 12/13/24 10:55 Range/Units Prothrombin Time 11.3 9.3-11.8 sec Prothrombin Time INR 1.07 0.9-1.15 Activated Partial Thromboplast Time 30.0 24.5-34.5 SEC Lactic Acid Level 1.1 0.4-2.0 mmol/L C-Reactive Protein High Sensitivity 3.51 H <1.0 mg/dL Urine Test Negative Negative Erythrocyte Sedimentation Rate 115 H 0-20 mm/hr Microbiology Date/Time Source Procedure Growth Status 12/14/24 02:30 Nose MRSA Screen - Final Complete 12/13/24 18:18 Blood Blood Culture - Preliminary NO GROWTH AFTER 48 HOURS OF INCUBATION. Resulted Problems(with codes): (1) Cellulitis of left foot (2) Diabetes mellitus (3) Diabetic ulcer of left foot (4) Failure of outpatient treatment Plan/Recommendation ASSESSMENT: Patient is a 28 year old seen on the floor for a worsening ulcer PLAN: - The patients chart was reviewed, clinical findings were discussed with the patient, the etiologies of the conditions were discussed in detail, and a treatment plan was agreed to at this time, with both oral and written inst ructions provided. - reviewed advanced imaging - discussed plan is to perform an incision and drainage - patient has been NPO since midnight - take her to the OR today - we will get cultures in the OR - can weightbear as tolerated in postoperative shoe All questions were answered and concerns addressed to the patient's satisfaction. The patient was given the phone number to the clinic and was told how to make contact with the clinic should any concerns or questions arise. Patient understands that if any questions or concerns arise prior to the next appointment, we should be contacted immediately. FOLLOW-UP: Continue to follow while inpatient Plan discussed with: Patient Visit Coding Podiatry Date of Service if different f: Dec 16, 2024 Billing Provider: DAIYS JACKSON DPM Podiatry Common Visit Codes: CONSULT ONLY DAISY JACKSON DPM Dec 16, 2024 12:07
[2024-12-16 13:00] VITALS: BP 128/83; PULSE 93; RESP 17; TEMP 99.4; O2SAT 99
[2024-12-16] MEDS: LIDOCAINE 1% HCL (LOCAL ANESTH.) INJ 20ML MDV IJ ONE (13:53)
--- NOTE | 2024-12-16 14:10 | DVHOP2 ---
Operative Report - 2 Report Details Date: 12/16/24 Preop Diagnosis: 1. Left foot necrotizing fasciitis 2. Left foot abscess 3. Left foot cellulitis 4. Left foot diabetic foot ulcer Postop Diagnosis: Same as preop Surgeon: Daisy Jackson MD Anesthesiologist: None Anesthesia: Local Consent: The patient was informed of the risks and benefits of the procedure. These include but are not limited to complications of anesthesia, postoperative infection, incomplete relief of symptoms, recurrence of symptoms, damage to blood vessels, nerves and tendons, deep venous thrombosis, pulmonary embolism and possible need for repeat surgery in the future. Complications: None Estimated Blood Loss: Minimal Findings: Consistent with diagnosis Indications for Surgery: Worsening foot wound Name of Procedure Performed 1. Left foot I&D to bone () 2. Left foot bone biopsy () Procedure Details Procedure Details: PRE-PROCEDURE INFORMATION: In the pre-op holding area, the extremity to be operated on was clearly marked and the patient verified correct laterality of the marking. The patient was transferred to the OR table and placed in a supine position. A timeout was performed in which identification of the correct patient, procedure, location, and materials was done. The left foot and leg were prepped and draped in normal sterile fashion. DESCRIPTION OF PROCEDURE: Attention was directed to the left dorsal and plantar foot where previous incision wound vein where area of fluctuance was noted. An incision was made over this area and was deepened through blunt dissection. The incision was deepened to the level of abscess and bone. Care was taken to the dissection to avoid any neurovascular and tendinous structures. The incision was deepened to the bone, and the abscess appeared to be purulent fluid consistent with pus. The cortices of the bone was then removed with rongeur an all necrotic tissue. Significant amount of necrotic tissue was removed. After the abscess was drained, the area was irrigated with 3 L normal saline using cysto tubing. Deep cultures were then obtained from the wound. The area was then inspected and any areas of tracking, especially along the tendons were also drained. The wound was packed with Betadine-soaked gauze and we will need to be closed at a later date. POSTOPERATIVE INFORMATION: The patient tolerated the above noted procedure and anesthesia well and was transferred to the PACU with vital signs stable, and vascular status intact with capillary refill intact to all digits. Deep cultures were taken. Patient will need multiple I and D's to be able to salvage the foot. We will see how the toe toes. Patient will need to continue IV antibiotics. Condition Good Disposition Still a Patient Visit Coding Podiatry Date of Service if different f: Dec 16, 2024 Billing Provider: DAISY JACKSON DPM Podiatry Common Visit Codes: PROCEDURE ONLY DAISY JACKSON DPM Dec 16, 2024 14:10
[2024-12-16] MEDS ORDERED: VANCOMYCIN 1GM/250ML KIT 250 ML IV SCH (15:30)
--- NOTE | 2024-12-16 15:33 | DVHPNRES ---
Progress Note Date Seen: Dec 16, 2024 Resident Creating Document: MONICA DE RESIDENT Has the PT tested + for MRSA If YES, has PT been informed?: No Medical Necessity Reason Pt with a Central, PICC or Fol: Yes The following are medically ne: PICC Line Subjective Review of Systems aMureen Jluian is a 28-year-old female with past medical history of type 2 diabetes for the past 13 years who presented to the emergency department with complaints of infected wound of the left foot. Patient states that she was admitted on 11/20/2024 to this facility because she had a callus on her foot which she picked, that began to bleed and got infected with pus oozing out. She was admitted by Dr. Rodriguez/podiatry and he performed incision and drainage procedures on her 3 times during her stay at the hospital. Patient reports she was sent home with a PICC line and medication antibiotic Ancef. She had home health, and wound was cleaned last on Monday. Today she reports that she went for a follow up appointment with her sheet metal smith, Dr. Rodriguez who instructed her to go to the ED again for admission for another debridement procedure on her left foot. Patient denies any fever, chills, shortness of breath, chest pain, abdominal pain, nausea, vomiting, headache or any other complaints. On inquiry the patient states that she has had type 2 diabetes for the past 13 years and has been noncompliant to her insulin medication and metformin for the past 5 years because she suffers from depression. On inquiry she has no suicidal ideation or plan now but reports she had it in her last hospitalization. Patient states that she has been to her PCP who has referred her to a behavioral health specialist. Patient reports that she has been compliant with metformin 500 mg, Lantus 30 mg HS and Ancef medication daily for the past 2 weeks. She states that her blood glucose levels have been good and today it was 107 in the morning. Patient is septic on admission with a heart rate of 98 and WBC of 12.2 with a source of infection being her left foot wound. We are admitting her for further workup. past medical history: As stated above Past surgical history: Incision and drainage of the same wound on her left leg 3 times in the last hospitalization Family history: Father's mother and sister had diabetes, patient's brother has diabetes type 2 as well social history: Patient denies smoking, drinking alcohol or using any other illicit drugs now. Patient admits she used to smoke marijuana heavily for 10 years and stopped 3 weeks ago when she got hospitalized home medications: Ancef via PICC line, metformin 500 mg, Lantus 30 HS allergies: None Patient seen and examined at bedside. Patient is alert and oriented to time, place person and responding to all questions. Eyes: No Pain, No Vision change, No Conjunctivae inflammation, No Eyelid inflammation, No Redness ENT: No Ear pain, No Ear discharge, No Nose pain, No Nose discharge, No Nose congestion, No Mouth pain, No Mouth swelling, No Throat pain, No Throat swelling Cardiovascular: No Chest Pain, No Palpitations, No Orthopnea, No Paroxysmal No Dyspnea, No Edema, No Lt Headedness Respiratory: No Cough, No Dry, No Shortness of breath, No SOB with exertion, No Wheezing, No Hemoptysis, No Pleuritic Pain, No Sputum Gastrointestinal: No Nausea, No Vomiting, No Abdominal Pain, No Diarrhea, No Constipation, No Melena, No Hematochezia Genitourinary: No Dysuria, No Frequency, No Incontinence, No Hematuria, No Retention 12/14/2024: Patient was seen and examined by me at the bedside today. All charts and lab work were reviewed. Dr. Rodriguez and let us know that the surgery would happen on Monday and to keep the patient NPO from Monday midnight. We put the patient back on diabetic diet as she was NPO before. We added Maalox as the patient complained of burning sensation in the abdomen 12/15/2024- Patient was seen today at bedside, labs and chart reviewed. Hemoglobin 7.1, ordered repeat H&H in the evening. Blood culture no growth so far. Wound culture Gram-positive bakari, MRSA screening negative. Patient with left foot wound on the dorsum and plantar surface and also blackish discoloration in the 3rd toe. CT scan of the Extensive soft tissue gas throughout the forefoot and air in the 3rd proximal phalanx concerning for infection with osteonecrosis. Erosive changes at the 2nd through 4th metatarsal heads as well as at the 2nd and 4th proximal phalanges suggesting osteomyelitis. Spoke to Dr. Mcmahan Podiatry and also send him the CT scan report of the left foot for possible osteonecrosi. Podiatry recommended for NPO after midnight, surgery tomorrow. Ordered clindamycin IV. We will continue other current management. 12/16/24- the patient was seen at bedside today. All labs and charts were reviewed. Clindamycin was discontinued and Rocephin 1 g daily was started. The patient underwent incision and drainage procedure with Podiatry today along with bone biopsy. Patient was asked to follow-up with infectious disease specialist in the outpatient. Next arterial study was ordered for the right leg. The patient was started on vitamin-D 19300 IU daily. fiscal services manager consult for home IV antibiotics was also placed. Possible discharge for tomorrow was discussed with the patient. Objective vital signs Vital Sign Date Time Temp Pulse Resp B/P (MAP) Pulse Ox O2 Delivery O2 Flow Rate FiO2 12/16/24 13:00 99.4 93 17 128/83 (98) 99 99.4 12/16/24 08:00 Room Air* 0 21 Total Intake and Output 12/15/24 12/15/24 12/16/24 15:00 23:00 07:00 Intake Total 300 ml 1580 ml 1150 ml Balance 300 ml 1580 ml 1150 ml medications Current Medications Medications Dose Ordered Sig/Nadir Route Start Time Stop Time Status Last Admin Dose Admin Ondansetron HCl 4 mg Q4HP PRN IV 12/13/24 16:45 Enoxaparin Sodium 40 mg DAILY SC 12/14/24 10:00 12/15/24 10:40 40 MG Acetaminophen 650 mg Q6HP PRN PO 12/13/24 16:45 12/14/24 20:41 650 MG Insulin Glargine 30 units HS SC 12/13/24 22:00 12/15/24 22:19 30 UNITS Insulin Human Lispro AC SC 12/13/24 17:00 12/15/24 11:50 2 UNITS Vancomycin HCl 0 ml @ 0 mls/hr UD IV 12/13/24 17:00 Pantoprazole Sodium 40 mg DAILY IV 12/14/24 10:00 12/16/24 09:00 40 MG Al Hydrox/Mg Hydrox/Simethicone 15 ml Q8HP PRN PO 12/14/24 13:45 Acetaminophen/ Hydrocodone Bitart 1 tab Q6HPRN PRN PO 12/15/24 11:45 Vancomycin HCl 250 ml @ 200 mls/hr Q8H IV 12/16/24 18:00 Ergocalciferol 50,000 unit Q7D PO 12/16/24 15:30 UNV Ceftriaxone Sodium 50 ml @ 100 mls/hr DAILY@09 IV 12/17/24 09:00 UNV Vancomycin HCl 250 ml @ 250 mls/hr Q12H IV 12/16/24 15:30 UNV Examination General Appearance: Alert, Oriented X3, Cooperative, Not in acute distress HEENT: Atraumatic, Mucous membranes moist/pink Respiratory: Clear to auscultation, Normal air movement, No added sounds Cardiovascular: Regular rate, Normal S1, Normal S2, No murmurs Abdominal: Active bowel sounds, Soft, no distention, no tenderness Extremities: Patient's left foot is covered in bandage post the procedure Skin: No Significant rash, except past surgical scars Neuro: Normal speech, sensorimotor deficits none Psych/Mental Status: Mental status NL, Mood NL Nurse was there as director of medicare during examination laboratory and microbiology Laboratory Tests 12/16/24 05:58 Test 12/16/24 05:58 Range/Units Serum Glucose 98 74-106 mg/dL Microbiology Date/Time Source Procedure Growth Status 12/14/24 02:30 Nose MRSA Screen - Final Complete 12/13/24 18:18 Blood Blood Culture - Preliminary NO GROWTH AFTER 48 HOURS OF INCUBATION. 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 Erosive changes of the 2nd through 4th metatarsal heads as well as at the 2nd and 4th proximal phalanges suggesting osteomyelitis. -x-ray of the foot shows: soft tissue swelling over the metatarsophalangeal joint of the left foot, osteoporotic changes of the head of the 2nd, 3rd, 4th and 5th metatarsals. There appears to be gas in the surrounding tissues of the metatarsophalangeal joints of the 2nd and 3rd digits. Findings are worrisome for osteomyelitis -blood culture negative so far -wound culture Gram-positive bakari on 12/13/24 -I&D done on 12/16/24 with bone biopsy - urine test negative - PT/PTT normal - Wound dressing as prescribed - IV vancomycin 1 gm q12 hrs -started on rocephin 1gm daily today -low carb diet -duplex arterial scan ordered -social sciences chair consult placed for home iv antibiotics # uncontrolled type 2 diabetes mellitus -A1c on 11/20/2024 was 12.1 -insulin Lantus 30 units HS -insulin mild sliding scale -patient conuseled on strict dietary and medication compliance # possible GERD -Protonix 40 mg p.o. daily -Maalox 15 mL Q8H # marijuana use disorder -counseled on cessation GI prophylaxis: Protonix DVT prophylaxis: Lovenox Goals of care: Full code, discussed for >20 minutes Plan discussed with Dr Mesa Plan discussed with: Patient, Other My Orders My Orders Orders - MONICA DE RESIDENT Procedure Category Date Status Time Ergocalciferol PHA 12/16/24 Logged (Vitamin D 50,000 15:30 Ss Consult To Arrange PA 12/16/24 In Process Home Iv 15:28 Dietary Evaluation Review Recommendations by RD: Dietary education by RD, Protein Supplementation Comments: 1) Initiate MVI @ 1 tb qd 2) Initiate Khanh @ 1 pk bid 3) Initiate vitamin C @ 500 mg bid and zinc sulfate @ 220 mg qd for 7 days 4) Refer to outpatient RD/[facility] for diabetes education 5) Follow-up with podiatry 6) Continue to monitor I&O, labs, and skin integrity Expected Outcomes/Goals: 1) appetite and labs to improve 2) wound to improve 3) gradual wt loss 4) f/u in 3-5 days Date of Service: Dec 16, 2024 Billing Provider: LEONA MESA MD Common Visit Codes: [id number] INP/OBS CARE(HIGH) MONICA DE RESIDENT Dec 16, 2024 15:33 LEONA MESA MD Dec 16, 2024 18:22
[2024-12-16 17:00] VITALS: BP 124/81; PULSE 91; RESP 17; TEMP 99.4; O2SAT 99
--- NOTE | 2024-12-16 17:38 | DVH ---
Bilateral lower extremity arterial duplex Clinical History: osteomyelitis Comparison: None Technique: Duplex Doppler evaluation including color Doppler and spectral/pulsed waveform analysis of the lower extremity arteries was performed. Findings: RIGHT: Peak systolic velocities are as follows: [employer] 95 cm/s Deep femoral 64 cm/s SFA proximal 93 cm/s SFA mid-portion 94 cm/s SFA distal 78 cm/s Popliteal 56 cm/s Posterior tibial 75 cm/s Anterior tibial 62 cm/s Dorsalis pedis 82 cm/s The waveforms are triphasic with diastolic flow. LEFT: Peak systolic velocities are as follows: [employer] 84 cm/s Deep femoral 85 cm/s SFA proximal 104 cm/s SFA mid-portion 128 cm/s SFA distal 99 cm/s Popliteal 106 cm/s Posterior tibial 122 cm/s Anterior tibial 72 cm/s Dorsalis pedis 65 cm/s The waveforms are triphasic with diastolic flow. IMPRESSION: No hemodynamically significant stenosis based on peak systolic velocity criteria. REFERENCE VALUES, [facility] ([facility]) vascular Imaging Lab Criteria: Peak systolic velocity rang es (in cm/sec) are as follows: <150 cm/s - <20 % stenosis 150-200 cm/s - 20-49% stenosis 200-300 cm/s - 50-75% stenosis >300 cm/s -> 75% stenosis
[2024-12-16] MEDS: ERGOCALCIFEROL 50,000 UNIT(1.25MG) CAP PO SCH (17:58)
[2024-12-16] MEDS: HYDROcodone-ACET 5/325MG TAB PO PRN (20:09)
[2024-12-16 21:00] VITALS: BP 108/70; PULSE 92; RESP 16; TEMP 98.8; O2SAT 98
[2024-12-17] VITALS (8 sets, daily range): BP systolic 106–121; BP diastolic 65–77; PULSE 76–92; RESP 16–18; TEMP 97.7–99.1; O2SAT 98–99
[2024-12-17 09:01] LABS: Hemoglobin 9.9 g/dL (12.2-16.2); Nucleated Red Blood Cells % 0.0 %
[2024-12-17 09:05] LABS: Hematocrit 29.1 % (36.0-46.0); Mean Corpuscular Hemoglobin 28.1 pg (28.0-32.0); Mean Corpuscular Volume 82.7 fL (80.0-100.0)
--- NOTE | 2024-12-17 12:12 | DVHPN2 ---
Subjective 28-year-old female With past medical history of type 2 diabetes for the past 13 years presented to the emergency department with complaints of infected wound of the left foot. Patient states that she was admitted on 11/20/2024 to this facility because she had a callus on her foot which she picked, that began to bleed and got infected with pus oozing out. She was admitted by Dr. Jackson/podiatry and he performed incision and drainage procedures on her 3 times during her stay at the hospital. Patient reports she was sent home with a PICC line and medication antibiotic Ancef. She had home health, and wound was cleaned last on Monday. Today she reports that she went for a follow up appointment with her score caller, Dr. Jackson who instructed her to go to the ED again for admission for another debridement procedure on her left foot. Patient denies any fever, chills, shortness of breath, chest pain, abdominal pain, nausea, vomiting, headache or any other complaints. on inquiry the patient states that she has had type 2 diabetes for the past 13 years and has been noncompliant to her insulin medication and metformin for the past 5 years because she suffers from depression. On inquiry she has no suicidal ideation or plan now but reports she had it in her last hospitalization. Patient states that she has been to her PCP who has referred her to a behavioral health specialist. Patient reports that she has been compliant with metformin 500 mg, Lantus 30 mg HS and Ancef medication daily for the past 2 weeks. She states that her blood glucose levels have been good and today it was 107 in the morning. Patient is septic on admission with a heart rate of 98 and WBC of 12.2 with a source of infection being her left foot wound. We are admitting her for further workup. Changes from previous H/P or p: No Changes Eyes: No Pain, No Vision change, No Conjunctivae inflammation, No Eyelid inflammation, No Other, No Redness ENT: No Ear pain, No Ear discharge, No Nose pain, No Nose discharge, No Nose congestion, No Mouth pain, No Mouth swelling, No Throat pain, No Throat swelling, No Other Cardiovascular: No Chest Pain, No Palpitations, No Orthopnea, No Paroxysmal Noc. Dyspnea, No Edema, No Lt Headedness, No Other Respiratory: No Cough, No Dry, No Shortness of breath, No SOB with excertion, No Wheezing, No Hemoptysis, No Pleuritic Pain, No Sputum, No Other Gastrointestinal: No Nausea, No Vomiting, No Abdominal Pain, No Diarrhea, No Constipation, No Melena, No Hematochezia, No Other Genitourinary: No Dysuria, No Frequency, No Incontinence, No Hematuria, No Retention, No Other Musculoskeletal: No other, No neck pain, No shoulder pain, No arm pain, No back pain, No hand pain, No leg pain; foot pain Skin: No Rash, No Lesions, No Jaundice, No Bruising, No Other Objective Vitals Vital Signs Date Time Temp Pulse Resp B/P (MAP) Pulse Ox O2 Delivery O2 Flow Rate FiO2 12/17/24 10:28 98.2 82 17 99 12/17/24 08:17 107/69 (82) 12/17/24 08:00 Room Air* 0 21 Intake/Output Intake and Output 12/17/24 07:00 Intake Total 1465 ml Balance 1465 ml Intake Oral 700 ml IV Total 765 ml # Voids 3 # Bowel Movements 1 Exam Dermatological: Skin is dry with mild erythema and some maceration around the wound site No gross deformities noted Mild non-pitting edema present bilaterally Right dorsal plantar foot wound Vascular: Dorsalis pedis and posterior tibial pulses are 1+ bilaterally Capillary refill is under 2 seconds Skin temperature is warm bilaterally Neurologic: Protective sensation is absent on the plantar forefoot bilaterally Monofilament testing reveals decreased sensation in multiple plantar sites Musculoskeletal: Range of motion at the ankle and MTP joints is within normal limits. Strength is 5/5 in all tested muscle groups. Gait is antalgic due to offloading of the affected limb. Medications Current Medications Medications Dose Ordered Sig/Nadir Route Start Time Stop Time Status Last Admin Dose Admin Ondansetron HCl 4 mg Q4HP PRN IV 12/13/24 16:45 Enoxaparin Sodium 40 mg DAILY SC 12/14/24 10:00 12/15/24 10:40 Acetaminophen 650 mg Q6HP PRN PO 12/13/24 16:45 12/14/24 20:41 Insulin Glargine 30 units HS SC 12/13/24 22:00 12/16/24 21:46 Insulin Human Lispro AC SC 12/13/24 17:00 12/16/24 18:03 Vancomycin HCl 0 ml @ 0 mls/hr UD IV 12/13/24 17:00 Pantoprazole Sodium 40 mg DAILY IV 12/14/24 10:00 12/17/24 08:58 Al Hydrox/Mg Hydrox/Simethicone 15 ml Q8HP PRN PO 12/14/24 13:45 Acetaminophen/ Hydrocodone Bitart 1 tab Q6HPRN PRN PO 12/15/24 11:45 12/16/24 20:09 Vancomycin HCl 250 ml @ 200 mls/hr Q8H IV 12/16/24 18:00 12/17/24 10:09 Ergocalciferol 50,000 unit Q7D PO 12/16/24 15:30 12/16/24 17:58 Ceftriaxone Sodium 50 ml @ 100 mls/hr DAILY@09 IV 12/17/24 09:00 12/17/24 08:55 Laboratory Results Laboratory Tests 12/16/24 05:58 12/17/24 08:37 Urinalysis Test 12/13/24 12:16 Urine Test Negative (Negative) Microbiology Microbiology Date/Time Source Procedure Growth Status 12/16/24 14:04 Foot Left Gram Stain Pending Resulted 12/16/24 14:04 Foot Left Anaerobic Culture - Preliminary Resulted 12/16/24 14:04 Foot Left Aerobic Culture Pending Resulted 12/13/24 18:18 Blood Blood Culture - Preliminary NO GROWTH AFTER 72 HOURS OF INCUBATION. Resulted Assessment/Plan Assessment/Plan ASSESSMENT: Patient is a 28 year old seen on the floor follow up s/p foot I&D PLAN: - The patients chart was reviewed, clinical findings were discussed with the patient, the etiologies of the conditions were discussed in detail, and a treatment plan was agreed to at this time, with both oral and written instructions provided. - reviewed advanced imaging - reviewed all of the labs and pathology - discussed plan is to perform a subsequent incision and drainage and toe amputation on - patient will be NPO at midnight Monday - take him to the [facility] - it was determined that multiple I&Ds will be necessary to save the limb - can weightbear as tolerated in postoperative shoe - follow up with cultures for 6 weeks IV antibiotics All questions were answered and concerns addressed to the patient's satisfaction. The patient was given the phone number to the clinic and was told how to make contact with the clinic should any concerns or questions arise. Patient understands that if any questions or concerns arise prior to the next appointment, we should be contacted immediately. FOLLOW-UP: Continue to follow while inpatient Plan discussed with: Patient My Orders Orders - DAISY JACKSON DPM Procedure Category Date Status Time Anaerobic Culture KRISTIAN 12/16/24 In Process 14:22 Gram Stain KRISTIAN 12/16/24 In Process 14:22 Routine Bacterial KRISTIAN 12/16/24 In Process Culture 14:22 Electrocardigram EKG 12/17/24 Logged 10:17 Problem List: (1) Diabetic ulcer of left foot (2) Failure of outpatient treatment (3) Diabetes mellitus (4) Cellulitis of left foot Visit Coding Podiatry Date of Service if different f: Dec 17, 2024 Billing Provider: DAISY JACKSON DPM Podiatry Common Visit Codes: [id number] INP/OBS CARE(HIGH) DAISY JACKSON DPM Dec 17, 2024 12:12
--- NOTE | 2024-12-17 14:30 | DVHPNRES ---
Progress Note Date Seen: Dec 17, 2024 Resident Creating Document: MONICA DE RESIDENT Has the PT tested + for MRSA If YES, has PT been informed?: No Medical Necessity Reason Pt with a Central, PICC or Fol: Yes The following are medically ne: PICC Line Subjective Review of Systems Crista Julian is a 28-year-old female with past medical history of type 2 diabetes for the past 13 years who presented to the emergency department with complaints of infected wound of the left foot. Patient states that she was admitted on 11/20/2024 to this facility because she had a callus on her foot which she picked, that began to bleed and got infected with pus oozing out. She was admitted by Dr. Rodriguez/podiatry and he performed incision and drainage procedures on her 3 times during her stay at the hospital. Patient reports she was sent home with a PICC line and medication antibiotic Ancef. She had home health, and wound was cleaned last on Monday. Today she reports that she went for a follow up appointment with her capacity analyst, Dr. Rodriguez who instructed her to go to the ED again for admission for another debridement procedure on her left foot. Patient denies any fever, chills, shortness of breath, chest pain, abdominal pain, nausea, vomiting, headache or any other complaints. On inquiry the patient states that she has had type 2 diabetes for the past 13 years and has been noncompliant to her insulin medication and metformin for the past 5 years because she suffers from depression. On inquiry she has no suicidal ideation or plan now but reports she had it in her last hospitalization. Patient states that she has been to her PCP who has referred her to a behavioral health specialist. Patient reports that she has been compliant with metformin 500 mg, Lantus 30 mg HS and Ancef medication daily for the past 2 weeks. She states that her blood glucose levels have been good and today it was 107 in the morning. Patient is septic on admission with a heart rate of 98 and WBC of 12.2 with a source of infection being her left foot wound. We are admitting her for further workup. past medical history: As stated above Past surgical history: Incision and drainage of the same wound on her left leg 3 times in the last hospitalization Family history: Father's mother and sister had diabetes, patient's brother has diabetes type 2 as well social history: Patient denies smoking, drinking alcohol or using any other illicit drugs now. Patient admits she used to smoke marijuana heavily for 10 years and stopped 3 weeks ago when she got hospitalized home medications: Ancef via PICC line, metformin 500 mg, Lantus 30 HS allergies: None Patient seen and examined at bedside. Patient is alert and oriented to time, place person and responding to all questions. Eyes: No Pain, No Vision change, No Conjunctivae inflammation, No Eyelid inflammation, No Redness ENT: No Ear pain, No Ear discharge, No Nose pain, No Nose discharge, No Nose congestion, No Mouth pain, No Mouth swelling, No Throat pain, No Throat swelling Cardiovascular: No Chest Pain, No Palpitations, No Orthopnea, No Paroxysmal No Dyspnea, No Edema, No Lt Headedness Respiratory: No Cough, No Dry, No Shortness of breath, No SOB with exertion, No Wheezing, No Hemoptysis, No Pleuritic Pain, No Sputum Gastrointestinal: No Nausea, No Vomiting, No Abdominal Pain, No Diarrhea, No Constipation, No Melena, No Hematochezia Genitourinary: No Dysuria, No Frequency, No Incontinence, No Hematuria, No Retention 12/14/2024: Patient was seen and examined by me at the bedside today. All charts and lab work were reviewed. Dr. Rodriguez and let us know that the surgery would happen on Monday and to keep the patient NPO from Monday midnight. We put the patient back on diabetic diet as she was NPO before. We added Maalox as the patient complained of burning sensation in the abdomen 12/15/2024- Patient was seen today at bedside, labs and chart reviewed. Hemoglobin 7.1, ordered repeat H&H in the evening. Blood culture no growth so far. Wound culture Gram-positive bakari, MRSA screening negative. Patient with left foot wound on the dorsum and plantar surface and also blackish discoloration in the 3rd toe. CT scan of the Extensive soft tissue gas throughout the forefoot and air in the 3rd proximal phalanx concerning for infection with osteonecrosis. Erosive changes at the 2nd through 4th metatarsal heads as well as at the 2nd and 4th proximal phalanges suggesting osteomyelitis. Spoke to Dr. Mcmahan Podiatry and also send him the CT scan report of the left foot for possible osteonecrosi. Podiatry recommended for NPO after midnight, surgery tomorrow. Ordered clindamycin IV. We will continue other current management. 12/16/24- the patient was seen at bedside today. All labs and charts were reviewed. Clindamycin was discontinued and Rocephin 1 g daily was started. The patient underwent incision and drainage procedure with Podiatry today along with bone biopsy. Patient was asked to follow-up with infectious disease specialist in the outpatient. Duplex arterial study was ordered for the right leg. The patient was started on vitamin-D 28368 IU daily. donor services manager consult for home IV antibiotics was also placed. Possible discharge for tomorrow was discussed with the patient. 12/17/24- patient was seen at bedside today. All labs and charts were reviewed. The patient was continued on Rocephin iv 1 g daily vancomycin IV 1 g 12hours. Duplex arterial study showed no hemodynamically significant stenosis. Podiatry saw the patient and recommended 3rd incision and drainage and to amputation on 12/19/24. Objective vital signs Vital Sign Date Time Temp Pulse Resp B/P (MAP) Pulse Ox O2 Delivery O2 Flow Rate FiO2 12/17/24 12:14 98.2 87 18 121/71 (88) 99 98.2 12/17/24 08:00 Room Air* 0 21 Total Intake and Output 12/16/24 12/16/24 12/17/24 15:00 23:00 07:00 Intake Total 265 ml 450 ml 750 ml Balance 265 ml 450 ml 750 ml medications Current Medications Medications Dose Ordered Sig/Nadir Route Start Time Stop Time Status Last Admin Dose Admin Ondansetron HCl 4 mg Q4HP PRN IV 12/13/24 16:45 Enoxaparin Sodium 40 mg DAILY SC 12/14/24 10:00 12/15/24 10:40 40 MG Acetaminophen 650 mg Q6HP PRN PO 12/13/24 16:45 12/14/24 20:41 650 MG Insulin Glargine 30 units HS SC 12/13/24 22:00 12/16/24 21:46 30 UNITS Insulin Human Lispro AC SC 12/13/24 17:00 12/16/24 18:03 2 UNITS Vancomycin HCl 0 ml @ 0 mls/hr UD IV 12/13/24 17:00 Pantoprazole Sodium 40 mg DAILY IV 12/14/24 10:00 12/17/24 08:58 40 MG Al Hydrox/Mg Hydrox/Simethicone 15 ml Q8HP PRN PO 12/14/24 13:45 Acetaminophen/ Hydrocodone Bitart 1 tab Q6HPRN PRN PO 12/15/24 11:45 12/16/24 20:09 1 TAB Vancomycin HCl 250 ml @ 200 mls/hr Q8H IV 12/16/24 18:00 12/17/24 10:09 200 MLS/HR Ergocalciferol 50,000 unit Q7D PO 12/16/24 15:30 12/16/24 17:58 50,000 UNIT Ceftriaxone Sodium 50 ml @ 100 mls/hr DAILY@09 IV 12/17/24 09:00 12/17/24 08:55 100 MLS/HR Examination General Appearance: Alert, Oriented X3, Cooperative, Not in acute distress HEENT: Atraumatic, Mucous membranes moist/pink Respiratory: Clear to auscultation, Normal air movement, No added sounds Cardiovascular: Regular rate, Normal S1, Normal S2, No murmurs Abdominal: Active bowel sounds, Soft, no distention, no tenderness Extremities: Patient's left foot is covered in bandage post the procedure Skin: No Significant rash, except past surgical scars Neuro: Normal speech, sensorimotor deficits none Psych/Mental Status: Mental status NL, Mood NL Nurse was there as biotech production specialist during examination laboratory and microbiology Laboratory Tests 12/17/24 08:37 12/16/24 05:58 Test 12/16/24 05:58 Range/Units Serum Glucose 98 74-106 mg/dL Microbiology Date/Time Source Procedure Growth Status 12/16/24 14:04 Foot Left Gram Stain Pending Resulted 12/16/24 14:04 Foot Left Anaerobic Culture - Preliminary Resulted 12/16/24 14:04 Foot Left Aerobic Culture Pending Resulted 12/13/24 18:18 Blood Blood Culture - Preliminary NO GROWTH AFTER 72 HOURS OF INCUBATION. 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 Erosive changes of the 2nd through 4th metatarsal heads as well as at the 2nd and 4th proximal phalanges suggesting osteomyelitis. -x-ray of the foot shows: soft tissue swelling over the metatarsophalangeal joint of the left foot, osteoporotic changes of the head of the 2nd, 3rd, 4th and 5th metatarsals. There appears to be gas in the surrounding tissues of the metatarsophalangeal joints of the 2nd and 3rd digits. Findings are worrisome for osteomyelitis -blood culture negative so far -wound culture Gram-positive bakari on 12/13/24 -I&D done on 12/16/24 with bone biopsy - urine test negative - PT/PTT normal - Wound dressing as prescribed - IV vancomycin 1 gm q12 hrs -started on rocephin 1gm daily on 12/16/24 -duplex arterial scan on 12/16/24 showed no hemodynamically significant stenosis -social security benefits interviewer consult placed for home iv antibiotics -podiatry mentioned a subsequent incision and drainage and toe amputation on 12/19/2024 -pending wound culture reports # uncontrolled type 2 diabetes mellitus -A1c on 11/20/2024 was 12.1 -insulin Lantus 30 units HS -insulin mild sliding scale -patient conuseled on strict dietary and medication compliance -low carb diet # possible GERD -Protonix 40 mg p.o. daily -Maalox 15 mL Q8H # marijuana use disorder -counseled on cessation GI prophylaxis: Protonix 40mg daily iv DVT prophylaxis: Lovenox 40mg daily sc Goals of care: Full code, discussed for >20 minutes Plan discussed with Dr Mesa Plan discussed with: Patient My Orders My Orders Orders - MONICA DE RESIDENT Procedure Category Date Status Time Ergocalciferol PHA 12/16/24 In Process (Vitamin D 50,000 15:30 Ss Consult To Arrange PA 12/16/24 In Process Home Iv 18:38 Discharge DISCHARGE 12/17/24 Transmitted 08:52 Dietary Evaluation Review Recommendations by RD: Dietary education by RD, Protein Supplementation Comments: 1) Initiate MVI @ 1 tb qd 2) Initiate Khanh @ 1 pk bid 3) Initiate vitamin C @ 500 mg bid and zinc sulfate @ 220 mg qd for 7 days 4) Refer to outpatient RD/[facility] for diabetes education 5) Follow-up with podiatry 6) Continue to monitor I&O, labs, and skin integrity Expected Outcomes/Goals: 1) appetite and labs to improve 2) wound to improve 3) gradual wt loss 4) f/u in 3-5 days Date of Service: Dec 17, 2024 Billing Provider: LEONA MESA MD Common Visit Codes: [id number] INP/OBS CARE(HIGH) MONICA DE RESIDENT Dec 17, 2024 14:30
[2024-12-18] VITALS (8 sets, daily range): BP systolic 111–127; BP diastolic 71–86; PULSE 88–92; RESP 16–18; TEMP 98.1–98.7; O2SAT 98–100
[2024-12-18 05:17] LABS: Hemoglobin 8.4 g/dL (12.2-16.2); Mean Corpuscular Volume 81.2 fL (80.0-100.0)
[2024-12-18 05:20] LABS: Hematocrit 24.1 % (36.0-46.0); Mean Corpuscular Hemoglobin 28.3 pg (28.0-32.0); Nucleated Red Blood Cells % 0.1 %
--- NOTE | 2024-12-18 07:34 | ECG ---
[facility] Test Date: 2024-12-15 Test Time: 18:31:28 Pat Name: MINA MALDONADO Department: Room: 0246 Gender: F Copper Plater: JAYDEN LOWE : 1995 Requested By: DAISY JACKSON Order Number: [id number] Reading MD: Jairo Abrams Measurements Intervals [place] Rate: 89 P: 28 AK: 135 QRS: 66 QRSD: 76 T: 39 QT: 370 QTc: 451 Interpretive Statements Sinus rhythm RSR' in V1 or V2, probably normal variant Electronically Signed On 12-23-2024 15:20:51 PDT by Jairo Abrams Please click the below link to view image of tracing.
--- NOTE | 2024-12-18 15:59 | DVHPNRES ---
Progress Note Date Seen: Dec 18, 2024 Resident Creating Document: MONICA DE RESIDENT Has the PT tested + for MRSA If YES, has PT been informed?: No Medical Necessity Reason Pt with a Central, PICC or Fol: Yes The following are medically ne: PICC Line Subjective Review of Systems Crista Julian is a 28-year-old female with past medical history of type 2 diabetes for the past 13 years who presented to the emergency department with complaints of infected wound of the left foot. Patient states that she was admitted on 11/20/2024 to this facility because she had a callus on her foot which she picked, that began to bleed and got infected with pus oozing out. She was admitted by Dr. Rodriguez/podiatry and he performed incision and drainage procedures on her 3 times during her stay at the hospital. Patient reports she was sent home with a PICC line and medication antibiotic Ancef. She had home health, and wound was cleaned last on Monday. Today she reports that she went for a follow up appointment with her load tester, Dr. Rodriguez who instructed her to go to the ED again for admission for another debridement procedure on her left foot. Patient denies any fever, chills, shortness of breath, chest pain, abdominal pain, nausea, vomiting, headache or any other complaints. On inquiry the patient states that she has had type 2 diabetes for the past 13 years and has been noncompliant to her insulin medication and metformin for the past 5 years because she suffers from depression. On inquiry she has no suicidal ideation or plan now but reports she had it in her last hospitalization. Patient states that she has been to her PCP who has referred her to a behavioral health specialist. Patient reports that she has been compliant with metformin 500 mg, Lantus 30 mg HS and Ancef medication daily for the past 2 weeks. She states that her blood glucose levels have been good and today it was 107 in the morning. Patient is septic on admission with a heart rate of 98 and WBC of 12.2 with a source of infection being her left foot wound. We are admitting her for further workup. past medical history: As stated above Past surgical history: Incision and drainage of the same wound on her left leg 3 times in the last hospitalization Family history: Father's mother and sister had diabetes, patient's brother has diabetes type 2 as well social history: Patient denies smoking, drinking alcohol or using any other illicit drugs now. Patient admits she used to smoke marijuana heavily for 10 years and stopped 3 weeks ago when she got hospitalized home medications: Ancef via PICC line, metformin 500 mg, Lantus 30 HS allergies: None Patient seen and examined at bedside. Patient is alert and oriented to time, place person and responding to all questions. Eyes: No Pain, No Vision change, No Conjunctivae inflammation, No Eyelid inflammation, No Redness ENT: No Ear pain, No Ear discharge, No Nose pain, No Nose discharge, No Nose congestion, No Mouth pain, No Mouth swelling, No Throat pain, No Throat swelling Cardiovascular: No Chest Pain, No Palpitations, No Orthopnea, No Paroxysmal No Dyspnea, No Edema, No Lt Headedness Respiratory: No Cough, No Dry, No Shortness of breath, No SOB with exertion, No Wheezing, No Hemoptysis, No Pleuritic Pain, No Sputum Gastrointestinal: No Nausea, No Vomiting, No Abdominal Pain, No Diarrhea, No Constipation, No Melena, No Hematochezia Genitourinary: No Dysuria, No Frequency, No Incontinence, No Hematuria, No Retention 12/14/2024: Patient was seen and examined by me at the bedside today. All charts and lab work were reviewed. Dr. Rodriguez and let us know that the surgery would happen on Monday and to keep the patient NPO from Monday midnight. We put the patient back on diabetic diet as she was NPO before. We added Maalox as the patient complained of burning sensation in the abdomen 12/15/2024- Patient was seen today at bedside, labs and chart reviewed. Hemoglobin 7.1, ordered repeat H&H in the evening. Blood culture no growth so far. Wound culture Gram-positive bakari, MRSA screening negative. Patient with left foot wound on the dorsum and plantar surface and also blackish discoloration in the 3rd toe. CT scan of the Extensive soft tissue gas throughout the forefoot and air in the 3rd proximal phalanx concerning for infection with osteonecrosis. Erosive changes at the 2nd through 4th metatarsal heads as well as at the 2nd and 4th proximal phalanges suggesting osteomyelitis. Spoke to Dr. Mcmahan Podiatry and also send him the CT scan report of the left foot for possible osteonecrosi. Podiatry recommended for NPO after midnight, surgery tomorrow. Ordered clindamycin IV. We will continue other current management. 12/16/24- The patient was seen at bedside today. All labs and charts were reviewed. Clindamycin was discontinued and Rocephin 1 g daily was started. The patient underwent incision and drainage procedure with Podiatry today along with bone biopsy. Patient was asked to follow-up with infectious disease specialist in the outpatient. Duplex arterial study was ordered for the right leg. The patient was started on vitamin-D 64052 IU daily. donor services manager consult for home IV antibiotics was also placed. Possible discharge for tomorrow was discussed with the patient. 12/17/24- The patient was seen at bedside today. All labs and charts were reviewed. The patient was continued on Rocephin iv 1 g daily vancomycin IV 1 g 12hours. Duplex arterial study showed no hemodynamically significant stenosis. Podiatry saw the patient and recommended 3rd incision and drainage and to amputation on 12/19/24. 12/18/24- The patient was seen at bedside today. All labs and charts were reviewed. IV antibiotics were continued. Patient was pending incision and drainage and to amputation by Dr. Rodriguez tomorrow. Objective vital signs Vital Sign Date Time Temp Pulse Resp B/P (MAP) Pulse Ox O2 Delivery O2 Flow Rate FiO2 12/18/24 13:18 98.1 89 18 122/80 (94) 99 98.1 12/18/24 08:00 Room Air* 0 21 Total Intake and Output 12/17/24 12/17/24 12/18/24 15:00 23:00 07:00 Intake Total 300 ml 950 ml 550 ml Balance 300 ml 950 ml 550 ml medications Current Medications Medications Dose Ordered Sig/Nadir Route Start Time Stop Time Status Last Admin Dose Admin Ondansetron HCl 4 mg Q4HP PRN IV 12/13/24 16:45 Enoxaparin Sodium 40 mg DAILY SC 12/14/24 10:00 12/18/24 09:50 40 MG Acetaminophen 650 mg Q6HP PRN PO 12/13/24 16:45 12/14/24 20:41 650 MG Insulin Glargine 30 units HS SC 12/13/24 22:00 12/17/24 21:34 30 UNITS Insulin Human Lispro AC SC 12/13/24 17:00 12/16/24 18:03 2 UNITS Vancomycin HCl 0 ml @ 0 mls/hr UD IV 12/13/24 17:00 Pantoprazole Sodium 40 mg DAILY IV 12/14/24 10:00 12/18/24 09:50 40 MG Al Hydrox/Mg Hydrox/Simethicone 15 ml Q8HP PRN PO 12/14/24 13:45 Acetaminophen/ Hydrocodone Bitart 1 tab Q6HPRN PRN PO 12/15/24 11:45 12/16/24 20:09 1 TAB Vancomycin HCl 250 ml @ 200 mls/hr Q8H IV 12/16/24 18:00 12/18/24 10:35 200 MLS/HR Ergocalciferol 50,000 unit Q7D PO 12/16/24 15:30 12/16/24 17:58 50,000 UNIT Ceftriaxone Sodium 50 ml @ 100 mls/hr DAILY@09 IV 12/17/24 09:00 12/18/24 09:50 100 MLS/HR Examination General Appearance: Alert, Oriented X3, Cooperative, Not in acute distress HEENT: Atraumatic, Mucous membranes moist/pink Respiratory: Clear to auscultation, Normal air movement, No added sounds Cardiovascular: Regular rate, Normal S1, Normal S2, No murmurs Abdominal: Active bowel sounds, Soft, no distention, no tenderness Extremities: Patient's left foot is covered in bandage post the procedure Skin: No Significant rash, except past surgical scars Neuro: Normal speech, sensorimotor deficits none Psych/Mental Status: Mental status NL, Mood NL Nurse was there as furniture reproducer during examination laboratory and microbiology Laboratory Tests 12/18/24 05:03 12/16/24 05:58 Test 12/16/24 05:58 Range/Units Serum Glucose 98 74-106 mg/dL Microbiology Date/Time Source Procedure Growth Status 12/16/24 14:04 Foot Left Gram Stain - Final Resulted 12/16/24 14:04 Foot Left Anaerobic Culture - Preliminary Resulted 12/16/24 14:04 Foot Left Aerobic Culture - Preliminary Resulted 12/13/24 18:18 Blood Blood Culture - Preliminary NO GROWTH AFTER 72 HOURS OF INCUBATION. 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 Erosive changes of the 2nd through 4th metatarsal heads as well as at the 2nd and 4th proximal phalanges suggesting osteomyelitis. -x-ray of the foot shows: soft tissue swelling over the metatarsophalangeal joint of the left foot, osteoporotic changes of the head of the 2nd, 3rd, 4th and 5th metatarsals. There appears to be gas in the surrounding tissues of the metatarsophalangeal joints of the 2nd and 3rd digits. Findings are worrisome for osteomyelitis -blood culture negative so far -wound culture Gram-positive bakari on 12/13/24 -I&D done on 12/16/24 with bone biopsy - urine test negative - PT/PTT normal - Wound dressing as prescribed - IV vancomycin 1 gm q12 hrs -started on rocephin 1gm daily on 12/16/24 -duplex arterial scan on 12/16/24 showed no hemodynamically significant stenosis -social human services assistants consult placed for home iv antibiotics -podiatry mentioned a subsequent incision and drainage and toe amputation on 12/19/2024 -pending wound culture reports # uncontrolled type 2 diabetes mellitus -A1c on 11/20/2024 was 12.1 -insulin Lantus 30 units HS -insulin mild sliding scale -patient conuseled on strict dietary and medication compliance -low carb diet # possible GERD -Protonix 40 mg p.o. daily -Maalox 15 mL Q8H # marijuana use disorder -counseled on cessation GI prophylaxis: Protonix 40mg daily iv DVT prophylaxis: Lovenox 40mg daily sc Goals of care: Full code, discussed for >20 minutes Plan discussed with Dr Mesa Plan discussed with: Patient Dietary Evaluation Review Recommendations by RD: Dietary education by RD, Protein Supplementation Comments: 1) Initiate MVI @ 1 tb qd 2) Initiate Khanh @ 1 pk bid 3) Initiate vitamin C @ 500 mg bid and zinc sulfate @ 220 mg qd for 7 days 4) Refer to outpatient RD/[facility] for diabetes education 5) Follow-up with podiatry 6) Continue to monitor I&O, labs, and skin integrity Expected Outcomes/Goals: 1) appetite and labs to improve 2) wound to improve 3) gradual wt loss 4) f/u in 3-5 days Date of Service: Dec 18, 2024 Billing Provider: LEONA MESA MD Common Visit Codes: [id number] INP/OBS CARE(HIGH) MONICA DE RESIDENT Dec 18, 2024 15:59
[2024-12-19] VITALS (9 sets, daily range): BP systolic 111–136; BP diastolic 68–83; PULSE 87–118; RESP 15–96; TEMP 97.7–98.5; O2SAT 96–99
[2024-12-19 06:05] LABS: Hematocrit 24.8 % (36.0-46.0); Hemoglobin 8.7 g/dL (12.2-16.2); Mean Corpuscular Hemoglobin 28.2 pg (28.0-32.0); Mean Corpuscular Volume 80.4 fL (80.0-100.0); Nucleated Red Blood Cells % 0.0 %
[2024-12-19 06:20] LABS: INR 1.02 (0.9-1.15); Partial Thromboplastin Time 26.2 SEC (24.5-34.5); Prothrombin Time 10.8 sec (9.3-11.8)
--- NOTE | 2024-12-19 11:03 | DVHPN2 ---
Subjective 28-year-old female With past medical history of type 2 diabetes for the past 13 years presented to the emergency department with complaints of infected wound of the left foot. Patient states that she was admitted on 11/20/2024 to this facility because she had a callus on her foot which she picked, that began to bleed and got infected with pus oozing out. She was admitted by Dr. Jackson/podiatry and he performed incision and drainage procedures on her 3 times during her stay at the hospital. Patient reports she was sent home with a PICC line and medication antibiotic Ancef. She had home health, and wound was cleaned last on Monday. Today she reports that she went for a follow up appointment with her chocolate packer, Dr. Jackson who instructed her to go to the ED again for admission for another debridement procedure on her left foot. Patient denies any fever, chills, shortness of breath, chest pain, abdominal pain, nausea, vomiting, headache or any other complaints. on inquiry the patient states that she has had type 2 diabetes for the past 13 years and has been noncompliant to her insulin medication and metformin for the past 5 years because she suffers from depression. On inquiry she has no suicidal ideation or plan now but reports she had it in her last hospitalization. Patient states that she has been to her PCP who has referred her to a behavioral health specialist. Patient reports that she has been compliant with metformin 500 mg, Lantus 30 mg HS and Ancef medication daily for the past 2 weeks. She states that her blood glucose levels have been good and today it was 107 in the morning. Patient is septic on admission with a heart rate of 98 and WBC of 12.2 with a source of infection being her left foot wound. We are admitting her for further workup. Changes from previous H/P or p: No Changes Eyes: No Pain, No Vision change, No Conjunctivae inflammation, No Eyelid inflammation, No Other, No Redness ENT: No Ear pain, No Ear discharge, No Nose pain, No Nose discharge, No Nose congestion, No Mouth pain, No Mouth swelling, No Throat pain, No Throat swelling, No Other Cardiovascular: No Chest Pain, No Palpitations, No Orthopnea, No Paroxysmal Noc. Dyspnea, No Edema, No Lt Headedness, No Other Respiratory: No Cough, No Dry, No Shortness of breath, No SOB with excertion, No Wheezing, No Hemoptysis, No Pleuritic Pain, No Sputum, No Other Gastrointestinal: No Nausea, No Vomiting, No Abdominal Pain, No Diarrhea, No Constipation, No Melena, No Hematochezia, No Other Genitourinary: No Dysuria, No Frequency, No Incontinence, No Hematuria, No Retention, No Other Musculoskeletal: No other, No neck pain, No shoulder pain, No arm pain, No back pain, No hand pain, No leg pain; foot pain Skin: No Rash, No Lesions, No Jaundice, No Bruising, No Other Objective Vitals Vital Signs Date Time Temp Pulse Resp B/P (MAP) Pulse Ox O2 Delivery O2 Flow Rate FiO2 12/19/24 09:00 98.1 87 17 132/83 (99) 99 98.1 12/18/24 20:00 Room Air* 0 21 Intake/Output Intake and Output 12/19/24 06:59 Intake Total 3050 ml Balance 3050 ml Intake Oral 2500 ml IV Total 550 ml # Voids 3 Exam Dermatological: Skin is dry with mild erythema and some maceration around the wound site No gross deformities noted Mild non-pitting edema present bilaterally Right dorsal plantar foot wound Vascular: Dorsalis pedis and posterior tibial pulses are 1+ bilaterally Capillary refill is under 2 seconds Skin temperature is warm bilaterally Neurologic: Protective sensation is absent on the plantar forefoot bilaterally Monofilament testing reveals decreased sensation in multiple plantar sites Musculoskeletal: Range of motion at the ankle and MTP joints is within normal limits. Strength is 5/5 in all tested muscle groups. Gait is antalgic due to offloading of the affected limb. Medications Current Medications Medications Dose Ordered Sig/Nadir Route Start Time Stop Time Status Last Admin Dose Admin Ondansetron HCl 4 mg Q4HP PRN IV 12/13/24 16:45 Enoxaparin Sodium 40 mg DAILY SC 12/14/24 10:00 12/18/24 09:50 40 MG Acetaminophen 650 mg Q6HP PRN PO 12/13/24 16:45 12/14/24 20:41 650 MG Insulin Glargine 30 units HS SC 12/13/24 22:00 12/18/24 22:31 30 UNITS Insulin Human Lispro AC SC 12/13/24 17:00 12/16/24 18:03 2 UNITS Vancomycin HCl 0 ml @ 0 mls/hr UD IV 12/13/24 17:00 Pantoprazole Sodium 40 mg DAILY IV 12/14/24 10:00 12/19/24 08:58 40 MG Al Hydrox/Mg Hydrox/Simethicone 15 ml Q8HP PRN PO 12/14/24 13:45 Acetaminophen/ Hydrocodone Bitart 1 tab Q6HPRN PRN PO 12/15/24 11:45 12/16/24 20:09 1 TAB Vancomycin HCl 250 ml @ 200 mls/hr Q8H IV 12/16/24 18:00 12/19/24 09:55 200 MLS/HR Ergocalciferol 50,000 unit Q7D PO 12/16/24 15:30 12/16/24 17:58 50,000 UNIT Ceftriaxone Sodium 50 ml @ 100 mls/hr DAILY@09 IV 12/17/24 09:00 12/19/24 08:59 100 MLS/HR Laboratory Results Laboratory Tests 12/16/24 05:58 12/19/24 05:38 Coagulation Test 12/19/24 05:38 Prothrombin Time 10.8 sec (9.3-11.8) Prothrombin Time INR 1.02 (0.9-1.15) Activated Partial Thromboplast Time 26.2 SEC (24.5-34.5) Urinalysis Test 12/13/24 12:16 Urine Test Negative (Negative) Microbiology Microbiology Date/Time Source Procedure Growth Status 12/16/24 14:04 Foot Left Gram Stain - Final Resulted 12/16/24 14:04 Foot Left Anaerobic Culture - Preliminary Resulted 12/16/24 14:04 Foot Left Aerobic Culture - Preliminary Resulted 12/13/24 18:18 Blood Blood Culture - Final NO GROWTH AFTER 5 DAYS OF INCUBATION. Complete Assessment/Plan Assessment/Plan ASSESSMENT: Patient is a 28 year old seen on the floor follow up s/p foot I&D PLAN: - The patients chart was reviewed, clinical findings were discussed with the patient, the etiologies of the conditions were discussed in detail, and a treatment plan was agreed to at this time, with both oral and written instructions provided. - reviewed advanced imaging - reviewed all of the labs and pathology - discussed plan is to perform a subsequent incision and drainage and toe amputation today - patient has been NPO since midnight - take her to the OR today - likely able to be DC after procedure, will need continue wound vac - can weightbear as tolerated in postoperative shoe - follow up with cultures for 6 weeks IV antibiotics All questions were answered and concerns addressed to the patient's satisfaction. The patient was given the phone number to the clinic and was told how to make contact with the clinic should any concerns or questions arise. Patient understands that if any questions or concerns arise prior to the next appointment, we should be contacted immediately. FOLLOW-UP: Continue to follow while inpatient Plan discussed with: Patient My Orders Orders - DAISY JACKSON DPM Procedure Category Date Status Time Npo Except For PA 12/19/24 In Process Medications 06:47 Npo (Nothing By DIET 12/19/24 Transmitted Mouth) Diet Breakfast Obtain Consent For: ORDERS 12/19/24 Transmitted 06:48 Visit Coding Podiatry Date of Service if different f: Dec 19, 2024 Billing Provider: DAISY JACKSON DPM Podiatry Common Visit Codes: [id number] INP/OBS CARE(HIGH) DAISY JACKSON DPM Dec 19, 2024 11:03
[2024-12-19] MEDS ORDERED: BUPIVACAINE HCL 50 ML ONE (11:14)
[2024-12-19] MEDS ORDERED: MIDAZOLAM HCL 2MG/2ML 2ml VIAL (1mg/ml) ONE (11:37)
[2024-12-19] MEDS ORDERED: fentaNYL CITRATE 100 MCG/2 ML VL ONE (11:37)
[2024-12-19] MEDS ORDERED: PROPOFOL 10 MG/ML 20 ML IV ONE (11:38)
[2024-12-19] MEDS ORDERED: ONDANSETRON HCL 4 MG/2 ML VIAL ONE (11:44)
[2024-12-19] MEDS ORDERED: METOCLOPRAMIDE HCL 5MG/ml INJ 2ml VIAL ONE (11:44)
[2024-12-19] MEDS: VANCOMYCIN HCL 1000 MG VL ONE (11:52)
[2024-12-19] MEDS: BUPIVACAINE 0.5% INJ 50ML VIAL IJ ONE (11:53)
[2024-12-19] MEDS ORDERED: SODIUM CHLORIDE LOCK 10 ML ONE (11:58)
--- NOTE | 2024-12-19 11:58 | DVHOP2 ---
Operative Report - 2 Report Details Date: 12/19/24 Preop Diagnosis: 1. Left foot necrotizing fasciitis 2. Left foot abscess 3. Left foot cellulitis 4. Left foot diabetic foot ulcer Postop Diagnosis: Same as preop Surgeon: Daisy Jackson MD Anesthesiologist: None Anesthesia: Local Consent: The patient was informed of the risks and benefits of the procedure. These include but are not limited to complications of anesthesia, postoperative infection, incomplete relief of symptoms, recurrence of symptoms, damage to blood vessels, nerves and tendons, deep venous thrombosis, pulmonary embolism and possible need for repeat surgery in the future. Complications: None Estimated Blood Loss: Minimal Fluids: See anesthesia Findings: Consistent with the diagnosis Indications for Surgery: Worsening foot wound Name of Procedure Performed 1. Left foot I&D to bone (58949) 2. Left foot 3rd toe amputation (01472) 3. Left foot delayed closure (76819) Procedure Details Procedure Details: PRE-PROCEDURE INFORMATION: In the pre-op holding area, the extremity to be operated on was clearly marked and the patient verified correct laterality of the marking. The patient was transferred to the OR table and placed in a supine position. A timeout was performed in which identification of the correct patient, procedure, location, and materials was done. The left foot and leg were prepped and draped in normal sterile fashion. DESCRIPTION OF PROCEDURE: Attention was directed to the right foot where previous incision was made. An incision was made over this area and was de epened through blunt dissection. The incision was deepened to the level of abscess and bone. Care was taken to the dissection to avoid any neurovascular and tendinous structures. The incision was deepened to the bone, and the abscess appeared to be purulent fluid consistent with pus. The cortices of the bone was then removed with rongeur an all necrotic tissue. After the abscess was drained, the area was irrigated with 3 L normal saline using cysto tubing. It was decided at this point that the 3rd toe not be salvageable and amputation was performed of the point. A partial delayed closure was then performed using 2-0 nylon after was deemed appropriate with no longer concern for infection. POSTOPERATIVE INFORMATION: The patient tolerated the above noted procedure and anesthesia well and was transferred to the PACU with vital signs stable, and vascular status intact with capillary refill intact to all digits. Patient will need 6 weeks IV antibiotics based off cultures. Patient will need wound VAC placed. Patient to be nonweightbearing on that foot. Follow up with me next week. Condition Good Disposition Home with Health Services Visit Coding Podiatry Date of Service if different f: Dec 19, 2024 Billing Provider: DAISY JACKSON DPM Podiatry Common Visit Codes: PROCEDURE ONLY DAISY JACKSON DPM Dec 19, 2024 11:58
[2024-12-19] MEDS ORDERED: METOCLOPRAMIDE HCL 5MG/ml INJ 2ml VIAL IV PRN (12:15)
[2024-12-19] MEDS: ONDANSETRON HCL 4 MG/2 ML VIAL IV PRN (12:15)
[2024-12-19] MEDS ORDERED: HYDROmorphone HCL 2 MG/ML VL/or syr IV PRN (12:15)
[2024-12-19] MEDS ORDERED: ONDANSETRON HCL 4 MG/2 ML VIAL IV PRN (12:15)
[2024-12-19] MEDS: KETOROLAC TROMETH 30 MG/ML 1ML VIAL IV ONE (12:28)
--- NOTE | 2024-12-19 18:41 | DVHDSRES ---
Discharge Summary Date of Admission Resident Creating Document: MONICA DE RESIDENT Dec 13, 2024 at 16:33 Date of Discharge: Dec 17, 2024 Wounds: infected wound on left foot Labs/Diagnostic Data: Laboratory Results Test 12/19/24 17:23 12/19/24 05:38 12/17/24 08:37 12/16/24 05:58 POC Glucose 153 mg/dl (70-106) White Blood Count 6.6 10^3/uL (4.4-10.8) Red Blood Count 3.09 10^6/uL (4.0-5.20) Hemoglobin 8.7 g/dL (12.2-16.2) Hematocrit 24.8 % (36.0-46.0) Mean Corpuscular Volume 80.4 fL (80.0-100.0) Mean Corpuscular Hemoglobin 28.2 pg (28.0-32.0) Mean Corpuscular Hemoglobin Concent 35.1 g/dL (32.0-36.0) Red Cell Distribution Width 13.9 % (11.8-14.3) Platelet Count 420 10^3/uL (140-450) Mean Platelet Volume 6.9 fL (6.9-10.8) Neutrophils (%) (Auto) 67.6 % (37.0-80.0) Lymphocytes (%) (Auto) 21.4 % (10.0-50.0) Monocytes (%) (Auto) 8.5 % (0.0-12.0) Eosinophils (%) (Auto) 1.9 % (0.0-7.0) Basophils (%) (Auto) 0.6 % (0.0-2.0) Neutrophils # (Auto) 4.4 10 ^3/uL (1.6-8.6) Lymphocytes # (Auto) 1.4 10 ^3/uL (0.4-5.4) Monocytes # (Auto) 0.6 10 ^3/uL (0-1.3) Eosinophils # (Auto) 0.1 10 ^3/uL (0-0.8) Basophils # (Auto) 0 10 ^3/uL (0-0.2) Nucleated Red Blood Cells 0.0 % Prothrombin Time 10.8 sec (9.3-11.8) Prothrombin Time INR 1.02 (0.9-1.15) Activated Partial Thromboplast Time 26.2 SEC (24.5-34.5) Creatinine 0.33 mg/dL (0.550-1.02) Glomerular Filtration Rate Calc 143 mL/min (>90) Vancomycin Level Trough 12.6 ug/mL (5-10) Sodium Level 140 mmol/L (136-145) Potassium Level 3.8 mmol/L (3.5-5.1) Chloride Level 104 mmol/L (98-107) Carbon Dioxide Level 25 mmol/L (20-31) Anion Gap 11 (5-15) Blood Urea Nitrogen 11 mg/dL (9-23) BUN/Creatinine Ratio 20.0 (10.0-20.0) Serum Glucose 98 mg/dL (74-106) Calcium Level 8.7 mg/dL (8.7-10.4) Magnesium Level 1.9 mg/dL (1.6-2.6) Total Bilirubin 0.6 mg/dL (0.2-1.0) Aspartate Amino Transferase (AST) < 8 U/L (13-40) Alanine Aminotransferase (ALT) < 9 U/L (7-40) Alkaline Phosphatase 132 U/L (46-116) Total Protein 7.1 g/dL (5.7-8.2) Albumin 3.4 g/dL (3.2-4.8) Test 12/14/24 04:51 12/13/24 17:36 12/13/24 12:16 12/13/24 10:55 Beta HCG, Quantitative < 1.5 mIU/mL (1.5-4.2) Random Vancomycin Level 9.4 ug/mL (5-10) Lactic Acid Level 1.1 mmol/L (0.4-2.0) C-Reactive Protein High Sensitivity 3.51 mg/dL (<1.0) Urine Test Negative (Negative) Erythrocyte Sedimentation Rate 115 mm/hr (0-20) Other Laboratory Tests 12/19/24 05:38 12/16/24 05:58 Brief Hx & Hospital Course: Crista Julian is a 28-year-old female with past medical history of type 2 diabetes for the past 13 years who presented to the emergency department with complaints of infected wound of the left foot. Patient had a similar infected foot wound 1 month back for which she underwent incision and drainage procedures 3 times during her hospital stay and was sent home on IV antibiotics. At the follow up appointment with the folder machine adjuster, Dr. Rodriguez she was told to get admitted for another debridement procedure. In the hospital, CT scan of the left foot showed extensive soft tissue gas throughout the forefoot and air in the 3rd proximal phalanx concerning for infection with osteonecrosis. Erosive changes at the 2nd through 4th metatarsal heads as well as at the 2nd and 4th proximal phalanges suggesting osteomyelitis were seen. Incision and drainage with bone biopsy was done on 12/16/2024. IV vancomycin 1g, bid and IV ceftriaxone 1g daily were started for the patient. Duplex arterial study for the bilateral lower extremities showed no hemodynamically significance stenosis. Patient underwent another incision and drainage procedure on left foot and amputation of the 3rd toe of the left foot with left foot delayed closure on 12/19/24 with an uncomplicated postoperative course. She was discharged home with home health for iv antibiotics. Medications and recommendations were thoroughly explained to the patient and she demonstrated understanding of the same. She was discharged home on IV vancomycin 1 g b.i.d. IV and ceftriaxone 1 g daily for 6 weeks. past medical history: As stated above Past surgical history: Incision and drainage of the same wound on her left leg 3 times in the last hospitalization Family history: Father's mother and sister had diabetes, patient's brother has diabetes type 2 as well social history: Patient denies smoking, drinking alcohol or using any other illicit drugs now. Patient admits she used to smoke marijuana heavily for 10 years and stopped 3 weeks ago when she got hospitalized home medications: Ancef via PICC line, metformin 500 mg, Lantus 30 HS allergies: None General Appearance: Alert, Oriented X3, Cooperative, Not in acute distress HEENT: Atraumatic, Mucous membranes moist/pink Respiratory: Clear to auscultation, Normal air movement, No added sounds Cardiovascular: Regular rate, Normal S1, Normal S2, No murmurs Abdominal: Active bowel sounds, Soft, no distention, no tenderness Extremities: Patient's left foot is covered in bandage post the procedure Skin: No Significant rash, except past surgical scars Neuro: Normal speech, sensorimotor deficits none Psych/Mental Status: Mental status NL, Mood NL Nurse was there as clinical research scientist during examination Operations or Procedures 1.PROCEDURE(s): CXRP - CHEST PORTABLE REASON: PICC line confirmation ORDER NUMBER(s): [id number], ACCESSION NUMBER(s): [id number] EXAM: XY CHEST PORTABLE Indication: PICC line confirmation Technique: Single frontal view of the chest was obtained Comparison: None FINDINGS: Lines and Tubes: Right PICC tip projects over superior vena cava. Lungs: No focal consolidation. Pleura: No effusion. No pneumothorax. Cardiomediastinal contours: Unremarkable Bones: No acute osseous abnormality. IMPRESSION: No acute cardiopulmonary disease. 2.PROCEDURE(s): LFOT2 - L FOOT 2 VIEW XRAY REASON: eval for osteomylitis ORDER NUMBER(s): [id number], ACCESSION NUMBER(s): [id number] CLINICAL INDICATION: eval for osteomylitis TECHNIQUE: 2 radiographic views of the left foot were obtained. Comparison: XY L FOOT 3 VIEW XRAY on DOS: 11/20/24 FINDINGS/IMPRESSION: Soft tissue swelling is noted over the metatarsal phalangeal joints of the left foot. Osteoporotic changes of the heads of the 2nd 3rd 4th and 5th metatarsals. There appears to be gas in the surrounding tissues of the metatarsal phalangeal joints of the 2nd and 3rd digits. Findings are worrisome for osteomyelitis consider MRI for further evaluation. 3.PROCEDURE(s): LFTCT - CT L FOOT WO CONTRAST REASON: eval for osteomylitis ORDER NUMBER(s): [id number], ACCESSION NUMBER(s): [id number] EXAMINATION: CT CT L FOOT WO CONTRAST INDICATION: eval for osteomylitis. Pain and swelling. COMPARISON: XY L FOOT 2 VIEW XRAY on DOS: 12/13/24, XY L FOOT 3 VIEW XRAY on DOS: 11/20/24 TECHNIQUE: CT of the rightleft foot was performed without contrast. Volume transverse images were obtained reconstructed in multiple planes using bone and soft tissue algorithms. Radiation: CTDIvol 7.75 mGy; FINDINGS: Extensive soft tissue gas along the plantar aspect of the forefoot most pronounced surrounding the 3rd digit and 3rd MTP joint. Air is seen within the 3rd proximal phalanx. Erosive changes at the 2nd through 4th metatarsal heads. Erosive changes at the base of the 2nd and 4th proximal phalanges. IMPRESSION: Extensive soft tissue gas throughout the forefoot and air in the 3rd proximal phalanx concerning for infection with osteonecrosis. Erosive changes at the 2nd through 4th metatarsal heads as well as at the 2nd and 4th proximal phalanges suggesting osteomyelitis. 4.PROCEDURE(s): BLEAD - BiLat Low Ext Art Duplex REASON: osteomyelitis ORDER NUMBER(s): [id number], ACCESSION NUMBER(s): [id number] Bilateral lower extremity arterial duplex Clinical History: osteomyelitis Comparison: None Technique: Duplex Doppler evaluation including color Doppler and spectral/pulsed waveform analysis of the lower extremity arteries was performed. Findings: RIGHT: Peak systolic velocities are as follows: WOOD DRILLING MACHINE OPERATOR 95 cm/s Deep femoral 64 cm/s SFA proximal 93 cm/s SFA mid-portion 94 cm/s SFA distal 78 cm/s Popliteal 56 cm/s Posterior tibial 75 cm/s Anterior tibial 62 cm/s Dorsalis pedis 82 cm/s The waveforms are triphasic with diastolic flow. LEFT: Peak systolic velocities are as follows: WOOD DRILLING MACHINE OPERATOR 84 cm/s Deep femoral 85 cm/s SFA proximal 104 cm/s SFA mid-portion 128 cm/s SFA distal 99 cm/s Popliteal 106 cm/s Posterior tibial 122 cm/s Anterior tibial 72 cm/s Dorsalis pedis 65 cm/s The waveforms are triphasic with diastolic flow. IMPRESSION: No hemodynamically significant stenosis based on peak systolic velocity criteria. REFERENCE VALUES, [facility] ([facility]) vascular Imaging Lab Criteria: Peak systolic velocity ranges (in cm/sec) are as follows: <150 cm/s - <20 % stenosis 150-200 cm/s - 20-49% stenosis 200-300 cm/s - 50-75% stenosis >300 cm/s -> 75% stenosis 5.Name of Procedure Performed 1. Left foot I&D to bone () 2. Left foot bone biopsy () Procedure Details Procedure Details: PRE-PROCEDURE INFORMATION: In the pre-op holding area, the extremity to be operated on was clearly marked and the patient verified correct laterality of the marking. The patient was transferred to the OR table and placed in a supine position. A timeout was performed in which identification of the correct patient, procedure, location, and materials was done. The left foot and leg were prepped and draped in normal sterile fashion. DESCRIPTION OF PROCEDURE: Attention was directed to the left dorsal and plantar foot where previous incision wound vein where area of fluctuance was noted. An incision was made over this area and was deepened through blunt dissection. The incision was deepened to the level of abscess and bone. Care was taken to the dissection to avoid any neurovascular and tendinous structures. The incision was deepened to the bone, and the abscess appeared to be purulent fluid consistent with pus. The cortices of the bone was then removed with rongeur an all necrotic tissue. Significant amount of necrotic tissue was removed. After the abscess was drained, the area was irrigated with 3 L normal saline using cysto tubing. Deep cultures were then obtained from the wound. The area was then inspected and any areas of tracking, especially along the tendons were also drained. The wound was packed with Betadine-soaked gauze and we will need to be closed at a later date. POSTOPERATIVE INFORMATION: The patient tolerated the above noted procedure and anesthesia well and was transferred to the PACU with vital signs stable, and vascular status intact with capillary refill intact to all digits. Deep cultures were taken. Patient will need multiple I and D's to be able to salvage the foot. We will see how the toe toes. Patient will need to continue IV antibiotics. 6.Name of Procedure Performed 1. Left foot I&D to bone (96750) 2. Left foot 3rd toe amputation (55544) 3. Left foot delayed closure (24147) Procedure Details Procedure Details: PRE-PROCEDURE INFORMATION: In the pre-op holding area, the extremity to be operated on was clearly marked and the patient verified correct laterality of the marking. The patient was transferred to the OR table and placed in a supine position. A timeout was performed in which identification of the correct patient, procedure, location, and materials was done. The left foot and leg were prepped and draped in normal sterile fashion. DESCRIPTION OF PROCEDURE: Attention was directed to the right foot where previous incision was made. An incision was made over this area and was deepened through blunt dissection. The incision was deepened to the level of abscess and bone. Care was taken to the dissection to avoid any neurovascular and tendinous structures. The incision was deepened to the bone, and the abscess appeared to be purulent fluid consistent with pus. The cortices of the bone was then removed with rongeur an all necrotic tissue. After the abscess was drained, the area was irrigated with 3 L normal saline using cysto tubing. It was decided at this point that the 3rd toe not be salvageable and amputation was performed of the point. A partial delayed closure was then performed using 2-0 nylon after was deemed appropriate with no longer concern for infection. POSTOPERATIVE INFORMATION: The patient tolerated the above noted procedure and anesthesia well and was transferred to the PACU with vital signs stable, and vascular status intact with capillary refill intact to all digits. Patient will need 6 weeks IV antibiotics based off cultures. Patient will need wound VAC placed. Patient to be nonweightbearing on that foot. Follow up with me next week. Condition at Discharge: Fair Final Diagnosis/Problems List sepsis likely due to osteonecrosis of left foot 3rd proximal phalanx s/p amputation of 3rd toe of left foot acute osteomyelitis of 2nd to 4th metatarsal heads and proximal phalanges of left foot uncontrolled diabetes mellitus type 2 de to medication noncompliance marijuana use disorder Discharge Disposition: Home with Health Services Discharge Instruct/Medications Diet: Consistent carbohydrate Activity: No Restrictions, As Tolerated Follow Up/Referral: follow up with PCP follow up with Podiatry Medications: iv vancomycin 1gm bid for 6 weeks iv rocephin 1gm daily for 6 weeks Scheduled Insulin Glargine (Lantus), 30 UNIT SC HS Metformin Hydrochloride (Metformin Hcl), 1 TAB PO BID Durable Medical Equipment Blood Glucose Monitoring Suppl (D-Care Glucometer Kit/Glu W/Device), KIT XX BID, (DME) Lancets (Accu-Chek Softclix Lancet), BOX XX BID, (DME) Discharge Statement: "Patient was advised to return to the ER or call 911 if any headaches, dizziness, shortness of breath, chest pain, abdominal pain, bleeding, fevers, or worsening of medical condition. Patient was counseled about treatment plan, medications, possible side effects, patientverbalized understanding. All questions were answered to the best of my ability. This discharge took greater then 30 minutes in planning, reviewing documentation, counseling the patient, and discussing with other team members." ASSESSMENT ASSESSMENT Assessment sepsis, likely due to infected left foot wound/osteonecrosis Date of Service: Dec 19, 2024 Billing Provider: LEONA GOODRICH MD Common Visit Codes: 96334-UKX/OBS DISCH DAY >30min MONICA DE RESIDENT Dec 19, 2024 18:41
[2024-12-20] VITALS (7 sets, daily range): BP systolic 113–128; BP diastolic 73–87; PULSE 90–94; RESP 18–20; TEMP 97–98.1; O2SAT 98
[2024-12-20] MEDS: VANCOMYCIN 1.25GM/250ML 250 ML IV SCH ×2 (14:00→18:00)
--- NOTE | 2024-12-20 16:38 | DVHPNRES ---
Progress Note Date Seen: Dec 20, 2024 Resident Creating Document: MONICA DE RESIDENT Has the PT tested + for MRSA If YES, has PT been informed?: No Medical Necessity Reason Pt with a Central, PICC or Fol: Yes The following are medically ne: PICC Line Subjective Review of Systems Crista Julian is a 28-year-old female with past medical history of type 2 diabetes for the past 13 years who presented to the emergency department with complaints of infected wound of the left foot. Patient states that she was admitted on 11/20/2024 to this facility because she had a callus on her foot which she picked, that began to bleed and got infected with pus oozing out. She was admitted by Dr. Rodriguez/podiatry and he performed incision and drainage procedures on her 3 times during her stay at the hospital. Patient reports she was sent home with a PICC line and medication antibiotic Ancef. She had home health, and wound was cleaned last on Monday. Today she reports that she went for a follow up appointment with her mud jack operator, Dr. Rodriguez who instructed her to go to the ED again for admission for another debridement procedure on her left foot. Patient denies any fever, chills, shortness of breath, chest pain, abdominal pain, nausea, vomiting, headache or any other complaints. On inquiry the patient states that she has had type 2 diabetes for the past 13 years and has been noncompliant to her insulin medication and metformin for the past 5 years because she suffers from depression. On inquiry she has no suicidal ideation or plan now but reports she had it in her last hospitalization. Patient states that she has been to her PCP who has referred her to a behavioral health specialist. Patient reports that she has been compliant with metformin 500 mg, Lantus 30 mg HS and Ancef medication daily for the past 2 weeks. She states that her blood glucose levels have been good and today it was 107 in the morning. Patient is septic on admission with a heart rate of 98 and WBC of 12.2 with a source of infection being her left foot wound. We are admitting her for further workup. past medical history: As stated above Past surgical history: Incision and drainage of the same wound on her left leg 3 times in the last hospitalization Family history: Father's mother and sister had diabetes, patient's brother has diabetes type 2 as well social history: Patient denies smoking, drinking alcohol or using any other illicit drugs now. Patient admits she used to smoke marijuana heavily for 10 years and stopped 3 weeks ago when she got hospitalized home medications: Ancef via PICC line, metformin 500 mg, Lantus 30 HS allergies: None Patient seen and examined at bedside. Patient is alert and oriented to time, place person and responding to all questions. Eyes: No Pain, No Vision change, No Conjunctivae inflammation, No Eyelid inflammation, No Redness ENT: No Ear pain, No Ear discharge, No Nose pain, No Nose discharge, No Nose congestion, No Mouth pain, No Mouth swelling, No Throat pain, No Throat swelling Cardiovascular: No Chest Pain, No Palpitations, No Orthopnea, No Paroxysmal No Dyspnea, No Edema, No Lt Headedness Respiratory: No Cough, No Dry, No Shortness of breath, No SOB with exertion, No Wheezing, No Hemoptysis, No Pleuritic Pain, No Sputum Gastrointestinal: No Nausea, No Vomiting, No Abdominal Pain, No Diarrhea, No Constipation, No Melena, No Hematochezia Genitourinary: No Dysuria, No Frequency, No Incontinence, No Hematuria, No Retention 12/14/2024: Patient was seen and examined by me at the bedside today. All charts and lab work were reviewed. Dr. Rodriguez and let us know that the surgery would happen on Monday and to keep the patient NPO from Monday midnight. We put the patient back on diabetic diet as she was NPO before. We added Maalox as the patient complained of burning sensation in the abdomen 12/15/2024- Patient was seen today at bedside, labs and chart reviewed. Hemoglobin 7.1, ordered repeat H&H in the evening. Blood culture no growth so far. Wound culture Gram-positive bakari, MRSA screening negative. Patient with left foot wound on the dorsum and plantar surface and also blackish discoloration in the 3rd toe. CT scan of the Extensive soft tissue gas throughout the forefoot and air in the 3rd proximal phalanx concerning for infection with osteonecrosis. Erosive changes at the 2nd through 4th metatarsal heads as well as at the 2nd and 4th proximal phalanges suggesting osteomyelitis. Spoke to Dr. Mcmahan Podiatry and also send him the CT scan report of the left foot for possible osteonecrosi. Podiatry recommended for NPO after midnight, surgery tomorrow. Ordered clindamycin IV. We will continue other current management. 12/16/24- The patient was seen at bedside today. All labs and charts were reviewed. Clindamycin was discontinued and Rocephin 1 g daily was started. The patient underwent incision and drainage procedure with Podiatry today along with bone biopsy. Patient was asked to follow-up with infectious disease specialist in the outpatient. Duplex arterial study was ordered for the right leg. The patient was started on vitamin-D 47998 IU daily. account services associate consult for home IV antibiotics was also placed. Possible discharge for tomorrow was discussed with the patient. 12/17/24- The patient was seen at bedside today. All labs and charts were reviewed. The patient was continued on Rocephin iv 1 g daily vancomycin IV 1 g 12hours. Duplex arterial study showed no hemodynamically significant stenosis. Podiatry saw the patient and recommended 3rd incision and drainage and to amputation on 12/19/24. 12/18/24- The patient was seen at bedside today. All labs and charts were reviewed. IV antibiotics were continued. Patient was pending incision and drainage and to amputation by Dr. Rodriguez tomorrow. 12/19/24- patient was seen at bedside today. All labs and charts were reviewed. Patient underwent incision and drainage procedure on the left foot wound along with amputation of the 3rd toe of the left foot with an uncomplicated perioperative course. Antibiotics were continued. Patient will be sent home today with home health IV antibiotics for 6 weeks with stop date 07/08/2024. We are pending placement of wound VAC for discharge. Objective vital signs Vital Sign Date Time Temp Pulse Resp B/P (MAP) Pulse Ox O2 Delivery O2 Flow Rate FiO2 12/20/24 09:00 97.9 91 18 127/80 (96) 98 97.9 12/20/24 07:30 Room Air* 0 21 Total Intake and Output 12/19/24 12/19/24 12/20/24 15:00 23:00 07:00 Intake Total 175 ml 650 ml 800 ml Balance 175 ml 650 ml 800 ml medications Current Medications Medications Dose Ordered Sig/Nadir Route Start Time Stop Time Status Last Admin Dose Admin Ondansetron HCl 4 mg Q4HP PRN IV 12/13/24 16:45 12/19/24 12:15 4 MG Enoxaparin Sodium 40 mg DAILY SC 12/14/24 10:00 12/20/24 09:50 40 MG Acetaminophen 650 mg Q6HP PRN PO 12/13/24 16:45 12/14/24 20:41 650 MG Insulin Glargine 30 units HS SC 12/13/24 22:00 12/19/24 21:06 30 UNITS Insulin Human Lispro AC SC 12/13/24 17:00 12/20/24 11:24 1 UNITS Vancomycin HCl 0 ml @ 0 mls/hr UD IV 12/13/24 17:00 Pantoprazole Sodium 40 mg DAILY IV 12/14/24 10:00 12/20/24 09:50 40 MG Al Hydrox/Mg Hydrox/Simethicone 15 ml Q8HP PRN PO 12/14/24 13:45 Acetaminophen/ Hydrocodone Bitart 1 tab Q6HPRN PRN PO 12/15/24 11:45 12/16/24 20:09 1 TAB Ergocalciferol 50,000 unit Q7D PO 12/16/24 15:30 12/16/24 17:58 50,000 UNIT Ceftriaxone Sodium 50 ml @ 100 mls/hr DAILY@09 IV 12/17/24 09:00 12/20/24 09:49 100 MLS/HR Vancomycin HCl 250 ml @ 200 mls/hr Q8H IV 12/20/24 14:00 Examination General Appearance: Alert, Oriented X3, Cooperative, Not in acute distress HEENT: Atraumatic, Mucous membranes moist/pink Respiratory: Clear to auscultation, Normal air movement, No added sounds Cardiovascular: Regular rate, Normal S1, Normal S2, No murmurs Abdominal: Active bowel sounds, Soft, no distention, no tenderness Extremities: Patient's left foot is covered in bandage post the procedure Skin: No Significant rash, except past surgical scars Neuro: Normal speech, sensorimotor deficits none Psych/Mental Status: Mental status NL, Mood NL Nurse was there as nut sorter operator during examination laboratory and microbiology Laboratory Tests 12/20/24 09:30 12/19/24 05:38 12/16/24 05:58 Test 12/16/24 05:58 Range/Units Serum Glucose 98 74-106 mg/dL Microbiology Date/Time Source Procedure Growth Status 12/16/24 14:04 Foot Left Gram Stain - Final Resulted 12/16/24 14:04 Foot Left Anaerobic Culture - Preliminary Resulted 12/16/24 14:04 Foot Left Aerobic Culture - Final Resulted 12/13/24 18:18 Blood Blood Culture - Final NO GROWTH AFTER 5 DAYS OF INCUBATION. 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 Erosive changes of the 2nd through 4th metatarsal heads as well as at the 2nd and 4th proximal phalanges suggesting osteomyelitis. -x-ray of the foot shows: soft tissue swelling over the metatarsophalangeal joint of the left foot, osteoporotic changes of the head of the 2nd, 3rd, 4th and 5th metatarsals. There appears to be gas in the surrounding tissues of the metatarsophalangeal joints of the 2nd and 3rd digits. Findings are worrisome for osteomyelitis -blood culture negative so far -wound culture Gram-positive bakari on 12/13/24 -I&D done on 12/16/24 with bone biopsy - urine test negative - PT/PTT normal - Wound dressing as prescribed - IV vancomycin 1 gm q12 hrs with stop date 01/31/25 -started on rocephin 1gm daily on 12/16/24,stop date 01/31/25 -duplex arterial scan on 12/16/24 showed no hemodynamically significant stenosis -social work supervisor consult placed for home health for iv antibiotics -incision and drainage and toe amputation on 12/19/2024 -pending wound culture reports # uncontrolled type 2 diabetes mellitus -A1c on 11/20/2024 was 12.1 -insulin Lantus 30 units HS -insulin mild sliding scale -patient counselled on strict dietary and medication compliance -low carb diet # possible GERD -Protonix 40 mg p.o. daily -Maalox 15 mL Q8H # marijuana use disorder -counseled on cessation GI prophylaxis: Protonix 40mg daily iv DVT prophylaxis: Lovenox 40mg daily sc Goals of care: Full code, discussed for >20 minutes Plan discussed with Dr Muir Plan discussed with: Patient My Orders My Orders Orders - SIBIA,HARNOOR HONG RESIDENT Procedure Category Date Status Time * Certified Medical Assistant CONS 12/19/24 Transmitted Consult Discharge DISCHARGE 12/19/24 Transmitted 18:26 * Wound Consult CONS 12/20/24 Transmitted * Dietary Consult CONS 12/20/24 Transmitted 15:55 Wound Vac PA 12/20/24 In Process 15:55 Dietary Evaluation Review Recommendations by RD: Dietary education by RD, Protein Supplementation Comments: 1) Initiate MVI @ 1 tb qd 2) Initiate Khanh @ 1 pk bid 3) Initiate vitamin C @ 500 mg bid and zinc sulfate @ 220 mg qd for 7 days 4) Refer to outpatient RD/[facility] for diabetes education 5) Follow-up with podiatry 6) Continue to monitor I&O, labs, and skin integrity Expected Outcomes/Goals: 1) appetite and labs to improve 2) wound to improve 3) gradual wt loss 4) f/u in 3-5 days Date of Service: Dec 20, 2024 Billing Provider: CHANDAN MUIR MD Common Visit Codes: [id number] INP/OBS CARE(HIGH) Date of Service: Dec 20, 2024 Billing Provider: CHANDAN MUIR MD Common Visit Codes: [id number] INP/OBS CARE(HIGH) Date of Service: Dec 20, 2024 Billing Provider: CHANDAN MUIR MD Common Visit Codes: [id number] INP/OBS CARE(HIGH) MONICA DE RESIDENT Dec 20, 2024 16:38 CHANDAN MUIR MD Dec 21, 2024 10:15
== END 2024-12-20 18:24 | disposition home health service (06) | DRG 710 ==
LOC: ER 10:35 → OVERFLOW 16:33 → EAST 18:45
PROVIDERS: ADMIT Internal Medicine; ATTEND Internal Medicine
PROC: 0Y9N0ZZ Drainage of Left Foot, Open Approach (ICD-10-PCS; principal; 2024-12-16 13:41)
PROC: 0Y9N0ZZ Drainage of Left Foot, Open Approach (ICD-10-PCS; 2024-12-19)
PROC: 0Y6U0Z0 Detachment at Left 3rd Toe, Complete, Open Approach (ICD-10-PCS; 2024-12-19)
DX: A41.9 Sepsis, unspecified organism (principal); M72.6 Necrotizing fasciitis; L97.429 Non-pressure chronic ulcer of left heel and midfoot with unspecified severity; L03.116 Cellulitis of left lower limb; E11.621 Type 2 diabetes mellitus with foot ulcer; L02.612 Cutaneous abscess of left foot; M86.172 Other acute osteomyelitis, left ankle and foot; E11.69 Type 2 diabetes mellitus with other specified complication; K21.9 Gastro-esophageal reflux disease without esophagitis; L97.529 Non-pressure chronic ulcer of other part of left foot with unspecified severity; M87.88 Other osteonecrosis, other site; Z79.84 Long term (current) use of oral hypoglycemic drugs; Z91.199 Patient's noncompliance with other medical treatment and regimen due to unspecified reason; Z79.899 Other long term (current) drug therapy
CPT/HCPCS: 36415; 71045; 73620; 73700; 80048; 80053; 80202; 81025; 82565; 82962; 83605; 83735; 84702; 85014; 85018; 85025; 85610; 85652; 85730; 86141; 86850; 86900; 86901; 87040; 87070; 87075; 87076; 87081; 87205; 93005; 93925; 96365; 96366; G0378; J0692; J1815; J1885; J2003; J2250; J2405; J2470; J2704; J3490